=== PATIENT | male | born 1930 | race African-American/Black ===

== ENCOUNTER 2018-02-10 09:37 | Emergency (ER) | payer MEDICARE, MEDICAID ==
[2018-02-10] VITALS (7 sets, daily range): BP systolic 120–148; BP diastolic 44–62
[~2018-02-10] VITALS: Ht 170.2 cm; Wt 77.1 kg
[~2018-02-10 09:37] MED LIST: IBUPROFEN600 MG PO; VICODIN 5-5001 EACH PO
[2018-02-10] MEDS ORDERED: UNOBMED (09:48)
[2018-02-10] MEDS ORDERED: Cefepime HCl 2 GM in NS 110 ML IV STA (09:51)
[2018-02-10] MEDS ORDERED: Solu-MEDROL 125mg Inj IVP ONE (10:00)
[2018-02-10] MEDS ORDERED: Ipratropium 0.02% Inh Soln 2.5ml UD HHN ONE (10:00)
[2018-02-10] MEDS: Albuterol ud Inhalation HHN SCH ×3 (10:02→10:30)
--- NOTE | 2018-02-10 10:24 | Emergency Room Report ---
History of Present Illness General Chief Complaint: Dyspnea/Respdistress Source: Patient Present Illness HPI Patient presents with cough, shortness of breath and wheezing. He also has lack of appetite. In addition to that he's been having some chills. He's been feeling weak. The patient has a history of COPD and is still smoking. He doesn't have a machine at home but uses a inhaler. The patient denies any vomiting or nausea. He denies any significant chest pain at this time. He does have some dyspnea on exertion. There is no dysuria any denies any rash. He's had a headache recently. Allergies: Coded Allergies: No Known Allergies (Unverified , 02/10/18) Patient History Past Medical History: see triage record Social History: Reports: smoking Social History Narrative home by himself, but family check on him - Born [place] Reviewed Nursing Documentation: PMH: Agreed; PSxH: Agreed Nursing Documentation-PMH Past Medical History: No Stated History Review of Systems All Other Systems: negative except mentioned in HPI Physical Exam Vital Signs Date Time Temp Pulse Resp B/P (MAP) Pulse Ox O2 Delivery O2 Flow Rate FiO2 02/10/18 09:46 99.0 104 28 170/65 97 Room Air 99.0 02/10/18 10:02 21 Sp02 EP Interpretation: reviewed, normal General Appearance: alert, mild distress, Chronically Ill Eyes: bilateral eye normal inspection, bilateral eye PERRL ENT: moist mucus membranes Neck: full range of motion Respiratory: rales - L side, wheezing, expiration Cardiovascular #1: no edema, tachycardia, irregularly irregular Cardiovascular #2: 2+ radial (R) Gastrointestinal: decreased bowel sounds, scaphoid Genitourinary: no CVA tenderness Musculoskeletal: back normal, digits/nails normal, normal range of motion, no calf tenderness, Cristal's Sign negative Neurologic: alert, grossly normal - generalized weak Psychiatric: mood/affect normal Skin: other - hot Medical Decision Making Diagnostic Impression: Primary Impression: Right lower lobe pneumonia Qualified Codes: J18.1 - Lobar pneumonia, unspecified organism Additional Impressions: UTI (urinary tract infection) Qualified Codes: N30.00 - Acute cystitis without hematuria COPD exacerbation ER Course The patient presents febrile and respiratory distress. His oxygen saturation is good however is dyspneic and has wheezes and rales. Exam is consistent with pneumonia however differential also includes bronchitis and viral syndrome. Also need to exclude other possible sources for infection. Evaluation will be with EKG, chest x-ray blood cultures lactates and other labs. The patient retreated was slight Medrol breathing treatments Tylenol fluid hydration and antibiotics. EKG without injury. CXR with early RML infiltrate and COPD. WBC high normal. Pyuria. Renal insufficiency. Improving but still with wheezing. Discussed with Dr. Beverly who accepts the patient. Call [facility] as family want to transfer there. Not accept patients. Family refusing to go to other hospitals. I discussed risk of leaving AMA. Patient and family understand. They insist on leaving and going to [facility]. Calling [facility] to let them know patient signing out AMA. She and patient changed her mind (vacillating many times) and accepted going to [facility]. Laboratory Tests Test 02/10/18 10:10 02/10/18 10:15 02/10/18 11:35 White Blood Count 10.6 K/UL (4.8-10.8) Red Blood Count 4.02 M/UL (4.70-6.10) L Hemoglobin 12.5 G/DL (14.2-18.0) L Hematocrit 37.0 % (42.0-52.0) L Mean Corpuscular Volume 92 FL (80-99) Mean Corpuscular Hemoglobin 31.2 PG (27.0-31.0) H Mean Corpuscular Hemoglobin Concent 33.9 G/DL (32.0-36.0) Red Cell Distribution Width 11.8 % (11.6-14.8) Platelet Count 206 K/UL (150-450) Mean Platelet Volume 6.8 FL (6.5-10.1) Neutrophils (%) (Auto) 79.7 % (45.0-75.0) H Lymphocytes (%) (Auto) 13.4 % (20.0-45.0) L Monocytes (%) (Auto) 6.1 % (1.0-10.0) Eosinophils (%) (Auto) 0.3 % (0.0-3.0) Basophils (%) (Auto) 0.5 % (0.0-2.0) Prothrombin Time 10.5 SEC (9.30-11.50) Prothrombin Time INR 1.0 (0.9-1.1) PTT 28 SEC (23-33) Sodium Level 137 MMOL/L (136-145) Potassium Level 4.2 MMOL/L (3.5-5.1) Chloride Level 104 MMOL/L (98-107) Carbon Dioxide Level 22 MMOL/L (21-32) Anion Gap 11 mmol/L (5-15) Blood Urea Nitrogen 28 mg/dL (7-18) H Creatinine 1.4 MG/DL (0.55-1.30) H Estimate Glomerular Filtration Rate mL/min (>60) Glucose Level 84 MG/DL (74-106) Lactic Acid Level 2.20 mmol/L (0.66-2.22) 1.30 mmol/L (0.66-2.22) Calcium Level 9.4 MG/DL (8.5-10.1) Total Bilirubin 1.0 MG/DL (0.2-1.0) Aspartate Amino Transferase (AST) 30 U/L (15-37) Alanine Aminotransferase (ALT) 15 U/L (12-78) Alkaline Phosphatase 122 U/L (46-116) H Total Creatine Kinase 70 U/L (26-308) Troponin I 0.000 ng/mL (0.000-0.056) Pro-B-Type Natriuretic Peptide 666 pg/mL (0-125) H Total Protein 8.8 G/DL (6.4-8.2) H Albumin 3.1 G/DL (3.4-5.0) L Globulin 5.7 g/dL Albumin/Globulin Ratio 0.5 (1.0-2.7) L Urine Color Yellow Urine Appearance Turbid Urine pH 6 (4.5-8.0) Urine Specific [place] 1.010 (1.005-1.035) Urine Protein 3+ (NEGATIVE) H Urine Glucose (UA) Negative (NEGATIVE) Urine Ketones Negative (NEGATIVE) Urine Occult Blood 4+ (NEGATIVE) H Urine Nitrite Positive (NEGATIVE) H Urine Bilirubin Negative (NEGATIVE) Urine Urobilinogen 4 MG/DL (0.0-1.0) H Urine Leukocyte Esterase 2+ (NEGATIVE) H Urine RBC 15-20 /HPF (0 - 0) H Urine WBC 40-60 /HPF (0 - 0) H Urine Squamous Epithelial Cells Few /LPF (NONE/OCC) Urine Bacteria Many /HPF (NONE) H Urine Hyaline Casts 0-2 /LPF (NONE) H EKG Diagnostic Results Rate: tachycardiac Rhythm: other ST Segments: no acute changes Rhythm Strip Diag. Results EP Interpretation: yes Rhythm: other - ST rate 102 with frequent PVCs Chest X-Ray Diagnostic Results Chest X-Ray Diagnostic Results : Chest X-Ray Ordered: Yes # of Views/Limited/Complete: 1 View Indication: Other Interpretation: no effusion, no pneumothorax, other - Right lower lobe infiltrate Impression: Other Electronically Signed by: Electronically signed by Gee Santos MD Last Vital Signs Date Time Temp Pulse Resp B/P (MAP) Pulse Ox O2 Delivery O2 Flow Rate FiO2 02/10/18 21:11 97.9 86 24 141/56 96 Room Air 2.0 21 97.9 86 Status: improved Disposition: XFER SHT-TRM HOSP Condition: Serious Gee Santos M.D. February 10, 2018 10:23
[2018-02-10 10:47] LABS: APPEARANCE,URINE TURBID; BILIRUBIN, URINE NEGATIVE (NEGATIVE); GLUCOSE, URINE (UA) NEGATIVE (NEGATIVE); KETONES,URINE NEGATIVE (NEGATIVE); LEUKOCYTE ESTERASE ,URINE 2+ (NEGATIVE); NITRITE,URINE POSITIVE (NEGATIVE); PH,URINE 6 (4.5-8.0); PROTEIN,URINE 3+ (NEGATIVE); UROBILINOGEN,URINE 4 MG/DL (0.0-1.0)
[2018-02-10 10:54] LABS: COLOR,URINE YELLOW
[2018-02-10 11:01] LABS: ANION GAP 11 mmol/L (5-15); BASOPHILS % (AUTO) 0.5 % (0.0-2.0); BLOOD UREA NITROGEN 28 mg/dL (7-18); CALCIUM 9.4 MG/DL (8.5-10.1); CARBON DIOXIDE 22 MMOL/L (21-32); CHLORIDE 104 MMOL/L (98-107); CREATININE 1.4 MG/DL (0.55-1.30); EOSINOPHILS % (AUTO) 0.3 % (0.0-3.0); HEMOGLOBIN 12.5 G/DL (14.2-18.0); LYMPHOCYTES % (AUTO) 13.4 % (20.0-45.0); MEAN CORPUSCULAR VOLUME 92 FL (80-99); MONOCYTES % (AUTO) 6.1 % (1.0-10.0); NEUTROPHILS % (AUTO) 79.7 % (45.0-75.0); PLATELET COUNT 206 K/UL (150-450); POTASSIUM 4.2 MMOL/L (3.5-5.1); RED BLOOD COUNT 4.02 M/UL (4.70-6.10); RED CELL DISTRIBUTION WIDTH 11.8 % (11.6-14.8); SODIUM 137 MMOL/L (136-145); WHITE BLOOD COUNT 10.6 K/UL (4.8-10.8)
[2018-02-10 11:12] LABS: ALANINE AMINOTRANSFERASE 15 U/L (12-78); ALBUMIN 3.1 G/DL (3.4-5.0); ALBUMIN/GLOBULIN RATIO 0.5 (1.0-2.7); ALKALINE PHOSPHATASE 122 U/L (46-116); ASPARTATE AMINO TRANSFERASE 30 U/L (15-37); CREATINE KINASE 70 U/L (26-308)
--- NOTE | 2018-02-10 11:23 | Diagnostic Imaging Report ---
Indication: Cough Comparison: 05/22/2013 A single view chest radiograph was obtained. Findings: Basilar reticular densities are prominent. Some of this is due to atelectasis. However, findings largely present on the prior occasion and therefore chronic. The upper lung donaldson appear slightly hyperlucent. This is suggestive of COPD. Heart is mildly enlarged. Bones are unremarkable IMPRESSION: Chronic lung disease
[2018-02-10] MEDS ORDERED: Albuterol ud Inhalation HHN ONE (15:00)
== END 2018-02-10 21:16 | disposition short-term general hospital (02) ==
LOC: EMR 09:58
DX: J18.9 Pneumonia, unspecified organism (principal); N39.0 Urinary tract infection, site not specified; J44.1 Chronic obstructive pulmonary disease with (acute) exacerbation; F17.200 Nicotine dependence, unspecified, uncomplicated
CPT/HCPCS: 36415; 71045; 80053; 81003; 82550; 83605; 83880; 84484; 85025; 85610; 85730; 87040; 87086; 87181; 93005; 94640; 94664; 99285; J1956; J2930

== ENCOUNTER 2019-02-03 18:52 | Inpatient (IN) | payer OTHER, MEDICAID ==
[~2019-02-03] VITALS: Ht 162.6 cm; Wt 67.1 kg
[~2019-02-03 18:52] MED LIST changes: +AMLODIPINE BES2.5 MG ORAL; +KEFLEX500 MG ORAL; +UNOBMED
[2019-02-03] MEDS ORDERED: Solu-MEDROL 125mg Inj IVP ONE (19:00)
--- NOTE | 2019-02-03 19:00 | NUR ---
Note undone in EDM - 02/03/19 at 2031 by LUIZA ED Nurse Note: Patient presents to ER due to respiratory distress. Neighbor checked on the patient and patient was not able to open the door. EMS found patient with RR 45 and pulse oximetry reading @ ~ 60% on room air. Patient awake, alert, oriented x 3. Labored breathing with RR 40 noted with diminished breath sounds in all lung donaldson. Patient arrived here with CPAP. Per EMS, pulse oximetry reading improved to 90% after CPAP. Placed patient on cardiac montior. Sinus tachycardia with 125 HR noted. Pulse oximetry reading > 94% with BiPAP.
--- NOTE | 2019-02-03 19:00 | NUR ---
ED Nurse Note: RT placed patient on BiPAP. Pulse oximetry reading > 94% with RR 47. Patient remained awake and able to follow commands. RN noticed bilateral wrist swelling, warm to touch. Per patient, patient has hx of arthritis and reports no injury. ERMD at bedside and notified. RN inserted IV to the right forearm (no redness or swelling noted). RNs unable to establish any IVs on any other area at this time. ERMD made aware.
--- NOTE | 2019-02-03 19:00 | NUR ---
ED Nurse Note: Patient presents to ER due to respiratory distress. Neighbor checked on the patient and patient was not able to open the door. EMS found patient with RR 45 and pulse oximetry reading @ ~ 60% on room air. Patient awake. Labored breathing with RR 40 noted with diminished breath sounds in all lung donaldson. Patient unable to answer questions due to SOB and withdraws from pain. Patient arrived here with CPAP. Per EMS, pulse oximetry reading improved to 90% after CPAP. Placed patient on cardiac montior. Sinus tachycardia with 125 HR noted. Pulse oximetry reading > 94% with BiPAP.
--- NOTE | 2019-02-03 19:05 | NUR ---
ED Nurse Note: Report given to MARICEL Gamboa. Patient on BiPAP with pulse oximetry reading > 94%.
--- NOTE | 2019-02-03 19:06 | NUR ---
ED Nurse Note: Received report from Liza/MARICEL. Pt is awake with respiration distress . Bp 170/103. P 128, O 2 76%. Pt is ready for intubation.
[2019-02-03] MEDS: Ipratropium 0.02% Inh Soln 2.5ml UD HHN SCH ×3 (19:08→21:05)
[2019-02-03] MEDS: Albuterol ud Inhalation HHN SCH ×3 (19:08→21:05)
[2019-02-03 19:24] LABS: BASOPHILS % (AUTO) 0.5 % (0.0-2.0); EOSINOPHILS % (AUTO) 0.1 % (0.0-3.0); HEMATOCRIT 40.8 % (42.0-52.0); HEMOGLOBIN 13.6 G/DL (14.2-18.0); LYMPHOCYTES % (AUTO) 9.7 % (20.0-45.0); MEAN CORPUSCULAR VOLUME 91 FL (80-99); MONOCYTES % (AUTO) 8.2 % (1.0-10.0); NEUTROPHILS % (AUTO) 81.6 % (45.0-75.0); PLATELET COUNT 187 K/UL (150-450); RED BLOOD COUNT 4.49 M/UL (4.70-6.10); RED CELL DISTRIBUTION WIDTH 12.1 % (11.6-14.8); WHITE BLOOD COUNT 15.7 K/UL (4.8-10.8)
--- NOTE | 2019-02-03 19:30 | NUR ---
ED Nurse Note: Pt was intubated by Dr. Abel/ Jacqui/ RACHELLE. Vet setting : AC 14, Tv 500, O2 100%, Peep 5. ETT 8 #.
[2019-02-03 19:36] VITALS: BP 113/76
[2019-02-03 19:37] LABS: ANION GAP 22 mmol/L (5-15); BLOOD UREA NITROGEN 53 mg/dL (7-18); CALCIUM 10.6 MG/DL (8.5-10.1); CARBON DIOXIDE 15 MMOL/L (21-32); CHLORIDE 106 MMOL/L (98-107); CREATININE 3.3 MG/DL (0.55-1.30); SODIUM 143 MMOL/L (136-145)
--- NOTE | 2019-02-03 19:38 | Emergency Room Report ---
History of Present Illness General Chief Complaint: Dyspnea/Respdistress Source: Patient, Medical Record, EMS Present Illness HPI Patient presents emergency department today complaint acute onset of severe shortness of breath. Patient has a history of COPD was a smoker. Patient apparently was found to be severely short of breath by her further evaluation. Patient was placed on BiPAP prior to arrival. Patient is unable to provide much history because he was so severely short of breath is only able to speak 1 word sentences. Symptoms noted to be highly severe. Patient was tachypneic tachycardic. No other modifying factors. No other associated signs and symptoms. No other complaints were noted. Allergies: Coded Allergies: No Known Allergies (Unverified , 02/10/18) UNABLE TO ASSESS (Unverified , 02/03/19) Patient History Past Medical History: COPD Past Surgical History: none Pertinent Family History: none Social History: Reports: smoking Reviewed Nursing Documentation: PMH: Agreed; PSxH: Agreed Nursing Documentation-PMH Past Medical History: No History, Except For Hx COPD: Yes Review of Systems All Other Systems: limited - Patient is critical Physical Exam Vital Signs Date Time Temp Pulse Resp B/P (MAP) Pulse Ox O2 Delivery O2 Flow Rate FiO2 02/03/19 18:54 95.5 126 47 170/107 02/03/19 19:00 Bi-pap 100 02/03/19 19:09 93 Sp02 EP Interpretation: reviewed, normal General Appearance: alert, severe distress, thin Head: normocephalic, atraumatic Eyes: bilateral eye normal inspection ENT: hearing grossly normal, dry mucus membranes, other - Severe respiratory distress Neck: normal inspection, supple Respiratory: respiratory distress, decreased breath sounds, accessory muscle use, wheezing, expiration, inspiration Cardiovascular #1: no edema, tachycardia Gastrointestinal: normal inspection, soft, no hernia Genitourinary: no CVA tenderness Musculoskeletal: normal inspection, back normal Neurologic: alert, responsive, grossly normal Psychiatric: depressed affect, anxious Skin: normal inspection, normal color, no rash Procedures Critical Care Time Critical Care Time Patient had a critical medical condition which untreated could potentially result in life or limb threatening injury. Total critical care time excluding procedures was approximately 45 minutes. Intubation Intubation : Consent: Emergent Intubation Method: orotracheal Tube Size (cm): 8.0 Medications: Etomidate, Succinylcholine Breath Sounds after Intubation: equal Intubation Complications: no complications Post Intubation Xray: Yes Attempts: One Patient Tolerated: Well Complications: None Medical Decision Making Diagnostic Impression: Primary Impression: Respiratory distress Additional Impressions: Severe sepsis COPD exacerbation Pneumonia ER Course Patient presents to the emergency department today with severe shortness of breath. Differential considerations include pneumonia, COPD exacerbation, pneumothorax, CHF just to name a few. Given the severity of the patient's presentation I felt this is a highly complex patient. This patient required extensive workup. Patient was severely dyspneic requiring emergent intubation. BiPAP failed. Patient was intubated. ABG improved. Chest x-ray shows ET tube in good position. There is evidence of increased densities in the lungs with elevated white blood cell count we will start IV antibiotics. Blood cultures were obtained prior to IV antibiotics ministration. Patient lactic acid level was also elevated. Therefore patient was started IV fluid boluses. Focused sepsis exam was performed. Because of patient's presentation patient will require admission. Case was discussed with Dr. Dowling for admission. Patient will be admitted to intensive care unit for the treatment. Labs Test 02/03/19 19:10 02/03/19 20:20 White Blood Count 15.7 K/UL (4.8-10.8) Red Blood Count 4.49 M/UL (4.70-6.10) Hemoglobin 13.6 G/DL (14.2-18.0) Hematocrit 40.8 % (42.0-52.0) Mean Corpuscular Volume 91 FL (80-99) Mean Corpuscular Hemoglobin 30.2 PG (27.0-31.0) Mean Corpuscular Hemoglobin Concent 33.2 G/DL (32.0-36.0) Red Cell Distribution Width 12.1 % (11.6-14.8) Platelet Count 187 K/UL (150-450) Mean Platelet Volume 6.0 FL (6.5-10.1) Neutrophils (%) (Auto) 81.6 % (45.0-75.0) Lymphocytes (%) (Auto) 9.7 % (20.0-45.0) Monocytes (%) (Auto) 8.2 % (1.0-10.0) Eosinophils (%) (Auto) 0.1 % (0.0-3.0) Basophils (%) (Auto) 0.5 % (0.0-2.0) Sodium Level 143 MMOL/L (136-145) Potassium Level 4.0 MMOL/L (3.5-5.1) Chloride Level 106 MMOL/L (98-107) Carbon Dioxide Level 15 MMOL/L (21-32) Anion Gap 22 mmol/L (5-15) Blood Urea Nitrogen 53 mg/dL (7-18) Creatinine 3.3 MG/DL (0.55-1.30) Estimat Glomerular Filtration Rate mL/min (>60) Glucose Level 112 MG/DL (74-106) Calcium Level 10.6 MG/DL (8.5-10.1) Total Bilirubin 1.8 MG/DL (0.2-1.0) Direct Bilirubin 0.9 MG/DL (0.0-0.3) Aspartate Amino Transf (AST/SGOT) 45 U/L (15-37) Alanine Aminotransferase (ALT/SGPT) 20 U/L (12-78) Alkaline Phosphatase 129 U/L (46-116) Creatine Kinase MB 3.5 NG/ML (0.0-3.6) Troponin I 0.120 ng/mL (0.000-0.056) Pro-B-Type Natriuretic Peptide 6053 pg/mL (0-125) Total Protein 10.0 G/DL (6.4-8.2) Albumin 3.4 G/DL (3.4-5.0) Globulin 6.6 g/dL Albumin/Globulin Ratio 0.5 (1.0-2.7) Lipase 75 U/L (73-393) Lactic Acid Level 4.80 mmol/L (0.4-2.0) EKG Diagnostic Results Rate: tachycardiac Rhythm: NSR ST Segments: other - Nonspecific ST segment changes Rhythm Strip Diag. Results EP Interpretation: yes Rate: 130 Rhythm: NSR, no PVC's, no ectopy Chest X-Ray Diagnostic Results Chest X-Ray Diagnostic Results : Chest X-Ray Ordered: Yes # of Views/Limited/Complete: 1 View Indication: Shortness of Breath EP Interpretation: Yes Interpretation: no effusion, no pneumothorax, other - ET tube in good position, basilar infiltrates versus atelectasis. Impression: Other - ET tube in good position, possible pneumonia Electronically Signed by: Electronically signed by Leno Abel MD Last Vital Signs Date Time Temp Pulse Resp B/P (MAP) Pulse Ox O2 Delivery O2 Flow Rate FiO2 02/03/19 19:10 135 47 Bi-pap 50 02/03/19 19:09 93 02/03/19 18:54 95.5 170/107 Status: improved Disposition: ADMITTED INPATIENT Condition: Critical Referrals: NON PHYSICIAN (PCP) Leno Abel MD Feb 03, 2019 19:38
[2019-02-03] MEDS ORDERED: Azithromycin 500 MG in D5W 275 ML IVPB ONE (19:45)
[2019-02-03] MEDS ORDERED: cefTRIAXone 1 GM in NS 55 ML IVPB ONE (19:45)
[2019-02-03 19:50] LABS: ALANINE AMINOTRANSFERASE 20 U/L (12-78); ALBUMIN 3.4 G/DL (3.4-5.0); ALBUMIN/GLOBULIN RATIO 0.5 (1.0-2.7); ALKALINE PHOSPHATASE 129 U/L (46-116); ASPARTATE AMINO TRANSFERASE 45 U/L (15-37); BILIRUBIN,TOTAL 1.8 MG/DL (0.2-1.0); CKMB 3.5 NG/ML (0.0-3.6)
[2019-02-03 20:00] LABS: BILIRUBIN,DIRECT 0.9 MG/DL (0.0-0.3)
[2019-02-03] MEDS ORDERED: LORazepam Inj 2mg/ml 1ml ONE (20:03)
--- NOTE | 2019-02-03 20:11 | Diagnostic Imaging Report ---
EXAM: XR Chest, 1 View CLINICAL HISTORY: COUGH TECHNIQUE: Frontal view of the chest. COMPARISON: Chest x-ray February 10, 2018 FINDINGS: Lungs: Lungs again show generalized hyperlucency with coarsened interstitial pattern opacities in the bilateral lung bases. Pleural space: Unremarkable. No pneumothorax. Heart: No change in mild cardiac enlargement. Mediastinum: Unremarkable. Bones/joints: Unremarkable. Tubes, lines and devices: Interval endotracheal intubation with the ET tube terminating 3.5 cm above justin. IMPRESSION: Satisfactory interval endotracheal intubation with similar-appearing findings of chronic lung disease. No pneumothorax.
[2019-02-03] MEDS ORDERED: LORazepam 20 MG in NS 90 ML IV ONE (20:15)
[2019-02-03] MEDS ORDERED: LORazepam Inj 2mg/ml 1ml IV ONE ×2 (20:15→20:45)
[2019-02-03] MEDS ORDERED: Succinylcholine 20mg/ml 10ml vial IV ONE (20:45)
[2019-02-03] MEDS ORDERED: Etomidate 40mg/20ml Inj IV ONE (20:45)
--- NOTE | 2019-02-03 20:49 | NUR ---
ED Nurse Note: Started Ativan drip at 1mg/hr ( 5ml/hr).
[2019-02-03] MEDS ORDERED: Sodium Chloride 1,900 ML IVLG ONE (21:15)
--- NOTE | 2019-02-03 21:26 | NUR ---
Gloria Rivas ([facility]) - [phone]
--- NOTE | 2019-02-03 22:25 | Pulmonolgy Critical Care Note ---
Critical Care - Asmt/Plan Assessment/Plan: Pulmonary CCM Note HPI Patient is an 88 year old man with h/o COPD who presented complaining of worsening shortness of breath, acute in onset. Patient was placed on BiPAP prior to arrival, subsequently intubated in the ED. No other complaints were noted in the ED. Allergies: No Known Allergies Past Medical History: COPD Past Surgical History: none Social History: Reports: smoking All Other Systems: limited Physical Exam Vital Signs Noted Date Time Temp Pulse Resp B/P (MAP) Pulse Ox O2 Delivery O2 Flow Rate FiO2 02/03/19 18:54 95.5 126 47 170/107 02/03/19 19:00 Bi-pap 100 02/03/19 19:09 93 General Appearance: Sedated, on ventilator, mild wasting Head: normocephalic, atraumatic Eyes: bilateral eye normal inspection ENT: Dry mucus membranes, other - JVP not elevated Neck: normal inspection, supple Respiratory: respiratory distress, decreased breath sounds, accessory muscle use, wheezing, expiration, inspiration Cardiovascular: HS1, HS2, Normal, RRR, no edema, tachycardia Gastrointestinal: normal inspection, soft, no hernia Genitourinary: no CVA tenderness Musculoskeletal: normal inspection, back normal Neurologic: Sedated, no focal signs, no seizures, grossly normal Psychiatric: NA Skin: normal inspection, normal color, no rash Impression: Respiratory Failure COPD exacerbation Pneumonia Plan: Broad spectrum antibiotics IV Solumedrol HHN IV fluid boluses PRN Urinary catheter PPX Sedation Titrate O2 ABG Labs Test 02/03/19 19:10 02/03/19 20:20 White Blood Count 15.7 K/UL (4.8-10.8) Red Blood Count 4.49 M/UL (4.70-6.10) Hemoglobin 13.6 G/DL (14.2-18.0) Hematocrit 40.8 % (42.0-52.0) Mean Corpuscular Volume 91 FL (80-99) Mean Corpuscular Hemoglobin 30.2 PG (27.0-31.0) Mean Corpuscular Hemoglobin Concent 33.2 G/DL (32.0-36.0) Red Cell Distribution Width 12.1 % (11.6-14.8) Platelet Count 187 K/UL (150-450) Mean Platelet Volume 6.0 FL (6.5-10.1) Neutrophils (%) (Auto) 81.6 % (45.0-75.0) Lymphocytes (%) (Auto) 9.7 % (20.0-45.0) Monocytes (%) (Auto) 8.2 % (1.0-10.0) Eosinophils (%) (Auto) 0.1 % (0.0-3.0) Basophils (%) (Auto) 0.5 % (0.0-2.0) Sodium Level 143 MMOL/L (136-145) Potassium Level 4.0 MMOL/L (3.5-5.1) Chloride Level 106 MMOL/L (98-107) Carbon Dioxide Level 15 MMOL/L (21-32) Anion Gap 22 mmol/L (5-15) Blood Urea Nitrogen 53 mg/dL (7-18) Creatinine 3.3 MG/DL (0.55-1.30) Estimat Glomerular Filtration Rate mL/min (>60) Glucose Level 112 MG/DL (74-106) Calcium Level 10.6 MG/DL (8.5-10.1) Total Bilirubin 1.8 MG/DL (0.2-1.0) Direct Bilirubin 0.9 MG/DL (0.0-0.3) Aspartate Amino Transf (AST/SGOT) 45 U/L (15-37) Alanine Aminotransferase (ALT/SGPT) 20 U/L (12-78) Alkaline Phosphatase 129 U/L (46-116) Creatine Kinase MB 3.5 NG/ML (0.0-3.6) Troponin I 0.120 ng/mL (0.000-0.056) Pro-B-Type Natriuretic Peptide 6053 pg/mL (0-125) Total Protein 10.0 G/DL (6.4-8.2) Albumin 3.4 G/DL (3.4-5.0) Globulin 6.6 g/dL Albumin/Globulin Ratio 0.5 (1.0-2.7) Lipase 75 U/L (73-393) Lactic Acid Level 4.80 mmol/L (0.4-2.0) EKG: Rate: tachycardiac Rhythm: NSR ST Segments: other - Nonspecific ST segment changes Chest X-Ray: no effusion, no pneumothorax, other - ET tube in good position, basilar infiltrates versus atelectasis. Critical Care - Objective Last 24 Hour Vital Signs Date Time Temp Pulse Resp B/P (MAP) Pulse Ox O2 Delivery O2 Flow Rate FiO2 02/03/19 22:09 102 25 100 02/03/19 22:09 102 25 100 Mechanical Ventilator 100 02/03/19 21:06 109 19 100 Mechanical Ventilator 100 02/03/19 21:05 117 37 100 Mechanical Ventilator 100 02/03/19 20:52 14 Endotracheal Tube 100 02/03/19 20:40 110 31 100 Mechanical Ventilator 100 02/03/19 20:36 117 37 100 100 02/03/19 19:36 107 23 113/76 98 Ambu-Bag 15.0 02/03/19 19:30 118 19 100 02/03/19 19:10 135 47 Bi-pap 50 02/03/19 19:09 53 47 93 Bi-pap 50 02/03/19 19:07 135 47 Facial 50 02/03/19 19:00 126 47 Bi-pap 100 02/03/19 19:00 100 02/03/19 18:54 95.5 126 47 170/107 Critical Care - Subjective ROS Limited/Unobtainable: Yes Condition: critical IV Access: peripheral EKG Rhythm: Sinus Rhythm FI02: 100 Vent Support Breath Rate: 14 Vent Support Mode: AC Vent Tidal Volume: 500 Sputum Amount: Large PIP: 23 ET-Tube: 8.0 ET Position: 23 Gee Macedo MD Feb 03, 2019 22:25
[2019-02-03] MEDS ORDERED: ZYTIGA250 MG ORAL (22:45)
[2019-02-03] MEDS ORDERED: MEGESTROL ACETA20 M1 PO (22:45)
--- NOTE | 2019-02-03 23:00 | NUR ---
TRANSFER TO FLOOR: Patient transferred to ICU/ 246 J as ordered. Report given to Jenaro/RN. Belongings sent with Pt and rechecked with RN. Pt is A/O X 1-2, Pt is intubated with stable vital signs.
--- NOTE | 2019-02-03 23:08 | NUR ---
NURSE NOTES: RECEIVED PATIENT BY ER NURSE MARICEL ALMENDAREZ VIA IRV[place]. PATIENT LETHARGIC, ON ETT TO VENT AV 14/ TV 500/FIO2 100%/ PEEP 5, O2 SATURATION 100% NOTED, ABDOMEN SOFT, NON TENDER, NO N/V NOTED, PERIPHERAL LINE TO BOTH FORE ARM 20G, INTACT AND PATENT, REDNESS TO RIGHT KNEE AREA, SKIN INTACT STATUS, MADE LOWER BED POSITION, HOB 30 DEGREE, PROVIDED CALL LIGHT WITHIN REACH, WILL CONTINUE TO MONITOR.
[2019-02-03 23:20] VITALS: BP 161/78
[2019-02-04] VITALS (33 sets, daily range): BP systolic 107–167; BP diastolic 61–89
[2019-02-04] MEDS ORDERED: D5NS 1,000 ML IV SCH
[2019-02-04] MEDS ORDERED: Pantoprazole Inj IVP SCH
[2019-02-04] MEDS ORDERED: fentaNYL 100 mcg/2 mL IV PRN (00:30)
--- NOTE | 2019-02-04 00:30 | NUR ---
NURSE NOTES: SEEN THE PATIENT BY DR. GREENE.
[2019-02-04] MEDS: Pantoprazole Inj IVP SCH ×2 (00:40→23:57)
[2019-02-04] MEDS: Heparin 5000 units/ml inj SUBQ SCH ×3 (00:44→20:53)
--- NOTE | 2019-02-04 01:15 | NUR ---
NURSE NOTES: INSERTED NGT ORDERED THAT VERIFIED WITH 2 NURSES AND SECURED, WILL CONTINUE TO MONITOR.
--- NOTE | 2019-02-04 01:45 | NUR ---
NURSE NOTES: INSERTED 12FR. HERNANDEZ CATH ORDERED, YELLOW URINE OUTED GRAVITY, WILL CONTINUE TO MONITOR.
[2019-02-04] MEDS: Midazolam/D5W 100ml 100 ML IVPB PRN ×2 (02:00→20:07)
--- NOTE | 2019-02-04 02:00 | NUR ---
NURSE NOTES: STARTED VERSED DRIP 1MG/HR FOR SEDATION ORDERED, KEPT RASS -1, WILL CONTINUE TO MONITOR.
[2019-02-04] MEDS: D5NS 1,000 ML IV SCH ×3 (02:37→18:36)
[2019-02-04 02:57] LABS: APPEARANCE,URINE CLEAR; BILIRUBIN, URINE NEGATIVE (NEGATIVE); GLUCOSE, URINE (UA) 2+ (NEGATIVE); KETONES,URINE 1+ (NEGATIVE); LEUKOCYTE ESTERASE ,URINE NEGATIVE (NEGATIVE); NITRITE,URINE NEGATIVE (NEGATIVE); PH,URINE 6 (4.5-8.0); PROTEIN,URINE 3+ (NEGATIVE); UROBILINOGEN,URINE NORMAL MG/DL (0.0-1.0)
[2019-02-04 03:01] LABS: COLOR,URINE YELLOW
--- NOTE | 2019-02-04 03:46 | Diagnostic Imaging Report ---
EXAM: XR Abdomen, 2 Views CLINICAL HISTORY: NGT TECHNIQUE: Frontal view of the abdomen/pelvis with upright view of the abdomen. COMPARISON: No relevant prior studies available. FINDINGS: Lower thorax: Redemonstration of diffuse bilateral airspace disease with coarse interstitial pattern. This is unchanged compared to 02/03/19 chest x-ray. Intraperitoneal space: No free air. Gastrointestinal tract: Side-port projects distal to the GE junction. Mild distention of the visualized bowel loops in the upper abdomen. Bones/joints: Unremarkable. Tubes, lines and devices: The NG tube, coursing beyond the GE junction, tip not included on this radiograph although likely in the stomach. IMPRESSION: NG tube, tip not seen on this film although likely in the stomach. Nonspecific bowel gas pattern in the visualized upper abdomen
--- NOTE | 2019-02-04 04:00 | NUR ---
NURSE NOTES: MORNING CARE WAS DONE, NO PAIN OR DISTRESS NOTED.
[2019-02-04] MEDS: Albuterol/Ipratropium 3ml neb HHN SCH ×6 (05:20→23:21)
[2019-02-04] MEDS: Solu-MEDROL 125mg Inj IVP SCH ×3 (05:52→21:46)
--- NOTE | 2019-02-04 06:00 | NUR ---
NURSE NOTES: F/C INTACT AND PATENT, YELLOW URINE OUTED, NO ACUTE DISTRESS NOTED AT THIS TIME.
[2019-02-04] MEDS: NovoLOG Insulin Flexpen SUBQ SCH ×4 (06:15→20:52)
[2019-02-04 06:18] LABS: HEMATOCRIT 38.6 % (42.0-52.0); HEMOGLOBIN 12.6 G/DL (14.2-18.0); MEAN CORPUSCULAR VOLUME 94 FL (80-99); PLATELET COUNT 176 K/UL (150-450); RED CELL DISTRIBUTION WIDTH 12.6 % (11.6-14.8); WHITE BLOOD COUNT 13.6 K/UL (4.8-10.8)
[2019-02-04 06:32] LABS: ANION GAP 16 mmol/L (5-15); BLOOD UREA NITROGEN 47 mg/dL (7-18); CALCIUM 9.6 MG/DL (8.5-10.1); CARBON DIOXIDE 18 MMOL/L (21-32); CHLORIDE 107 MMOL/L (98-107); CREATININE 2.4 MG/DL (0.55-1.30); POTASSIUM 2.9 MMOL/L (3.5-5.1); SODIUM 141 MMOL/L (136-145)
[2019-02-04] MEDS ORDERED: GABAPENTIN300 MG ORAL (06:37)
[2019-02-04] MEDS ORDERED: MEGESTROL ACETA20 M1 PO (06:37)
[2019-02-04] MEDS ORDERED: ZYTIGA250 MG ORAL (06:37)
--- NOTE | 2019-02-04 07:12 | NUR ---
HAND-OFF: Report given to MARICEL COYLE.
--- NOTE | 2019-02-04 07:15 | NUR ---
NURSE NOTES: Report received from MARICEL Peterson
--- NOTE | 2019-02-04 07:16 | NUR ---
RESPIRATORY NOTE: Received pt on vent with settings of 14/500/35%/+5. The pt is intubated with a size 8.0 ET tube, the pt is sleeping/sedated. The patient is in sync with ventilator, and not in any distress and stable. Ambu bag at bedside, vent plugged into red outlet, alarms on and audible. Will continue to monitor pt.
--- NOTE | 2019-02-04 07:36 | NUR ---
NURSE NOTES: Unable to reach daughter jennifer Rivas for Picc line consent.Unable to also leave the voice mail.
--- NOTE | 2019-02-04 07:40 | NUR ---
NURSE NOTES: Patient received from MARICEL Peterson.Pt obtunded ,afebrile and responsive to deep pain.Orally intubated ETT 06/02 AC 14 Vt 500 FiO2 35% and peep 5.NGT right nare patent and placement check and intact with no residual.HOB elevated to prevent aspiration.Iv line RFA/LFA/20G patent with no apparent infiltration running Versed at 1mg and D5NS at 60cc/hr,NS at 50cc?hr.Sanon catheter in place draining concentrate urine with no apparent sediments. Kept clean and dry,mouth care done.Turned and repositioned.Call light within easy reach.
--- NOTE | 2019-02-04 07:41 | History & Physical ---
History and Physical History & Physicial History and Physical: HPI Patient is an 88 year old man with h/o COPD who presented complaining of worsening shortness of breath, acute in onset. Patient was placed on BiPAP prior to arrival, subsequently intubated in the ED. No other complaints were noted in the ED. Allergies: No Known Allergies Past Medical History: COPD Past Surgical History: none Social History: Reports: smoking All Other Systems: limited Physical Exam Vital Signs Noted General Appearance: Sedated, on ventilator, mild wasting Head: normocephalic, atraumatic Eyes: bilateral eye normal inspection ENT: Dry mucus membranes, other - JVP not elevated Neck: normal inspection, supple Respiratory: respiratory distress, decreased breath sounds, accessory muscle use, wheezing, expiration, inspiration Cardiovascular: HS1, HS2, Normal, RRR, no edema, tachycardia Gastrointestinal: normal inspection, soft, no hernia Genitourinary: no CVA tenderness Musculoskeletal: normal inspection, back normal Neurologic: Sedated, no focal signs, no seizures, grossly normal Psychiatric: NA Skin: normal inspection, normal color, no rash Impression: Respiratory Failure COPD exacerbation Pneumonia Plan: Broad spectrum antibiotics IV Solumedrol HHN IV fluid boluses PRN Urinary catheter PPX Sedation Titrate O2 ABG Labs Test 02/03/19 19:10 02/03/19 20:20 White Blood Count 15.7 K/UL (4.8-10.8) Red Blood Count 4.49 M/UL (4.70-6.10) Hemoglobin 13.6 G/DL (14.2-18.0) Hematocrit 40.8 % (42.0-52.0) Mean Corpuscular Volume 91 FL (80-99) Mean Corpuscular Hemoglobin 30.2 PG (27.0-31.0) Mean Corpuscular Hemoglobin Concent 33.2 G/DL (32.0-36.0) Red Cell Distribution Width 12.1 % (11.6-14.8) Platelet Count 187 K/UL (150-450) Mean Platelet Volume 6.0 FL (6.5-10.1) Neutrophils (%) (Auto) 81.6 % (45.0-75.0) Lymphocytes (%) (Auto) 9.7 % (20.0-45.0) Monocytes (%) (Auto) 8.2 % (1.0-10.0) Eosinophils (%) (Auto) 0.1 % (0.0-3.0) Basophils (%) (Auto) 0.5 % (0.0-2.0) Sodium Level 143 MMOL/L (136-145) Potassium Level 4.0 MMOL/L (3.5-5.1) Chloride Level 106 MMOL/L (98-107) Carbon Dioxide Level 15 MMOL/L (21-32) Anion Gap 22 mmol/L (5-15) Blood Urea Nitrogen 53 mg/dL (7-18) Creatinine 3.3 MG/DL (0.55-1.30) Estimat Glomerular Filtration Rate mL/min (>60) Glucose Level 112 MG/DL (74-106) Calcium Level 10.6 MG/DL (8.5-10.1) Total Bilirubin 1.8 MG/DL (0.2-1.0) Direct Bilirubin 0.9 MG/DL (0.0-0.3) Aspartate Amino Transf (AST/SGOT) 45 U/L (15-37) Alanine Aminotransferase (ALT/SGPT) 20 U/L (12-78) Alkaline Phosphatase 129 U/L (46-116) Creatine Kinase MB 3.5 NG/ML (0.0-3.6) Troponin I 0.120 ng/mL (0.000-0.056) Pro-B-Type Natriuretic Peptide 6053 pg/mL (0-125) Total Protein 10.0 G/DL (6.4-8.2) Albumin 3.4 G/DL (3.4-5.0) Globulin 6.6 g/dL Albumin/Globulin Ratio 0.5 (1.0-2.7) Lipase 75 U/L (73-393) Lactic Acid Level 4.80 mmol/L (0.4-2.0) EKG: Rate: tachycardiac Rhythm: NSR ST Segments: other - Nonspecific ST segment changes Chest X-Ray: no effusion, no pneumothorax, other - ET tube in good position, basilar infiltrates versus atelectasis. Gee Macedo MD Feb 04, 2019 07:41
--- NOTE | 2019-02-04 08:03 | NUR ---
NURSE NOTES: New order received from Dr Macedo regarding potassium 2.9 and Troponin 0.339.Order noted and carry out.
[2019-02-04] MEDS ORDERED: Cephalexin 500mg cap ORAL SCH (09:00)
[2019-02-04] MEDS: Aspirin Baby 81mg NG SCH (09:04)
--- NOTE | 2019-02-04 09:20 | NUR ---
CASE MANAGEMENT: REVIEW 88Y/M BIBA FROM HOME CC: RESP DISTRESS SAT 60% ROOM AIR SI: RESP FAILURE . COPD EXACERBATION . PNA T 95.5 HR 126 RR 47 BP 170/107 100% MECH VENT FIO2 100 WBC 15.7 LACTIC ACID 4.80 BUN 47 CR 2.4 ABG: PH 7.377 PCO2 27.2 PO2 494.5 HCO3 15.6 IS: SOLU MEDROL IV X1 ATROVENT HHN X1 ALBUTEROL HHN X1 AZITHROMYCIN IV X1 ATIVAN IV X1 NS IVF BOLUS X1 PATIENT ADMITTED TO ICU 02/03/2019 DCP: PATIENT IS FROM HOME
[2019-02-04] MEDS ORDERED: Tubing IV Secondary IV ONE (09:55)
[2019-02-04] MEDS ORDERED: D5NS 1000ml IV ONE (09:55)
--- NOTE | 2019-02-04 10:07 | NUR ---
RD ASSESSMENT & RECOMMENDATIONS SEE CARE ACTIVITY FOR COMPLETE ASSESSMENT DAILY ESTIMATED NEEDS: Needs based on Critical care/ 62.7kg 22-28 kcals/kg 5121-3487 total kcals 1.2-2 g protein/kg 75-125 g total protein 25-30 mL/kg 9033-8199 total fluid mLs NUTRITION DIAGNOSIS: * Swallowing difficulty R/T respiratory status as evidenced by pt orally intubated, NPO. * Altered nutrition related lab values R/T clinical condition as evidenced by low K (2.9), elev creat (2.4 trend down), elev BG (279, 112), pt on solumedrol. CURRENT DIET:NPO PO DIET RECOMMENDATIONS: FURNACE STOCK INSPECTOR eval post extubation ENTERAL NUTRITION RECOMMENDATIONS: Glucerna 1.2 @ 55ml/hr x 24 hrs to provide 1320ml, 1584kcal, 79g prot, 1062ml free water * As medically appropriate, initiate TF * Initiate Glucerna 1.2 @ 25ml/hr x 6 hrs, advance 10ml q 4-6 hrs as tolerated to goal rate. ADDITIONAL RECOMMENDATIONS: * Calibrated bedscale wt for accurate CBW * Monitor lytes, replete as needed (low K) * Monitor BGs closely while on solumedrol * A1C for eval of glycemic control
--- NOTE | 2019-02-04 10:15 | NUR ---
NURSE NOTES: 2 D echo done, awaiting result.Turned and repositioned.
--- NOTE | 2019-02-04 12:20 | NUR ---
NURSE NOTES: Patient turned and repositioned.Mouth care done.Relayed new potassium level to Dr Macedo to give another additional dose of 30MeQ.Order noted and carry out.
--- NOTE | 2019-02-04 12:55 | NUR ---
RESPIRATORY NOTE: PT RECEIVED IN CURRENT VENT SETTINGS: AC/VC 14 VT500 PEEP+5 FIO2 60%. PT RYNE CURRENT VENT SETTINGS WELL. ETT 8.0 AT 23LL SECURE AND PATENT. NO RESP DISTRESS NOTED. SX SMALL WHITE/CLEAR THIN SECRETIONS. VENT PLUGGED INTO RED OUTLET. ALARMS ON, AUDIBLE, AND FUNCTIONING. AMBU BAG AT BEDSIDE. WILL CONTINUE MONITORING PT.
--- NOTE | 2019-02-04 13:02 | NUR ---
NURSE NOTES: Restraints renew at 1pm.
--- NOTE | 2019-02-04 14:37 | NUR ---
NURSE NOTES: Turned and repositioned.Kept clean dry and comfortable
--- NOTE | 2019-02-04 15:30 | NUR ---
NURSE NOTES: Left message to Dr Davey emergency line to follow up with troponin level and episode of tachycardia at 149.Patient sinus rythm at this time will continue to monitor.
--- NOTE | 2019-02-04 15:33 | Pulmonolgy Critical Care Note ---
Critical Care - Asmt/Plan Assessment/Plan: Pulmonary CCM Note HPI Patient is an 88 year old man with h/o COPD who presented complaining of worsening shortness of breath, acute in onset. Patient was placed on BiPAP prior to arrival, subsequently intubated in the ED. Currently on AC Ventilation , sedated in the ICU, seen earlier. Allergies: No Known Allergies Past Medical History: COPD Past Surgical History: none Social History: Reports: smoking All Other Systems: limited Physical Exam Vital Signs Noted General Appearance: Sedated, on ventilator, mild wasting Head: normocephalic, atraumatic Eyes: bilateral eye normal inspection ENT: Dry mucus membranes, other - JVP not elevated Neck: normal inspection, supple Respiratory: respiratory distress, decreased breath sounds, accessory muscle use, wheezing, expiration, inspiration Cardiovascular: HS1, HS2, Normal, RRR, no edema, tachycardia Gastrointestinal: normal inspection, soft, no hernia Genitourinary: no CVA tenderness Musculoskeletal: normal inspection, back normal Neurologic: Sedated, no focal signs, no seizures, grossly normal Psychiatric: NA Skin: normal inspection, normal color, no rash Impression: Respiratory Failure COPD exacerbation Pneumonia Plan: Broad spectrum antibiotics IV Solumedrol HHN IV fluid boluses PRN Supplement K Cardiology Consult Echocardiogram LE Dupplex Urinary catheter PPX Sedation Titrate O2 ABG Labs Test 02/03/19 19:10 02/03/19 20:20 White Blood Count 15.7 K/UL (4.8-10.8) Red Blood Count 4.49 M/UL (4.70-6.10) Hemoglobin 13.6 G/DL (14.2-18.0) Hematocrit 40.8 % (42.0-52.0) Mean Corpuscular Volume 91 FL (80-99) Mean Corpuscular Hemoglobin 30.2 PG (27.0-31.0) Mean Corpuscular Hemoglobin Concent 33.2 G/DL (32.0-36.0) Red Cell Distribution Width 12.1 % (11.6-14.8) Platelet Count 187 K/UL (150-450) Mean Platelet Volume 6.0 FL (6.5-10.1) Neutrophils (%) (Auto) 81.6 % (45.0-75.0) Lymphocytes (%) (Auto) 9.7 % (20.0-45.0) Monocytes (%) (Auto) 8.2 % (1.0-10.0) Eosinophils (%) (Auto) 0.1 % (0.0-3.0) Basophils (%) (Auto) 0.5 % (0.0-2.0) Sodium Level 143 MMOL/L (136-145) Potassium Level 4.0 MMOL/L (3.5-5.1) Chloride Level 106 MMOL/L (98-107) Carbon Dioxide Level 15 MMOL/L (21-32) Anion Gap 22 mmol/L (5-15) Blood Urea Nitrogen 53 mg/dL (7-18) Creatinine 3.3 MG/DL (0.55-1.30) Estimat Glomerular Filtration Rate mL/min (>60) Glucose Level 112 MG/DL (74-106) Calcium Level 10.6 MG/DL (8.5-10.1) Total Bilirubin 1.8 MG/DL (0.2-1.0) Direct Bilirubin 0.9 MG/DL (0.0-0.3) Aspartate Amino Transf (AST/SGOT) 45 U/L (15-37) Alanine Aminotransferase (ALT/SGPT) 20 U/L (12-78) Alkaline Phosphatase 129 U/L (46-116) Creatine Kinase MB 3.5 NG/ML (0.0-3.6) Troponin I 0.120 ng/mL (0.000-0.056) Pro-B-Type Natriuretic Peptide 6053 pg/mL (0-125) Total Protein 10.0 G/DL (6.4-8.2) Albumin 3.4 G/DL (3.4-5.0) Globulin 6.6 g/dL Albumin/Globulin Ratio 0.5 (1.0-2.7) Lipase 75 U/L (73-393) Lactic Acid Level 4.80 mmol/L (0.4-2.0) EKG: Rate: tachycardiac Rhythm: NSR ST Segments: other - Nonspecific ST segment changes Chest X-Ray: no effusion, no pneumothorax, other - ET tube in good position, basilar infiltrates versus atelectasis. Critical Care - Objective Last 24 Hour Vital Signs Date Time Temp Pulse Resp B/P (MAP) Pulse Ox O2 Delivery O2 Flow Rate FiO2 02/04/19 15:00 91 25 151/70 (97) 100 02/04/19 14:00 25 Mechanical Ventilator 02/04/19 14:00 87 25 135/65 (88) 100 02/04/19 13:20 25 Mechanical Ventilator 02/04/19 13:00 84 25 141/61 (87) 100 02/04/19 13:00 25 Mechanical Ventilator 02/04/19 12:55 83 26 35 02/04/19 12:00 97.8 85 25 120/65 (83) 100 02/04/19 12:00 Mechanical Ventilator 02/04/19 12:00 35 02/04/19 12:00 25 Mechanical Ventilator 02/04/19 12:00 86 02/04/19 11:40 88 26 100 Mechanical Ventilator 35 02/04/19 11:30 84 26 100 Mechanical Ventilator 35 02/04/19 11:10 110 26 35 02/04/19 11:00 28 Mechanical Ventilator 02/04/19 11:00 84 28 151/71 (97) 100 02/04/19 10:08 27 Mechanical Ventilator 02/04/19 10:00 84 27 128/68 (88) 100 02/04/19 09:13 90 24 35 02/04/19 09:01 27 Mechanical Ventilator 02/04/19 09:00 86 27 132/75 (94) 100 02/04/19 08:00 85 02/04/19 08:00 27 Mechanical Ventilator 02/04/19 08:00 Mechanical Ventilator 02/04/19 08:00 35 02/04/19 08:00 82 27 134/88 (103) 100 02/04/19 07:06 86 20 100 Mechanical Ventilator 35 02/04/19 07:00 27 Mechanical Ventilator 35 02/04/19 07:00 97.6 86 26 128/68 (88) 100 02/04/19 07:00 86 28 35 02/04/19 06:59 86 28 100 Mechanical Ventilator 35 02/04/19 06:00 87 27 136/72 (93) 100 02/04/19 06:00 27 Mechanical Ventilator 35 02/04/19 05:30 90 32 100 Mechanical Ventilator 35 02/04/19 05:28 88 24 35 02/04/19 05:26 35 02/04/19 05:20 88 30 100 Mechanical Ventilator 35 02/04/19 05:00 89 27 140/74 (96) 100 02/04/19 05:00 27 Mechanical Ventilator 35 02/04/19 04:30 90 27 147/77 (100) 100 02/04/19 04:00 Mechanical Ventilator 02/04/19 04:00 28 Mechanical Ventilator 35 02/04/19 04:00 97.4 97 26 141/77 (98) 100 02/04/19 04:00 35 02/04/19 03:30 92 28 127/67 (87) 100 02/04/19 03:15 35 02/04/19 03:13 93 27 35 02/04/19 03:04 94 02/04/19 03:00 28 Mechanical Ventilator 40 02/04/19 03:00 94 28 129/68 (88) 100 02/04/19 02:15 96 29 126/67 (86) 100 02/04/19 02:00 97 26 141/77 (98) 100 02/04/19 02:00 26 Mechanical Ventilator 80 02/04/19 01:45 99 26 160/83 (108) 100 02/04/19 01:30 101 28 162/75 (104) 100 02/04/19 01:15 98 26 167/78 (107) 100 02/04/19 01:00 100 27 152/89 (110) 100 02/04/19 00:40 101 20 100 02/04/19 00:35 40 02/04/19 00:30 97 27 140/78 (98) 100 02/04/19 00:00 Mechanical Ventilator 02/04/19 00:00 101 25 143/79 (100) 100 02/03/19 23:26 100 02/03/19 23:24 105 02/03/19 23:20 98.5 105 28 161/78 (105) 100 02/03/19 23:20 Mechanical Ventilator 02/03/19 23:00 96.7 106 28 138/73 100 Endotracheal Tube 15.0 100 02/03/19 23:00 103 21 100 02/03/19 22:30 28 Endotracheal Tube 02/03/19 22:09 102 25 100 02/03/19 22:09 102 25 100 Mechanical Ventilator 100 02/03/19 22:07 28 Endotracheal Tube 02/03/19 21:52 28 Endotracheal Tube 02/03/19 21:37 28 Endotracheal Tube 02/03/19 21:22 30 Endotracheal Tube 02/03/19 21:07 30 Endotracheal Tube 02/03/19 21:06 109 19 100 Mechanical Ventilator 100 02/03/19 21:05 117 37 100 Mechanical Ventilator 100 02/03/19 20:53 14 02/03/19 20:52 14 Endotracheal Tube 100 02/03/19 20:40 110 31 100 Mechanical Ventilator 100 02/03/19 20:36 117 37 100 100 02/03/19 19:36 107 23 113/76 98 Ambu-Bag 15.0 02/03/19 19:30 118 19 100 02/03/19 19:10 135 47 Bi-pap 50 02/03/19 19:09 53 47 93 Bi-pap 50 02/03/19 19:07 135 47 Facial 50 02/03/19 19:00 126 47 Bi-pap 100 02/03/19 19:00 100 02/03/19 18:54 95.5 126 47 170/107 Accucheck: 259 Critical Care - Subjective ROS Limited/Unobtainable: Yes Condition: stable EKG Rhythm: Sinus Rhythm Vent Support Breath Rate: 14 Vent Support Mode: AC Vent Tidal Volume: 500 Sputum Amount: Small PEEP: 5.0 PIP: 13 I&O: Intake and Output 02/03/19 02/04/19 19:00 07:00 Intake Total 540 ml Output Total 335 ml Balance 205 ml Intake Oral 0 ml IV Total 540 ml Output Urine Total 335 ml # Bowel Movements 2 ET-Tube: 8.0 ET Position: 23 Gee Macedo MD Feb 04, 2019 15:33
--- NOTE | 2019-02-04 15:45 | NUR ---
NURSE NOTES: Received call back from Dr Davey as sated he will put new orders
--- NOTE | 2019-02-04 16:16 | NUR ---
NURSE NOTES: Patient turned and repositioned.noted with episode of restlessness and agitation.Versed increase to 20mcg, will continue to monitor.Unable to performs mouth care due to agitation.
[2019-02-04] MEDS: Azithromycin 500 MG in D5W 275 ML IV SCH (17:32)
--- NOTE | 2019-02-04 18:10 | NUR ---
NURSE NOTES: ADLs done,mouth care performs,turned and repositioned.Kept clean dry and comfortable
[2019-02-04] MEDS: cefTRIAXone 1 GM in D5W 55 ML IVPB SCH (18:35)
--- NOTE | 2019-02-04 19:17 | NUR ---
HAND-OFF: Report given to MARICEL Peterson.
--- NOTE | 2019-02-04 19:45 | NUR ---
NURSE NOTES: PATIENT LETHARGIC, SEDATED, ON ETT TO VENT AV 14/ TV 500/FIO2 35%/ PEEP 5, O2 SATURATION 100% NOTED, NGT TO RIGHT NARES, INTACT AND PATENT, NPO STATUS, ABDOMEN SOFT, NON TENDER, 12 Fr. F/C INTACT AND PATENT, DARK YELLOW URINE OUTED, PERIPHERAL LINE TO BOTH FORE ARM 20G, INTACT AND PATENT, ONGOING VERSED DRIP 1MG/HR AND D5 NS AT 100ML/HR STATUS, REDNESS TO RIGHT KNEE AREA, SKIN INTACT STATUS, MADE LOWER BED POSITION, HOB 30 DEGREE, PROVIDED CALL LIGHT WITHIN REACH, WILL CONTINUE TO MONITOR.
[2019-02-04] MEDS: Dyna-Hex 2% Top Sol 2oz TOPIC SCH (20:00)
[2019-02-04 21:15] LABS: ANION GAP 14 mmol/L (5-15); BLOOD UREA NITROGEN 42 mg/dL (7-18); CALCIUM 8.3 MG/DL (8.5-10.1); CARBON DIOXIDE 19 MMOL/L (21-32); CHLORIDE 110 MMOL/L (98-107); CREATININE 1.7 MG/DL (0.55-1.30); POTASSIUM 3.4 MMOL/L (3.5-5.1); SODIUM 143 MMOL/L (136-145)
--- NOTE | 2019-02-04 22:00 | NUR ---
NURSE NOTES: REPOSITIONED, ORAL CARE WAS DONE, RELEASED 2 POINT SOFT RESTRAINTS AND REAPPLIED.
--- NOTE | 2019-02-04 23:45 | Consultation ---
DATE OF CONSULTATION: 02/04/2019 CARDIOLOGY CONSULTATION CONSULTING PHYSICIAN: Gee Davey M.D. REQUESTING PHYSICIAN: Olegario Dowling M.D. REASON FOR CONSULTATION: Elevated troponin level. HISTORY OF PRESENT ILLNESS: This is an 88-year-old male. He has history of COPD. He presented to the emergency room with worsening shortness of breath on the evening prior to admission. He was placed on BiPAP support in the emergency room, but failed to improve. Subsequently, he required intubation and mechanical ventilation and concern has been raised over rising troponin levels prompting this consultation. The patient did not have any complaints of chest pressure associated with the events above. PAST MEDICAL HISTORY: COPD, osteoarthritis. ALLERGIES: None. MEDICATIONS: Medications prior to admission, reviewed and reconciled. SOCIAL HISTORY: Current and prior smoker, quantity unclear. No history of alcohol or substance abuse. REVIEW OF SYSTEMS: Not presently obtainable. PHYSICAL EXAMINATION: GENERAL: In the emergency room, his blood pressure was 170/107, heart rate was 126, respiratory rate was 47, temperature was only 95.5. Presently, blood pressure 107/63, pulse 92, respiratory rate 26, afebrile at 97.7. HEENT: Temporal wasting. [place] conjunctivae. Orally intubated. LUNGS: Bilateral breath sounds with few wheezes. HEART: Regular rhythm and rate. Normal S1, S2 with a fourth heart sound. ABDOMEN: Soft, nontender. EXTREMITIES: No edema. Distal pulses palpable. No cyanosis at this time. LABORATORY DATA: ABG in the emergency room, pH 7.37, pCO2 of 27, pO2 of 494 following intubation. White count initially 15.7, now 13.6. Hemoglobin 12.6. Chemistry panel reveals sodium 143, potassium 4, bicarbonate 15, BUN 53, creatinine 3.3. Troponin #1 is 0.12. Troponin #2 is 0.33. Pro-natriuretic peptide is 6000. Lactic acid initially 4.8, now is 1.6. Potassium today is 2.9. IMPRESSION: 1. Acute respiratory failure. 2. COPD exacerbation. 3. Paroxysmal bronchospasm. 4. Lactic acidosis, resolved. 5. Acute myocardial ischemia and possible [id number] infarction. 6. Acute renal failure. 7. Hypovolemia and dehydration. 8. Leukocytosis. 9. Condition critical. 10. Prognosis guarded. PLAN: 1. ICU care. 2. Ventilator support. 3. Inhaled bronchodilators. 4. Intravenous steroids. 5. Saline hydration. 6. Monitor chemistry panel. 7. Serial troponin levels. 8. Empiric antimicrobials. 9. DVT and stress ulcer prophylaxis. 10. No beta-blockers in view of acute bronchospasm. 11. Anti-platelet therapy with aspirin. 12. Cardizem for sustained atrial arrhythmias only. 13. Echocardiogram requested. 14. Potassium replacement initiated. 15. Magnesium level to be checked. Gee Davey M.D. DR: Paulo JOB#: [id number] CC:
[2019-02-05] VITALS (48 sets, daily range): BP systolic 116–149; BP diastolic 59–83
--- NOTE | 2019-02-05 | NUR ---
NURSE NOTES: PATIENT ON VERSED DRIP 1MG/HR, KEPT RASS -1 ORDERED, WILL CONTINUE TO MONITOR.
[2019-02-05] MEDS: Albuterol/Ipratropium 3ml neb HHN SCH ×6 (02:10→23:33)
--- NOTE | 2019-02-05 02:10 | NUR ---
NURSE NOTES: PATIENT DROWSY STATUS, OPEN EYES TO NAME, ORAL CARE WAS DONE, WILL CONTINUE PLAN OF CARE.
--- NOTE | 2019-02-05 04:20 | NUR ---
NURSE NOTES: MORNING CARE AND ORAL CARE WAS DONE, NO BOWEL MOVEMENT STATUS.
[2019-02-05] MEDS: D5NS 1,000 ML IV SCH ×2 (05:00→12:36)
[2019-02-05 05:40] LABS: HEMATOCRIT 34.4 % (42.0-52.0); HEMOGLOBIN 11.5 G/DL (14.2-18.0); MEAN CORPUSCULAR VOLUME 93 FL (80-99); PLATELET COUNT 153 K/UL (150-450); RED BLOOD COUNT 3.71 M/UL (4.70-6.10); RED CELL DISTRIBUTION WIDTH 12.4 % (11.6-14.8); WHITE BLOOD COUNT 18.9 K/UL (4.8-10.8)
[2019-02-05] MEDS: Solu-MEDROL 125mg Inj IVP SCH ×3 (05:48→22:07)
[2019-02-05] MEDS: NovoLOG Insulin Flexpen SUBQ SCH ×4 (05:49→20:50)
[2019-02-05 06:22] LABS: ALANINE AMINOTRANSFERASE 26 U/L (12-78); ALBUMIN 2.2 G/DL (3.4-5.0); ALBUMIN/GLOBULIN RATIO 0.4 (1.0-2.7); ALKALINE PHOSPHATASE 94 U/L (46-116); ANION GAP 14 mmol/L (5-15); ASPARTATE AMINO TRANSFERASE 59 U/L (15-37); BILIRUBIN,TOTAL 0.5 MG/DL (0.2-1.0); BLOOD UREA NITROGEN 40 mg/dL (7-18); CALCIUM 8.8 MG/DL (8.5-10.1); CARBON DIOXIDE 19 MMOL/L (21-32); CHLORIDE 111 MMOL/L (98-107); CHOLESTEROL 118 MG/DL (< 200); CREATININE 1.5 MG/DL (0.55-1.30); HDL CHOLESTEROL 24 MG/DL (40-60); POTASSIUM 3.2 MMOL/L (3.5-5.1); SODIUM 144 MMOL/L (136-145); TRIGLYCERIDES 134 MG/DL (30-150)
--- NOTE | 2019-02-05 06:30 | NUR ---
NURSE NOTES: NO ACUTE DISTRESS NOTED AT THIS SHIFT.
--- NOTE | 2019-02-05 06:55 | NUR ---
RESPIRATORY NOTE: Patient received mechanically ventilated on PB 840 with current ordered vent settings. Patient is orally intubated with ET Tube size 8.0 with 23cm at the lip line that is secured with a anchor fast. Breath sounds are clear throughout. Scant amount of thick, white and yellow secretions were suctioned via inline suctioned system without incident. There is an ambu bag available at the bedside and the vent is connected to a red outlet. The vent alarms are functional and audible. Will continue to monitor.
--- NOTE | 2019-02-05 07:35 | NUR ---
HAND-OFF: Report given to MARICEL YI.
--- NOTE | 2019-02-05 07:41 | NUR ---
NURSE NOTES: Report received from MARICEL Eason. Observed patient in bed sleeping. Arousable by shaking but drowsy. ET tube on right side size of 8.0 and lip line at 23cm. On ventilator with previous setting and tolerated well with no distress noted. IVF is running at prescribed rate. NGT noted on right nares intact and patent. F/C intact and draining well. Restraint noted on bilateral wrists with no skin breakdown noted. Bed in lowest position. Call light within reach. Will continue to monitor.
[2019-02-05] MEDS ORDERED: Succinylcholine 20mg/ml 10ml vial ONE (08:41)
[2019-02-05] MEDS ORDERED: Etomidate 40mg/20ml Inj IV ONE (08:41)
[2019-02-05] MEDS: Aspirin Baby 81mg NG SCH (08:41)
[2019-02-05] MEDS: Heparin 5000 units/ml inj SUBQ SCH ×2 (08:42→20:51)
[2019-02-05] MEDS ORDERED: D5NS 1000ml IV ONE ×2 (08:42→08:43)
[2019-02-05] MEDS ORDERED: NS 275ml ONE ×2 (08:42→08:43)
[2019-02-05] MEDS ORDERED: Tubing IV Secondary IV ONE (08:43)
--- NOTE | 2019-02-05 10:01 | NUR ---
NURSE NOTES: No distress noted. In bed sleeping. Arousable by shaking. Vitals are stable. Turn and reposition the patient.
--- NOTE | 2019-02-05 12:00 | NUR ---
NURSE NOTES: Seen by Dr. Macedo with new order of weaning determination from tomorrow (02/06/19). Order carried out. Vitals are stable.
[2019-02-05 12:42] LABS: PHOSPHORUS 2.2 MG/DL (2.5-4.9)
--- NOTE | 2019-02-05 12:46 | NUR ---
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 COPD EXACERBATION . PNA VS: BP 121/59, P 87, T 97.4, RR 32 SpO2 100 on VENT FiO2 35 WBC 18.9, RBC 3.71, H/H 11.5/34.4, BUN 31, TROPONIN I 0.116 IS:ZOSYN 110 ml IVPB MAGNESIUM SULFATE 100ml IVPB POTASSIUM CHLORIDE 100ml IVPB D5/NS x1L IV CEFTRIAXONE 55ml IVPB AZITHROMYCIN 275ML IV NOVOLOG SUBQ SOLU-MEDROL 80mg IVP ALBUTEROL 3ml HHN PROTONIX 40mg ICU STATUS
--- NOTE | 2019-02-05 13:18 | Pulmonolgy Critical Care Note ---
Critical Care - Asmt/Plan Assessment/Plan: Pulmonary CCM Note HPI Patient is an 88 year old man with h/o COPD who presented complaining of worsening shortness of breath, acute in onset. Patient was placed on BiPAP prior to arrival, subsequently intubated in the ED. Currently on AC Ventilation , sedated in the ICU Improving Pulmonary status, Cardiology following Allergies: No Known Allergies Past Medical History: COPD Past Surgical History: none Social History: Reports: smoking All Other Systems: limited Physical Exam Vital Signs Noted General Appearance: Sedated, on ventilator, mild wasting Head: normocephalic, atraumatic Eyes: bilateral eye normal inspection ENT: Dry mucus membranes, other - JVP not elevated Neck: normal inspection, supple Respiratory: respiratory distress, decreased breath sounds, accessory muscle use, wheezing, expiration, inspiration Cardiovascular: HS1, HS2, Normal, RRR, no edema, tachycardia Gastrointestinal: normal inspection, soft, no hernia Genitourinary: no CVA tenderness Musculoskeletal: normal inspection, back normal Neurologic: Sedated, no focal signs, no seizures, grossly normal Psychiatric: NA Skin: normal inspection, normal color, no rash Impression: Respiratory Failure COPD exacerbation Pneumonia Plan: Broad spectrum antibiotics IV Solumedrol HHN IV fluid boluses PRN Supplement K, check Mg/Phos Cardiology Consult Echocardiogram LE Dupplex Urinary catheter PPX Sedation Titrate O2 ABG Labs Test 02/03/19 19:10 02/03/19 20:20 White Blood Count 15.7 K/UL (4.8-10.8) Red Blood Count 4.49 M/UL (4.70-6.10) Hemoglobin 13.6 G/DL (14.2-18.0) Hematocrit 40.8 % (42.0-52.0) Mean Corpuscular Volume 91 FL (80-99) Mean Corpuscular Hemoglobin 30.2 PG (27.0-31.0) Mean Corpuscular Hemoglobin Concent 33.2 G/DL (32.0-36.0) Red Cell Distribution Width 12.1 % (11.6-14.8) Platelet Count 187 K/UL (150-450) Mean Platelet Volume 6.0 FL (6.5-10.1) Neutrophils (%) (Auto) 81.6 % (45.0-75.0) Lymphocytes (%) (Auto) 9.7 % (20.0-45.0) Monocytes (%) (Auto) 8.2 % (1.0-10.0) Eosinophils (%) (Auto) 0.1 % (0.0-3.0) Basophils (%) (Auto) 0.5 % (0.0-2.0) Sodium Level 143 MMOL/L (136-145) Potassium Level 4.0 MMOL/L (3.5-5.1) Chloride Level 106 MMOL/L (98-107) Carbon Dioxide Level 15 MMOL/L (21-32) Anion Gap 22 mmol/L (5-15) Blood Urea Nitrogen 53 mg/dL (7-18) Creatinine 3.3 MG/DL (0.55-1.30) Estimat Glomerular Filtration Rate mL/min (>60) Glucose Level 112 MG/DL (74-106) Calcium Level 10.6 MG/DL (8.5-10.1) Total Bilirubin 1.8 MG/DL (0.2-1.0) Direct Bilirubin 0.9 MG/DL (0.0-0.3) Aspartate Amino Transf (AST/SGOT) 45 U/L (15-37) Alanine Aminotransferase (ALT/SGPT) 20 U/L (12-78) Alkaline Phosphatase 129 U/L (46-116) Creatine Kinase MB 3.5 NG/ML (0.0-3.6) Troponin I 0.120 ng/mL (0.000-0.056) Pro-B-Type Natriuretic Peptide 6053 pg/mL (0-125) Total Protein 10.0 G/DL (6.4-8.2) Albumin 3.4 G/DL (3.4-5.0) Globulin 6.6 g/dL Albumin/Globulin Ratio 0.5 (1.0-2.7) Lipase 75 U/L (73-393) Lactic Acid Level 4.80 mmol/L (0.4-2.0) EKG: Rate: tachycardiac Rhythm: NSR ST Segments: other - Nonspecific ST segment changes Chest X-Ray: no effusion, no pneumothorax, other - ET tube in good position, basilar infiltrates versus atelectasis. Critical Care - Objective Last 24 Hour Vital Signs Date Time Temp Pulse Resp B/P (MAP) Pulse Ox O2 Delivery O2 Flow Rate FiO2 4/28/19 13:07 86 30 35 02/05/19 13:00 23 Mechanical Ventilator 35 02/05/19 13:00 84 23 147/70 (95) 100 02/05/19 12:30 79 18 136/67 (90) 100 02/05/19 12:00 22 Mechanical Ventilator 35 02/05/19 12:00 80 02/05/19 12:00 35 02/05/19 12:00 Mechanical Ventilator 02/05/19 12:00 97.5 78 22 137/66 (89) 100 02/05/19 11:30 80 25 139/67 (91) 100 02/05/19 11:15 85 26 100 Mechanical Ventilator 35 02/05/19 11:05 83 28 100 Mechanical Ventilator 35 02/05/19 11:00 29 Mechanical Ventilator 35 02/05/19 11:00 84 29 139/83 (101) 100 02/05/19 10:56 78 26 35 02/05/19 10:30 76 22 142/67 (92) 100 02/05/19 10:00 82 15 145/68 (93) 100 02/05/19 10:00 15 Mechanical Ventilator 35 02/05/19 09:30 81 26 142/69 (93) 100 02/05/19 09:00 23 Mechanical Ventilator 35 02/05/19 09:00 78 23 140/67 (91) 100 02/05/19 09:00 82 34 35 02/05/19 08:30 80 29 131/65 (87) 100 02/05/19 08:00 77 02/05/19 08:00 35 02/05/19 08:00 21 Mechanical Ventilator 35 02/05/19 08:00 Mechanical Ventilator 02/05/19 08:00 97.4 77 21 134/66 (88) 100 02/05/19 07:30 78 21 124/66 (85) 100 02/05/19 07:01 87 22 100 Mechanical Ventilator 35 02/05/19 07:00 78 22 149/67 (94) 100 02/05/19 07:00 22 Mechanical Ventilator 35 02/05/19 06:51 77 26 100 Mechanical Ventilator 35 02/05/19 06:50 77 26 35 02/05/19 06:30 78 21 130/67 (88) 100 02/05/19 06:00 22 Mechanical Ventilator 35 02/05/19 06:00 82 22 144/72 (96) 100 02/05/19 05:30 79 21 143/68 (93) 100 02/05/19 05:28 79 24 35 02/05/19 05:00 83 27 138/81 (100) 100 02/05/19 05:00 27 Mechanical Ventilator 35 02/05/19 04:30 83 02/05/19 04:30 83 28 139/67 (91) 100 02/05/19 04:00 35 02/05/19 04:00 16 Mechanical Ventilator 35 02/05/19 04:00 97.3 85 24 131/83 (99) 100 02/05/19 04:00 Mechanical Ventilator 02/05/19 03:30 80 23 124/66 (85) 100 02/05/19 03:00 16 Mechanical Ventilator 35 02/05/19 03:00 80 23 136/65 (88) 100 02/05/19 02:30 80 27 135/64 (87) 100 02/05/19 02:25 85 26 100 Mechanical Ventilator 35 02/05/19 02:11 77 25 100 Mechanical Ventilator 35 02/05/19 02:10 77 25 35 02/05/19 02:00 80 22 123/71 (88) 100 02/05/19 02:00 17 Mechanical Ventilator 35 02/05/19 01:30 79 24 132/65 (87) 100 02/05/19 01:15 78 24 35 02/05/19 01:00 17 Mechanical Ventilator 35 02/05/19 01:00 79 24 131/65 (87) 100 02/05/19 00:30 79 24 116/65 (82) 100 02/05/19 00:00 76 02/05/19 00:00 Mechanical Ventilator 02/05/19 00:00 24 Mechanical Ventilator 35 02/05/19 00:00 35 02/05/19 00:00 97.3 76 24 124/63 (83) 100 02/04/19 23:30 77 26 143/73 (96) 100 02/04/19 23:28 80 26 100 Mechanical Ventilator 35 02/04/19 23:21 76 27 35 02/04/19 23:21 76 27 100 Mechanical Ventilator 35 02/04/19 23:00 27 Mechanical Ventilator 35 02/04/19 23:00 78 27 134/61 (85) 100 02/04/19 22:30 77 24 124/63 (83) 100 02/04/19 22:00 24 Mechanical Ventilator 35 02/04/19 22:00 78 24 137/67 (90) 100 02/04/19 21:11 78 24 35 02/04/19 21:00 23 Mechanical Ventilator 35 02/04/19 21:00 78 23 123/68 (86) 100 02/04/19 20:07 24 Mechanical Ventilator 35 02/04/19 20:01 88 26 100 Mechanical Ventilator 35 02/04/19 20:00 35 02/04/19 20:00 Mechanical Ventilator 02/04/19 20:00 97.4 82 24 130/64 (86) 100 02/04/19 19:49 80 24 100 Mechanical Ventilator 35 02/04/19 19:49 80 24 35 02/04/19 19:30 79 02/04/19 19:00 24 Mechanical Ventilator 02/04/19 19:00 81 24 123/69 (87) 100 02/04/19 18:00 25 Mechanical Ventilator 02/04/19 18:00 86 25 129/69 (89) 100 02/04/19 17:25 90 28 35 02/04/19 17:00 90 28 107/63 (78) 100 02/04/19 17:00 24 Mechanical Ventilator 02/04/19 16:00 97.7 92 27 107/63 (78) 100 02/04/19 16:00 Mechanical Ventilator 02/04/19 16:00 26 Mechanical Ventilator 25.0 02/04/19 16:00 93 02/04/19 16:00 35 02/04/19 15:25 Mechanical Ventilator 35 02/04/19 15:25 151 34 35 02/04/19 15:25 Mechanical Ventilator 35 02/04/19 15:00 25 Mechanical Ventilator 02/04/19 15:00 91 25 151/70 (97) 100 02/04/19 14:00 25 Mechanical Ventilator 02/04/19 14:00 87 25 135/65 (88) 100 02/04/19 13:20 25 Mechanical Ventilator Micro: Microbiology Date/Time Source Procedure Growth Status 02/03/19 19:10 Blood Blood Culture - Preliminary NO GROWTH AFTER 24 HOURS Resulted 02/03/19 18:55 Blood Blood Culture - Preliminary NO GROWTH AFTER 24 HOURS Resulted 02/04/19 01:50 Sputum Gram Stain - Final Resulted 02/04/19 01:50 Sputum Culture - Preliminary Gram Negative Eleno Usual Upper Respiratory Hina Resulted Accucheck: 161 Critical Care - Subjective ROS Limited/Unobtainable: No Condition: improving IV Access: PICC, peripheral EKG Rhythm: Sinus Rhythm FI02: 35 Vent Support Breath Rate: 14 Vent Support Mode: AC Vent Tidal Volume: 500 Sputum Amount: Small PEEP: 5.0 PIP: 13 I&O: Intake and Output 02/04/19 02/05/19 19:00 07:00 Intake Total 1708 ml 1224 ml Output Total 1180 ml 770 ml Balance 528 ml 454 ml IV Total 1708 ml 1224 ml Output Urine Total 1180 ml 770 ml ET-Tube: 8.0 ET Position: 23 Gee Macedo MD Feb 05, 2019 13:18
--- NOTE | 2019-02-05 14:00 | NUR ---
NURSE NOTES: Turn and reposition the patient. No distress noted. Stable condition.
--- NOTE | 2019-02-05 16:27 | NUR ---
NURSE NOTES: Patient is still drowsy. Arousable by voice and shaking. No distress noted. Stable condition. Turn and reposition the patient.
[2019-02-05] MEDS: Azithromycin 500 MG in D5W 275 ML IV SCH (17:59)
--- NOTE | 2019-02-05 18:00 | NUR ---
NURSE NOTES: Turn and reposition the patient. No distress noted with ventilator. Stable condition.
[2019-02-05 18:26] LABS: ANION GAP 11 mmol/L (5-15); BLOOD UREA NITROGEN 31 mg/dL (7-18); CALCIUM 8.7 MG/DL (8.5-10.1); CARBON DIOXIDE 20 MMOL/L (21-32); CHLORIDE 113 MMOL/L (98-107); CREATININE 1.2 MG/DL (0.55-1.30); PHOSPHORUS 1.7 MG/DL (2.5-4.9); POTASSIUM 3.6 MMOL/L (3.5-5.1); SODIUM 144 MMOL/L (136-145)
[2019-02-05] MEDS: cefTRIAXone 1 GM in D5W 55 ML IVPB SCH (19:00)
--- NOTE | 2019-02-05 19:17 | NUR ---
RESPIRATORY NOTE: Received pt. on 840 vent. Vent settings are: A/C rate of 14, Vt 500, FI02 35%, PEEP +5. No respiratory distress noted, pt. sP02 @ 100%. Ambu bag @ BS. Vent plugged on red outlet. Will continue to monitor pt.
--- NOTE | 2019-02-05 19:28 | NUR ---
HAND-OFF: Report given to MARICEL Eason. Stable condition.
--- NOTE | 2019-02-05 19:45 | NUR ---
NURSE NOTES: PATIENT RESPONSE TO NAME, DROWSY STATUS, ON ETT TO VENT AV 14/ TV 500/FIO2 35%/ PEEP 5, O2 SATURATION 100% NOTED, NGT TO RIGHT NARES, INTACT AND PATENT, NPO STATUS, ABDOMEN SOFT AND NON TENDER, HYPOACTIVE BOWEL SOUND TO 4 QUADRANTS, 12 Fr. F/C INTACT AND PATENT, DARK YELLOW URINE OUTED, PERIPHERAL LINE TO BOTH FORE ARM 20G, INTACT AND PATENT, ONGOING VERSED DRIP 1MG/HR AND D5 NS AT 80ML/HR STATUS, KEPT 2 POINT SOFT RESTRAINTS FOR SAFETY ORDERED, MADE LOWER BED POSITION, HOB 30 DEGREE, ON BED ALARM, PROVIDED CALL LIGHT WITHIN REACH, WILL CONTINUE TO MONITOR.
[2019-02-05] MEDS: Dyna-Hex 2% Top Sol 2oz TOPIC SCH (19:57)
--- NOTE | 2019-02-05 21:40 | NUR ---
NURSE NOTES: DR. CHOPRA MADE NEW ORDER, CARRIED OUT.
[2019-02-05] MEDS: Piperacillin/Tazobactam 3.375 GM in NS 110 ML IVPB SCH (23:06)
--- NOTE | 2019-02-05 23:57 | NUR ---
NURSE NOTES: ONGOING VERSED DRIP 2MG/HR VIA PERIPHERAL LINE, KEPT RASS -1 AT THIS TIME, WILL CONTINUE TO MONITOR.
[2019-02-06] VITALS (32 sets, daily range): BP systolic 115–144; BP diastolic 55–80
[2019-02-06] MEDS: Pantoprazole Inj IVP SCH (00:19)
[2019-02-06] MEDS: D5NS 1,000 ML IV SCH ×2 (00:20→13:03)
--- NOTE | 2019-02-06 00:30 | Progress Note ---
DATE: 02/05/2019 CARDIOLOGY PROGRESS NOTE SUBJECTIVE: The patient remains orally intubated and mechanically ventilated. Monitored rhythm is sinus. The patient remains sedated. OBJECTIVE: VITAL SIGNS: Blood pressure 140/68, pulse 83, respirations 19, and afebrile. HEENT: Orally intubated. LUNGS: Bilateral breath sounds. Rhonchi. Few wheezes. HEART: Regular rhythm and rate. Normal S1, S2 with a fourth heart sound. ABDOMEN: Soft. EXTREMITIES: No edema. LABORATORY AND DIAGNOSTIC DATA: Sputum reveals gram-negative rods. White count 18.9 and hemoglobin 11.5. Sodium 144, potassium 3.6, bicarbonate 20, BUN 31, and creatinine 1.2. Magnesium 1.5 and phosphorus 1.7. Troponin is down to 0.116. LDL cholesterol 52. IMPRESSION: 1. Respiratory failure. 2. Acute myocardial ischemia. 3. Hypomagnesemia. 4. Hypophosphatemia. 5. Chronic obstructive pulmonary disease exacerbation. 6. Resolved lactic acidosis. 7. Gram-negative pneumonia. PLAN: 1. Ventilator support. Weaning per sap portal developer. 2. Intravenous antimicrobials spectrum will be broadened. 3. Intravenous magnesium replacement. 4. Phosphorus replacement through feeding tube. 5. DVT prophylaxis. 6. Anti-platelet therapy. 7. No beta-blockers in this clinical setting due to bronchospasm. Gee Davey M.D. DR: RENETTA JOB#: [id number] CC:
--- NOTE | 2019-02-06 00:38 | NUR ---
NURSE NOTES: CALLED BACK FROM DR. GREENE, RECEIVED NEW ORDER AND CARRIED OUT.
[2019-02-06] MEDS ORDERED: Potassium Phosphate 20 MM in NS 275 ML IV ONE (00:45)
[2019-02-06] MEDS ORDERED: Potassium Phosphate 15 MM in NS 275 ML IV ONE (01:00)
--- NOTE | 2019-02-06 02:00 | NUR ---
NURSE NOTES: KEPT RASS SCORE -1 AT THIS TIME, NO PAIN OR DISTRESS NOTED.
--- NOTE | 2019-02-06 03:40 | NUR ---
NURSE NOTES: MORNING CARE AND ORAL CARE WAS DONE, NO BOWEL MOVEMENT NOTED.
[2019-02-06] MEDS: Albuterol/Ipratropium 3ml neb HHN SCH ×6 (03:46→23:13)
[2019-02-06 05:30] LABS: HEMATOCRIT 33.7 % (42.0-52.0); HEMOGLOBIN 11.1 G/DL (14.2-18.0); MEAN CORPUSCULAR VOLUME 94 FL (80-99); PLATELET COUNT 144 K/UL (150-450); RED BLOOD COUNT 3.58 M/UL (4.70-6.10); RED CELL DISTRIBUTION WIDTH 13.2 % (11.6-14.8); WHITE BLOOD COUNT 20.7 K/UL (4.8-10.8)
--- NOTE | 2019-02-06 05:30 | NUR ---
NURSE NOTES: NO PAIN OR DISTRESS NOTED AT THIS SHIFT.
[2019-02-06] MEDS: Solu-MEDROL 125mg Inj IVP SCH ×3 (05:37→20:35)
[2019-02-06] MEDS: Piperacillin/Tazobactam 3.375 GM in NS 110 ML IVPB SCH (05:37)
[2019-02-06 05:52] LABS: ANION GAP 13 mmol/L (5-15); BLOOD UREA NITROGEN 29 mg/dL (7-18); CALCIUM 8.8 MG/DL (8.5-10.1); CARBON DIOXIDE 18 MMOL/L (21-32); CHLORIDE 112 MMOL/L (98-107); CREATININE 1.3 MG/DL (0.55-1.30); PHOSPHORUS 2.6 MG/DL (2.5-4.9); POTASSIUM 3.6 MMOL/L (3.5-5.1); SODIUM 143 MMOL/L (136-145)
--- NOTE | 2019-02-06 06:00 | NUR ---
NURSE NOTES: RELEASED RESTRAINTS AND REAPPLIED FOR SAFETY, WILL CONTINUE PLAN OF CARE.
[2019-02-06] MEDS: NovoLOG Insulin Flexpen SUBQ SCH ×4 (06:07→20:36)
--- NOTE | 2019-02-06 07:04 | NUR ---
HAND-OFF: Report given to MARICEL ZEPEDA.
--- NOTE | 2019-02-06 07:30 | NUR ---
RESPIRATORY NOTE: Received pt. on 840 vent. Vent settings: A/C rate of 14, Vt 500, FI02 35%, PEEP +5. No respiratory distress noted, vitals and 02Sat wnl/ >92% @ 100%. Ambu bag @ bedside. Vent plugged on red outlet. Will continue to monitor pt.
--- NOTE | 2019-02-06 07:36 | NUR ---
NURSE NOTES: Report received from Jenaro RN. Pt lethargic but arousable, alert and oriented x 2-3, confused and forgetful at times. Pt connected to night monitor, SR. Pt orally intubated ETT 8.0, 23 cm lipline, AC 14, TV 500, 35% FIO2, PEEP 5. NGT noted and intact. Pt kept NPO for now. Sanon noted and intact draining clear, yellow urine to gravity. RFA 20 G with D5NS @ 80 cc/hr. LFA 20G with versed running at 1 mg/hr. Safety measures in place with bed locked and in lowest position, side rails x3 up and bed alarm on. Will continue to monitor and continue plan of care.
--- NOTE | 2019-02-06 07:43 | Pulmonology Progress Note ---
Assessment/Plan Assessment/Plan respiratory failure COPD leukocytosis likely due to steroids WILTON PLAN wean extubate reduced steroids feeds avoid positive fluid balance impression, plan, and exam edited and reviewed in detail care discussed with RN Subjective ROS Limited/Unobtainable: Yes Allergies: Coded Allergies: No Known Allergies (Unverified , 02/10/18) UNABLE TO ASSESS (Unverified , 02/03/19) Subjective care noted and reviewed on vent Objective Last 24 Hour Vital Signs Date Time Temp Pulse Resp B/P (MAP) Pulse Ox O2 Delivery O2 Flow Rate FiO2 02/06/19 07:30 75 16 127/67 (87) 100 02/06/19 07:00 74 17 137/67 (90) 100 02/06/19 07:00 17 Mechanical Ventilator 35 02/06/19 06:30 80 17 02/06/19 06:30 77 18 138/68 (91) 100 02/06/19 06:00 79 16 136/74 (94) 100 02/06/19 06:00 17 Mechanical Ventilator 35 02/06/19 05:30 79 18 138/68 (91) 100 02/06/19 05:16 78 23 35 02/06/19 05:00 78 17 126/66 (86) 100 02/06/19 05:00 20 Mechanical Ventilator 35 02/06/19 04:30 80 18 136/69 (91) 100 02/06/19 04:00 Mechanical Ventilator 02/06/19 04:00 20 Mechanical Ventilator 35 02/06/19 04:00 97.3 82 19 138/69 (92) 100 02/06/19 04:00 35 02/06/19 03:56 86 22 100 Mechanical Ventilator 35 02/06/19 03:46 86 24 35 02/06/19 03:46 86 22 100 Mechanical Ventilator 35 02/06/19 03:40 85 02/06/19 03:30 90 28 139/64 (89) 100 02/06/19 03:00 19 Mechanical Ventilator 35 02/06/19 03:00 83 26 122/64 (83) 100 02/06/19 02:30 77 19 123/60 (81) 100 02/06/19 02:00 77 19 121/61 (81) 100 02/06/19 02:00 20 Mechanical Ventilator 35 02/06/19 01:30 78 20 121/58 (79) 100 02/06/19 01:14 84 22 35 02/06/19 01:00 80 17 128/64 (85) 100 02/06/19 01:00 20 Mechanical Ventilator 35 02/06/19 00:30 83 25 130/68 (88) 100 02/06/19 00:00 20 Mechanical Ventilator 35 02/06/19 00:00 97.5 76 19 115/55 (75) 100 02/06/19 00:00 Mechanical Ventilator 02/05/19 23:47 75 02/05/19 23:44 80 22 100 Mechanical Ventilator 35 02/05/19 23:34 78 22 100 Mechanical Ventilator 35 02/05/19 23:34 78 22 35 02/05/19 23:30 76 20 121/59 (79) 100 02/05/19 23:00 80 21 119/62 (81) 100 02/05/19 23:00 20 Mechanical Ventilator 35 02/05/19 22:30 80 21 130/65 (86) 100 02/05/19 22:15 32 Mechanical Ventilator 35 02/05/19 22:00 85 29 130/66 (87) 100 02/05/19 22:00 24 35 02/05/19 21:30 86 26 125/62 (83) 100 02/05/19 21:30 85 28 35 02/05/19 21:00 85 24 126/67 (86) 100 02/05/19 21:00 30 Mechanical Ventilator 35 02/05/19 20:30 87 30 132/74 (93) 100 02/05/19 20:00 35 02/05/19 20:00 97.4 83 20 134/78 (96) 100 02/05/19 20:00 Mechanical Ventilator 02/05/19 20:00 83 20 02/05/19 20:00 20 Mechanical Ventilator 35 02/05/19 19:30 83 19 140/68 (92) 100 02/05/19 19:28 84 02/05/19 19:23 85 24 100 Mechanical Ventilator 35 02/05/19 19:19 84 24 35 02/05/19 19:15 80 22 100 Mechanical Ventilator 35 02/05/19 19:00 84 24 135/68 (90) 100 02/05/19 19:00 20 Mechanical Ventilator 35 02/05/19 18:30 84 22 142/73 (96) 100 02/05/19 18:00 20 Mechanical Ventilator 35 02/05/19 18:00 80 20 142/70 (94) 100 02/05/19 17:30 82 28 140/69 (92) 100 02/05/19 17:00 18 Mechanical Ventilator 35 02/05/19 17:00 80 18 134/66 (88) 100 02/05/19 16:56 82 19 35 02/05/19 16:30 81 18 136/67 (90) 100 02/05/19 16:00 Mechanical Ventilator 02/05/19 16:00 97.5 83 20 144/68 (93) 100 02/05/19 16:00 20 Mechanical Ventilator 35 02/05/19 16:00 35 02/05/19 16:00 80 02/05/19 15:30 83 18 138/71 (93) 100 02/05/19 15:28 78 15 100 Mechanical Ventilator 35 02/05/19 15:19 80 25 100 Mechanical Ventilator 35 02/05/19 15:17 81 25 35 02/05/19 15:00 84 21 120/83 (95) 100 02/05/19 15:00 21 Mechanical Ventilator 35 02/05/19 14:30 82 27 141/68 (92) 100 02/05/19 14:00 26 Mechanical Ventilator 35 02/05/19 14:00 80 26 148/67 (94) 100 02/05/19 13:30 79 22 148/70 (96) 100 02/05/19 13:07 86 30 35 02/05/19 13:00 23 Mechanical Ventilator 35 02/05/19 13:00 84 23 147/70 (95) 100 02/05/19 12:30 79 18 136/67 (90) 100 02/05/19 12:00 22 Mechanical Ventilator 35 02/05/19 12:00 80 02/05/19 12:00 35 02/05/19 12:00 Mechanical Ventilator 02/05/19 12:00 97.5 78 22 137/66 (89) 100 02/05/19 11:30 80 25 139/67 (91) 100 02/05/19 11:15 85 26 100 Mechanical Ventilator 35 02/05/19 11:05 83 28 100 Mechanical Ventilator 35 02/05/19 11:00 29 Mechanical Ventilator 35 02/05/19 11:00 84 29 139/83 (101) 100 02/05/19 10:56 78 26 35 02/05/19 10:30 76 22 142/67 (92) 100 02/05/19 10:00 82 15 145/68 (93) 100 02/05/19 10:00 15 Mechanical Ventilator 35 02/05/19 09:30 81 26 142/69 (93) 100 02/05/19 09:00 23 Mechanical Ventilator 35 02/05/19 09:00 78 23 140/67 (91) 100 02/05/19 09:00 82 34 35 02/05/19 08:30 80 29 131/65 (87) 100 02/05/19 08:00 77 02/05/19 08:00 35 02/05/19 08:00 21 Mechanical Ventilator 35 02/05/19 08:00 Mechanical Ventilator 02/05/19 08:00 97.4 77 21 134/66 (88) 100 Intake and Output 02/05/19 02/06/19 18:59 06:59 Intake Total 1679 ml 1480.335 ml Output Total 585 ml 645 ml Balance 1094 ml 835.335 ml IV Total 1679 ml 1480.335 ml Output Urine Total 585 ml 645 ml Objective WDWN NAD orally intubated reduced breath sounds bilaterally without rhonchi or wheeze [id number] without MRG NABS nontender no HSM no CCE nonfocal Microbiology Date/Time Source Procedure Growth Status 02/03/19 19:10 Blood Blood Culture - Preliminary NO GROWTH AFTER 48 HOURS Resulted 02/03/19 18:55 Blood Blood Culture - Preliminary NO GROWTH AFTER 48 HOURS Resulted 02/05/19 13:05 Sputum Gram Stain - Final Resulted 02/05/19 13:05 Sputum Sputum Culture Pending Resulted 02/04/19 01:50 Sputum Gram Stain - Final Resulted 02/04/19 01:50 Sputum Culture - Preliminary Gram Negative Eleno Usual Upper Respiratory Hina Resulted 02/03/19 22:38 Nasal Nares MRSA Culture - Final NO METHICILLIN RESISTANT STAPH AUREUS... Complete Laboratory Tests 02/05/19 17:40: Sodium Level 144, Potassium Level 3.6, Chloride Level 113H, Carbon Dioxide Level 20L, Anion Gap 11, Blood Urea Nitrogen 31H, Creatinine 1.2, Estimat Glomerular Filtration Rate , Glucose Level 144H, Calcium Level 8.7, Phosphorus Level 1.7L, Magnesium Level 1.5L 02/06/19 04:30: Sodium Level 143, Potassium Level 3.6, Chloride Level 112H, Carbon Dioxide Level 18L, Anion Gap 13, Blood Urea Nitrogen 29H, Creatinine 1.3, Estimat Glomerular Filtration Rate , Glucose Level 157H, Calcium Level 8.8, Phosphorus Level 2.6, Magnesium Level 2.2, White Blood Count 20.7H, Red Blood Count 3.58L, Hemoglobin 11.1L, Hematocrit 33.7L, Mean Corpuscular Volume 94, Mean Corpuscular Hemoglobin 31.0, Mean Corpuscular Hemoglobin Concent 32.9, Red Cell Distribution Width 13.2, Platelet Count 144L, Mean Platelet Volume 7.7, Neutrophils (%) (Auto) , Lymphocytes (%) (Auto) , Monocytes (%) (Auto) , Eosinophils (%) (Auto) , Basophils (%) (Auto) , Neutrophils % (Manual) [Pending] , Lymphocytes % (Manual) [Pending], Platelet Estimate [Pending], Platelet Morphology [Pending] Current Medications Medications (Trade) Dose Ordered Sig/Malik Route PRN Reason Start Time Stop Time Status Last Admin Dose Admin Acetaminophen (Tylenol) 650 mg Q4H PRN ORAL Mild Pain/Temp > 100.5 02/04/19 08:00 03/06/19 07:59 Albuterol/ Ipratropium (Albuterol/ Ipratropium) 3 ml Q4HRT HHN 02/04/19 03:00 02/09/19 02:59 02/06/19 03:46 Aspirin (ASA) 81 mg DAILY NG 02/04/19 09:00 03/06/19 08:59 02/05/19 08:41 Chlorhexidine Gluconate (Tigist-Hex 2%) 1 applic DAILY@2000 TOPIC 02/04/19 20:00 03/06/19 19:59 Dextrose (Dextrose 50%) 25 ml Q30M PRN IV Hypoglycemia 02/04/19 00:30 03/06/19 00:29 Dextrose (Dextrose 50%) 50 ml Q30M PRN IV Hypoglycemia 02/04/19 00:30 03/06/19 00:29 Dextrose/Sodium Chloride 1,000 ml @ 80 mls/hr [id number] IV 02/05/19 12:15 03/07/19 12:14 02/06/19 00:20 Fentanyl Citrate (Sublimaze 100 mcg/2 mL) 25 mcg Q4H PRN IV Mild Pain (Pain Scale 1-3) 02/04/19 00:30 02/11/19 00:29 Heparin Sodium (Porcine) (Heparin 5000 units/ml) 5,000 units EVERY 12 HOURS SUBQ 02/04/19 00:00 03/06/19 00:00 02/05/19 20:51 Hydralazine HCl (Apresoline) 10 mg Q6H PRN IV FOR SBP>180 02/04/19 00:00 03/06/19 00:00 Insulin Aspart (NovoLOG) BEFORE MEALS AND HS SUBQ 02/04/19 06:30 03/06/19 06:29 02/06/19 06:07 Methylprednisolone Sodium Succinate (Solu-MEDROL) 80 mg EVERY 8 HOURS IVP 02/04/19 06:00 03/06/19 05:59 02/06/19 05:37 Midazolam HCl 100 ml @ 0 mls/hr Q24H PRN IVPB Restlessness 02/04/19 00:00 02/11/19 00:00 02/04/19 20:07 Ondansetron HCl (Zofran) 4 mg Q8H PRN IVP Nausea & Vomiting 02/04/19 00:30 03/06/19 00:29 Pantoprazole (Protonix) 40 mg Q24H IVP 02/04/19 00:30 03/06/19 00:00 02/06/19 00:19 Phosphorus (Phospha 250 Neutral) 250 mg THREE TIMES A DAY NG 02/06/19 09:00 02/09/19 08:59 Piperacillin Sod/ Tazobactam Sod 3.375 gm/Sodium Chloride 110 ml @ 27.5 mls/hr EVERY 8 HOURS IVPB 02/05/19 23:00 02/10/19 22:59 02/06/19 05:37 Olegario Dowling MD Feb 06, 2019 07:43
--- NOTE | 2019-02-06 08:45 | NUR ---
RESPIRATORY NOTE: Began weaning pt @ 0845 in spontaneous mode with a pressure support of 8cmH20, pt tolerated very well. Vitals wnl, pt in no distress whatsoever. Will follow protocol and continue to monitor pt closely.
--- NOTE | 2019-02-06 08:48 | NUR ---
NURSE NOTES: RT put pt on CPAP mode. VSS. NO acute distress. Will continue to monitor.
[2019-02-06] MEDS: Aspirin Baby 81mg NG SCH (08:58)
[2019-02-06] MEDS: Ciprofloxacin 500mg tab ORAL SCH ×2 (08:58→20:34)
[2019-02-06] MEDS: Phospha 250 Neutral tab NG SCH ×3 (08:58→17:32)
[2019-02-06] MEDS: Heparin 5000 units/ml inj SUBQ SCH ×2 (08:59→20:37)
--- NOTE | 2019-02-06 10:27 | NUR ---
NURSE NOTES: ABG checked 1 1/2 hr post wean to cpap. Message left for dr bullard, awaiting call back. Will continue to monitor.
[2019-02-06] MEDS ORDERED: D5NS 1000ml IV ONE (10:40)
[2019-02-06] MEDS ORDERED: Tubing IV Secondary IV ONE (10:40)
[2019-02-06] MEDS ORDERED: NS 275ml ONE (10:40)
--- NOTE | 2019-02-06 10:49 | NUR ---
NURSE NOTES: Dr Dowling ordered to extubate pt. Will continue to monitor.
--- NOTE | 2019-02-06 12:55 | NUR ---
RESPIRATORY NOTE: Successfully extubated pt without incident per MD order. Pt placed on cool aerosol at previous fi02 (35%). Pt in no distress whatsoever, and 02at >92%, vitals WNL. Rn at [facility] & aware. Will continue to monitor.
--- NOTE | 2019-02-06 12:58 | NUR ---
NURSE NOTES: Pt extubated and placed on 35% cool mist, tolerating well. Will continue to monitor.
--- NOTE | 2019-02-06 12:59 | NUR ---
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 COPD EXACERBATION . PNA VS: BP 144/69, P 24, T 97.0, RR 28, SpO2 100 on VENT FiO2 35 WBC 20.7, RBC3.58, Hgb 11.1, Hct 33.7, BUN 29 IS:PHOSPHORUS 250mg SOLU-MEDROL 60mg IVP CIPROFLOXACIN 500mg POTASSIUM PHOSPHATE 280ml IV ZOSYN 110ml IVPB D5/ NS x1L IV ALBUTEROL 3ml HHN PROTONIX 40mg IVP ICU STATUS
--- NOTE | 2019-02-06 14:28 | NUR ---
NURSE NOTES: Restraints removed. VSS. No acute distress. Pt doing well post extubation. Will continue to monitor.
--- NOTE | 2019-02-06 15:20 | NUR ---
*-* INSURANCE *-* ALL CLINICALS HAVE BEEN FAXED TO: [employer] [address] [place], [place] [id number] Addendum: 02/06/19 at 1617 by LORE THOMSON iNFORMATION ABOVE IS INCORRECT CLINICAL INFORMATION HAS BEEN FAXED O: ZAIRA BONILLA P: [phone] F: [phone]
--- NOTE | 2019-02-06 17:39 | NUR ---
NURSE NOTES: Niece here to see pt. Pt more alert. Pt now on 2 L O2 saturating 100%. No acute distress. Will continue to monitor.
--- NOTE | 2019-02-06 19:02 | NUR ---
HAND-OFF: Report given to Jenaro CONNELLY.
--- NOTE | 2019-02-06 19:45 | NUR ---
NURSE NOTES: PATIENT ALERT, ORIENTED TO NAME AND PLACE, RESPIRATION REGULAR, TACHYPNEA NOTED ON O2 2LPM VIA NC, O2 SATURATION 100% NOTED, NGT TO RIGHT NARES, INTACT AND PATENT, NPO STATUS, ABDOMEN SOFT AND NON TENDER, HYPOACTIVE BOWEL SOUND TO 4 QUADRANTS, 12 Fr. F/C INTACT AND PATENT, YELLOW URINE OUTED, PERIPHERAL LINE TO BOTH FORE ARM 20G, LEAKED TO LEFT FA SITE AND RIGHT FA INTACT AND PATENT, GENERALIZED EDEMA NOTED, ONGOING D5 NS AT 80ML/HR STATUS, MADE LOWER BED POSITION, HOB 30 DEGREE, ON BED ALARM, PROVIDED CALL LIGHT WITHIN REACH, WILL CONTINUE TO MONITOR.
--- NOTE | 2019-02-06 20:35 | NUR ---
NURSE NOTES: GIVEN TYLENOL 650MG VIA NGT FOR PAIN OF 3/10, WILL CONTINUE TO MONITOR, KEPT HOB 30 DEGREE.
--- NOTE | 2019-02-06 22:24 | NUR ---
NURSE NOTES: PATIENT ASLEEP STATUS, NO SOB OR DISTRESS NOTED AT THIS TIME.
[2019-02-07] VITALS (15 sets, daily range): BP systolic 123–143; BP diastolic 60–91
--- NOTE | 2019-02-07 | NUR ---
NURSE NOTES: REPOSITIONED, ORAL CARE WAS DONE, NO DISTRESS NOTED.
[2019-02-07] MEDS: Pantoprazole Inj IVP SCH (00:10)
[2019-02-07] MEDS: D5NS 1,000 ML IV SCH (01:33)
--- NOTE | 2019-02-07 02:41 | NUR ---
NURSE NOTES: PATIENT ASLEEP STATUS, VSS STALE AT THIS TIME.
[2019-02-07] MEDS: Albuterol/Ipratropium 3ml neb HHN SCH ×6 (03:11→23:26)
--- NOTE | 2019-02-07 04:15 | Progress Note ---
DATE: 02/06/2019 CARDIOLOGY PROGRESS NOTE SUBJECTIVE: The patient remains on ventilator support. Weaning was successful and extubation is being initiated. OBJECTIVE: VITAL SIGNS: Blood pressure 127/67, pulse 75, and respirations 16. LUNGS: Diminished breath sounds. Few rales. HEART: Regular rhythm and rate. Normal S1, S2. ABDOMEN: Soft. EXTREMITIES: Trace edema. LABORATORY DATA: White count 20 and hemoglobin 11. Sodium 143, potassium 3.6, bicarbonate 18, BUN 29, and creatinine 1.3. Phosphorus and magnesium have been corrected. ABG, pH 7.39, pCO2 28, and pO2 96. IMPRESSION: 1. Respiratory failure. 2. Myocardial ischemia. 3. Hypomagnesemia and hypophosphatemia, corrected. 4. Chronic obstructive pulmonary disease exacerbation. 5. Lactic acidosis, recovered. 6. Metabolic acidosis, persisting. 7. Gram-negative pneumonia. 8. Acute diastolic congestive heart failure. PLAN: 1. Weaning efforts. 2. Antimicrobials. 3. Replace electrolytes. 4. Nutrition by feeding tube. 5. Antiplatelet therapy. 6. DVT prophylaxis. 7. Diuresis based on clinical parameters. Gee Daevy M.D. DR: RENETTA JOB#: [id number] CC:
--- NOTE | 2019-02-07 04:20 | NUR ---
NURSE NOTES: MORNING CARE WAS DONE, NO BOWEL MOVEMENT.
[2019-02-07 05:49] LABS: HEMATOCRIT 29.2 % (42.0-52.0); HEMOGLOBIN 9.6 G/DL (14.2-18.0); MEAN CORPUSCULAR VOLUME 93 FL (80-99); PLATELET COUNT 157 K/UL (150-450); RED BLOOD COUNT 3.13 M/UL (4.70-6.10); RED CELL DISTRIBUTION WIDTH 12.9 % (11.6-14.8); WHITE BLOOD COUNT 17.1 K/UL (4.8-10.8)
[2019-02-07] MEDS: NovoLOG Insulin Flexpen SUBQ SCH ×4 (06:02→21:00)
[2019-02-07 06:07] LABS: ANION GAP 15 mmol/L (5-15); BLOOD UREA NITROGEN 25 mg/dL (7-18); CALCIUM 8.1 MG/DL (8.5-10.1); CARBON DIOXIDE 19 MMOL/L (21-32); CHLORIDE 114 MMOL/L (98-107); CREATININE 1.2 MG/DL (0.55-1.30); SODIUM 148 MMOL/L (136-145)
[2019-02-07 06:08] LABS: POTASSIUM 2.6 MMOL/L (3.5-5.1)
--- NOTE | 2019-02-07 06:24 | NUR ---
NURSE NOTES: CALLED DR. DENNY REGARDING K LEVEL 2.6 THAT RECEIVED NEW ORDER AND CARRY OUT.
--- NOTE | 2019-02-07 07:10 | NUR ---
HAND-OFF: Report given to MARICEL GARCIA.
--- NOTE | 2019-02-07 07:11 | NUR ---
NURSE NOTES: Report received from Jenaro Louise RN. Pt is awake, alert, and oriented x2-3, resting in bed. Pt denies pain or discomfort. Sinus rhythm on classroom monitor. On N/C 2L. Deep breathing noted. O2 sat 100%. Right nare NGT intact. Kept pt NPO as per order. Sanon in place draining to gravity. IV to left wrist G22 and right FA G20 patent and asymptomatic. Bed in lowest position. Side rails up x3. Will resume plan of care.
--- NOTE | 2019-02-07 08:36 | Pulmonology Progress Note ---
Assessment/Plan Assessment/Plan respiratory failure COPD leukocytosis likely due to steroids WILTON PLAN transfer to tele PT reduced steroids feeds; check swallow avoid positive fluid balance likely needs snf impression, plan, and exam edited and reviewed in detail care discussed with RN Subjective Allergies: Coded Allergies: No Known Allergies (Unverified , 02/10/18) UNABLE TO ASSESS (Unverified , 02/03/19) Subjective care noted and reviewed off vent Objective Last 24 Hour Vital Signs Date Time Temp Pulse Resp B/P (MAP) Pulse Ox O2 Delivery O2 Flow Rate FiO2 02/07/19 07:20 92 20 100 Nasal Cannula 2.0 28 02/07/19 07:12 Nasal Cannula 2.0 28 02/07/19 07:12 88 20 100 Nasal Cannula 2.0 28 02/07/19 07:00 90 19 139/61 (87) 100 02/07/19 06:00 97 21 142/62 (88) 100 02/07/19 05:00 95 20 124/75 (91) 100 02/07/19 04:00 2.0 02/07/19 04:00 98.6 102 19 136/66 (89) 100 02/07/19 04:00 Nasal Cannula 2.0 Nasal Cannula 2.0 02/07/19 03:49 100 02/07/19 03:20 90 22 100 Nasal Cannula 2.0 28 02/07/19 03:10 89 19 100 Nasal Cannula 2.0 28 02/07/19 03:00 96 24 137/70 (92) 100 02/07/19 02:00 98 24 134/63 (86) 100 02/07/19 01:00 101 22 138/65 (89) 100 02/07/19 00:00 2.0 02/07/19 00:00 Nasal Cannula 2.0 Nasal Cannula 2.0 02/07/19 00:00 98.5 99 19 125/60 (81) 100 02/06/19 23:45 100 02/06/19 23:19 95 19 100 Nasal Cannula 2.0 28 02/06/19 23:10 102 27 100 Nasal Cannula 2.0 28 02/06/19 23:00 104 28 137/70 (92) 100 02/06/19 22:00 102 26 136/80 (98) 100 02/06/19 21:00 105 27 136/62 (86) 100 02/06/19 20:00 Nasal Cannula 2.0 Nasal Cannula 2.0 02/06/19 20:00 2.0 02/06/19 20:00 98.3 104 24 137/62 (87) 100 02/06/19 19:48 91 17 100 Nasal Cannula 2.0 28 02/06/19 19:41 Nasal Cannula 2.0 28 02/06/19 19:37 95 25 100 Nasal Cannula 2.0 28 02/06/19 19:16 95 02/06/19 19:00 95 21 143/65 (91) 100 02/06/19 18:00 96 21 141/70 (93) 100 02/06/19 17:00 97 23 138/63 (88) 100 02/06/19 16:00 97.3 93 18 134/60 (84) 100 02/06/19 16:00 92 02/06/19 16:00 35 02/06/19 16:00 Mechanical Ventilator 02/06/19 15:25 84 20 100 Nasal Cannula 2.0 28 02/06/19 15:17 88 26 100 Nasal Cannula 2.0 28 02/06/19 15:00 88 22 122/64 (83) 100 02/06/19 14:00 86 20 137/66 (89) 100 02/06/19 13:00 86 25 128/66 (86) 100 02/06/19 12:55 Nasal Cannula 2.0 28 02/06/19 12:00 97.9 79 21 131/66 (87) 100 02/06/19 12:00 35 02/06/19 12:00 Mechanical Ventilator 02/06/19 12:00 80 02/06/19 11:39 80 24 100 Mechanical Ventilator 35 02/06/19 11:20 80 24 35 02/06/19 11:15 82 23 100 Mechanical Ventilator 35 02/06/19 11:00 78 21 132/61 (84) 100 02/06/19 10:00 77 19 127/60 (82) 100 02/06/19 08:38 80 24 35 35 Intake and Output 02/06/19 02/07/19 18:59 06:59 Intake Total 1034.167 ml 1040 ml Output Total 890 ml 910 ml Balance 144.167 ml 130 ml IV Total 1034.167 ml 960 ml Other 80 ml Output Urine Total 890 ml 910 ml Objective WDWN NAD reduced breath sounds bilaterally without rhonchi or wheeze [id number] without MRG NABS nontender no HSM no CCE nonfocal Microbiology Date/Time Source Procedure Growth Status 02/05/19 13:05 Sputum Gram Stain - Final Resulted 02/05/19 13:05 Sputum Culture - Preliminary Gram Negative Bacillus 1 Resulted Laboratory Tests 02/06/19 10:00: Arterial Blood pH 7.392, Arterial Blood Partial Pressure CO2 28.3L, Arterial Blood Partial Pressure O2 96.8, Arterial Blood HCO3 16.8*L, Arterial Blood Oxygen Saturation 96.7, Arterial Blood Base Excess -6.9L, Jacob Test Positive 02/07/19 05:00: White Blood Count 17.1H, Red Blood Count 3.13L, Hemoglobin 9.6L, Hematocrit 29.2L, Mean Corpuscular Volume 93, Mean Corpuscular Hemoglobin 30.7, Mean Corpuscular Hemoglobin Concent 33.0, Red Cell Distribution Width 12.9, Platelet Count 157, Mean Platelet Volume 8.0, Neutrophils (%) (Auto) , Lymphocytes (%) ( Auto) , Monocytes (%) (Auto) , Eosinophils (%) (Auto) , Basophils (%) (Auto) , Neutrophils % (Manual) [Pending], Lymphocytes % (Manual) [Pending], Platelet Estimate [Pending], Platelet Morphology [Pending], Sodium Level 148H, Potassium Level 2.6*L, Chloride Level 114H, Carbon Dioxide Level 19L, Anion Gap 15, Blood Urea Nitrogen 25H, Creatinine 1.2, Estimat Glomerular Filtration Rate , Glucose Level 173H, Calcium Level 8.1L, Pro-B-Type Natriuretic Peptide 8038H Current Medications Medications (Trade) Dose Ordered Sig/Malik Route PRN Reason Start Time Stop Time Status Last Admin Dose Admin Acetaminophen (Tylenol) 650 mg Q4H PRN ORAL Mild Pain/Temp > 100.5 02/04/19 08:00 03/06/19 07:59 02/06/19 20:35 Albuterol/ Ipratropium (Albuterol/ Ipratropium) 3 ml Q4HRT HHN 02/04/19 03:00 02/09/19 02:59 02/07/19 07:46 Aspirin (ASA) 81 mg DAILY NG 02/04/19 09:00 03/06/19 08:59 02/06/19 08:58 Ciprofloxacin (Cipro 500mg tab) 500 mg EVERY 12 HOURS ORAL 02/06/19 09:00 02/13/19 08:59 02/06/19 20:34 Dextrose (Dextrose 50%) 25 ml Q30M PRN IV Hypoglycemia 02/04/19 00:30 03/06/19 00:29 Dextrose (Dextrose 50%) 50 ml Q30M PRN IV Hypoglycemia 02/04/19 00:30 03/06/19 00:29 Heparin Sodium (Porcine) (Heparin 5000 units/ml) 5,000 units EVERY 12 HOURS SUBQ 02/04/19 00:00 03/06/19 00:00 02/06/19 20:37 Hydralazine HCl (Apresoline) 10 mg Q6H PRN IV FOR SBP>180 02/04/19 00:00 03/06/19 00:00 Insulin Aspart (NovoLOG) BEFORE MEALS AND HS SUBQ 02/04/19 06:30 03/06/19 06:29 02/07/19 06:02 Methylprednisolone Sodium Succinate (Solu-MEDROL) 30 mg Q12HR IVP 02/07/19 09:00 03/08/19 08:59 UNV Midazolam HCl 100 ml @ 0 mls/hr Q24H PRN IVPB Restlessness 02/04/19 00:00 02/11/19 00:00 02/04/19 20:07 Ondansetron HCl (Zofran) 4 mg Q8H PRN IVP Nausea & Vomiting 02/04/19 00:30 03/06/19 00:29 Pantoprazole (Protonix) 40 mg Q24H IVP 02/04/19 00:30 03/06/19 00:00 02/07/19 00:10 Phosphorus (Phospha 250 Neutral) 250 mg THREE TIMES A DAY NG 02/06/19 09:00 02/09/19 08:59 02/06/19 17:32 Potassium Chloride 100 ml @ 100 mls/hr Q1H IVPB 02/07/19 06:45 02/07/19 10:44 02/07/19 06:46 Potassium Chloride (K-Dur) 40 meq Q4H NG 02/07/19 08:00 02/07/19 12:01 Olegario Dowling MD Feb 07, 2019 08:36
[2019-02-07] MEDS: Phospha 250 Neutral tab NG SCH ×2 (08:48→12:11)
[2019-02-07] MEDS: Aspirin Baby 81mg NG SCH (08:49)
[2019-02-07] MEDS: Ciprofloxacin 500mg tab ORAL SCH ×2 (08:49→21:12)
[2019-02-07] MEDS: Heparin 5000 units/ml inj SUBQ SCH ×2 (08:50→21:13)
[2019-02-07] MEDS ORDERED: Solu-MEDROL 40mg Inj IVP SCH (09:00)
--- NOTE | 2019-02-07 09:30 | NUR ---
NURSE NOTES: Oral care done. Turned and repositioned pt. Pt oriented to name and time. O2 sat 100% on 2L N/C. Will continue to monitor.
--- NOTE | 2019-02-07 09:38 | NUR ---
DREDGE OPERATORMETER READER SI:RESPIRATORY FAILURE . LEUKOCYTOSIS VS: BP 143/71, P 103, T 98.2, SpO2 100 on 2.0L O2 NC WBC 17.1, RBC 3.13, Hgb 9.6, Hct 29.2, Na 148, K 2.6, BUN 25 IS:K-DUR 40meq POTASSIUM CHLORIDE 100ml IVPB PHOSPHORUS 250mg CIPROFLOXACIN 500mg NOVOLOG SUBQ EXTUBATED 02/06 PLAN TRANSFER TO TELE ICU STATUS
--- NOTE | 2019-02-07 12:00 | NUR ---
NURSE NOTES: No acute distress noted. Breathing treatment scheduled given as per order. O2 sat 100% on N/C 2L. Turned and repositioned. Will continue to monitor.
--- NOTE | 2019-02-07 14:03 | NUR ---
TRANSFER TO FLOOR: Patient transferred to MARICEL Bryant. Report given to MARICEL Bryant. Belongings and medications given to MARICEL Bryant. Will inform family of transfer.
--- NOTE | 2019-02-07 15:15 | NUR ---
*-* INSURANCE *-* UPDATED CLINICALS AND REVIEWS HAVE BEEN FAXED TO; [facility] P: [phone] F: [phone]
--- NOTE | 2019-02-07 15:23 | NUR ---
RD ASSESSMENT & RECOMMENDATIONS SEE CARE ACTIVITY FOR COMPLETE ASSESSMENT DAILY ESTIMATED NEEDS: Needs based on Pulmonary/ 62.7kg 25-30 kcals/kg 2607-2718 total kcals 1-1.5 g protein/kg 63-94 g total protein 25-30 mL/kg 3973-9395 total fluid mLs NUTRITION DIAGNOSIS: * Swallowing difficulty R/T respiratory status as evidenced by now extubated, NPO, BUILDING CARPENTER HELPER eval pending. * Altered nutrition related lab values R/T clinical condition as evidenced by low K (2.6), elev creat (now wnl), elev FBGs (173 157) and POC glu (120-174), pt on solumedrol. CURRENT DIET:NPO PO DIET RECOMMENDATIONS: BUILDING CARPENTER HELPER eval post extubation-> CCHO MED/ texture per BUILDING CARPENTER HELPER ENTERAL NUTRITION RECOMMENDATIONS: Glucerna 1.2 @ 55ml/hr x 24 hrs to provide 1320ml, 1584kcal, 79g prot, 1062ml free water * If not safe for PO, initiate NGT feeding * Initiate Glucerna 1.2 @ 25ml/hr x 6 hrs, advance 10ml q 4-6 hrs as tolerated to goal rate. ADDITIONAL RECOMMENDATIONS: * Calibrated bedscale wt for accurate CBW * Monitor lytes, replete as needed (low K) * Monitor BGs closely while on solumedrol * A1C for eval of glycemic control
--- NOTE | 2019-02-07 15:46 | NUR ---
DISCHARGE PLANNING Discharge order noted Patient has been referred to [facility] Await Acceptance and Room Number
[2019-02-07] MEDS ORDERED: Phospha 250 Neutral tab NG SCH (18:00)
--- NOTE | 2019-02-07 19:25 | NUR ---
NURSE NOTES: RECEIVED PATIENT RESTING IN BED, NO COMPLAINTS OF PAIN AT THIS TIME. FALL AND ASPIRATION PRECAUTIONS IN PLACE: CALL LIGHT AND BEDSIDE TABLE WITHIN REACH, BED IN LOW POSITION AND BED ALARM ON; HOB ELEVATED AT LEAST 30 DEGREES. WILL CONTINUE WITH PLAN OF CARE.
--- NOTE | 2019-02-07 19:32 | NUR ---
HAND-OFF: Report given to MARICEL Agarwal. Plan of care endorsed
[2019-02-07] MEDS: Solu-MEDROL 40mg Inj IVP SCH (21:12)
[2019-02-08] VITALS: BP 131/72
[2019-02-08] MEDS ORDERED: Midazolam/D5W 100ml 100 ML IVPB PRN
--- NOTE | 2019-02-08 00:29 | NUR ---
NURSE NOTES: PATIENT PULLED NGT OUT. CALLED AND LEFT MESSAGE FOR DR. DENNY.
[2019-02-08] MEDS: 1/2NS w/KCl 20mEq 1000ml 1,000 ML IV SCH ×3 (02:00→22:02)
[2019-02-08] MEDS: Albuterol/Ipratropium 3ml neb HHN SCH ×6 (03:12→23:59)
[2019-02-08 04:00] VITALS: BP 136/79
--- NOTE | 2019-02-08 06:18 | NUR ---
NURSE NOTES: DR. CLAYTON RESPONDED OK TO HAVE NGT OUT AND TO WAIT FOR SWALLOW EVALUATION.
[2019-02-08] MEDS: NovoLOG Insulin Flexpen SUBQ SCH ×4 (06:30→21:00)
[2019-02-08 06:36] LABS: HEMOGLOBIN 9.8 G/DL (14.2-18.0); MEAN CORPUSCULAR VOLUME 92 FL (80-99); PLATELET COUNT 181 K/UL (150-450); RED BLOOD COUNT 3.14 M/UL (4.70-6.10); RED CELL DISTRIBUTION WIDTH 13.3 % (11.6-14.8); WHITE BLOOD COUNT 16.4 K/UL (4.8-10.8)
--- NOTE | 2019-02-08 07:09 | NUR ---
HAND-OFF: Report given to Quintin NESS RN. PATIENT RESTING IN BED, RECEIVING HHN TREATMENT BY RT, NO SIGNS OF DISTRESS NOTED.
[2019-02-08 07:10] LABS: ALANINE AMINOTRANSFERASE 110 U/L (12-78); ALBUMIN 2.2 G/DL (3.4-5.0); ALBUMIN/GLOBULIN RATIO 0.6 (1.0-2.7); ALKALINE PHOSPHATASE 97 U/L (46-116); ANION GAP 12 mmol/L (5-15); ASPARTATE AMINO TRANSFERASE 128 U/L (15-37); BILIRUBIN,TOTAL 0.9 MG/DL (0.2-1.0); BLOOD UREA NITROGEN 30 mg/dL (7-18); CALCIUM 8.4 MG/DL (8.5-10.1); CARBON DIOXIDE 23 MMOL/L (21-32); CHLORIDE 114 MMOL/L (98-107); CREATININE 1.1 MG/DL (0.55-1.30); POTASSIUM 3.8 MMOL/L (3.5-5.1); SODIUM 149 MMOL/L (136-145)
--- NOTE | 2019-02-08 07:10 | NUR ---
NURSE NOTES: Received report from MARICEL Agarwal. The patient is resting on bed without acute distress or shortness of breath. The patient's bed is in the lowest position, call light in reach, and fall and aspiration precaution reinforced. Will continue plan of care.
[2019-02-08 08:00] VITALS: BP 142/72
--- NOTE | 2019-02-08 08:00 | Progress Note ---
DATE: 02/07/2019 CARDIOLOGY PROGRESS NOTE SUBJECTIVE: The patient remains off ventilator. No respiratory distress. OBJECTIVE: VITAL SIGNS: Blood pressure 139/61, pulse 90, and respirations 19. LUNGS: Coarse breath sounds. No wheezing. HEART: Regular rhythm and rate. Normal S1, S2. ABDOMEN: Soft. EXTREMITIES: No edema. LABORATORY DATA: White count 17 and hemoglobin 9.6. Potassium 2.6. Sodium 148, bicarb 19, chloride 114, BUN 25, and creatinine 1.2. Pro-natriuretic peptide is 8000. Sputum is positive for Serratia marcescens. IMPRESSION: 1. Dehydration. 2. Hypernatremia. 3. Hypokalemia. 4. Corrected hypomagnesemia and hypophosphatemia. 5. Chronic obstructive pulmonary disease exacerbation. 6. Resolved lactic acidosis. 7. Recovering metabolic acidosis. 8. Gram-negative pneumonia. 9. Acute diastolic congestive heart failure. PLAN: 1. Hypotonic intravenous fluids. 2. Potassium replacement. 3. Recheck magnesium. 4. Recheck chest radiograph. 5. Steroids with taper. 6. Antimicrobials and respiratory hygiene. 7. DVT prophylaxis. Gee Davey M.D. DR: RENETTA JOB#: [id number] CC:
[2019-02-08] MEDS ORDERED: Aspirin Baby 81mg ORAL SCH (09:00)
[2019-02-08] MEDS ORDERED: Phospha 250 Neutral tab ORAL SCH (09:00)
[2019-02-08] MEDS ORDERED: Aspirin Baby 81mg NG SCH (09:00)
[2019-02-08] MEDS: Solu-MEDROL 40mg Inj IVP SCH ×2 (09:19→22:00)
[2019-02-08] MEDS: Heparin 5000 units/ml inj SUBQ SCH ×2 (09:20→21:00)
[2019-02-08] MEDS: Ciprofloxacin 500mg tab ORAL SCH (09:20)
--- NOTE | 2019-02-08 11:20 | NUR ---
Social Service Note JOSHUA attempted to obtain history from patient yesterday however patient was lethargic, with soft speech. Unable to reach patient's niece Crystal [phone]. Number appears to be a phone number with no Voice mail. Patient has been referred to [place] for rehab services upon discharge. Patient is a full code. Will monitor and continue to follow up. JOSHUA discussed with primary nurse to obtain an alternative phone number if niece calls or visits.
[2019-02-08 12:00] VITALS: BP 144/93
--- NOTE | 2019-02-08 12:33 | NUR ---
REFERRED BY DR DENNY FOR A SWALLOW EVAL, SEE FULL REPORT TO FOLLOW. DYSPHAGIA RISK FACTORS FOR THIS 88 Y.O.M.: ACUTE RESP DISTRESS, PNA (BILAT LUNG BASES) WITH H/O RECURRENT PNA HAD RLL PNA 02/10/18 AND PER PT HAD PNA 3-4 MONTHS AGO AT [facility]. COPD EXACERBATION, SEVERE SEPSIS, REQUIRED BIPAP THEN INTUBATED 02/04 TO 02/07 RR 22, Fi02 38, HIGH BP 142/72 (95),O2 SATS 2 LITERS NC 98. RHONCHI AND NEEDS OROPHARYNGEAL SUCTION BY RN FREQUENTLY. H/O EMPHYSEMA, LUNG FIBROSIS, HTN, PROSTATE CA, GERD MEDS (PROTONIX), CARDIAC D/O, CURRENT SMOKER, SMALL HIATAL HERNIA. NO POLST IN CHART REGARDING TUBE FEEDING PREFERENCES, TRYING TO FIND NUMBER FOR HIS NIECE. H/O DYSPHAGIA 04/2015 CHOKED ON BURRITO AND [place] [facility] [place] PER PT HE WENT TO [facility] FOR F/UP BUT FORGETS DETAILS OF SWALLOW WORK-UP (POOR MEMORY). HAD NGT WITH GLUCERNA FORMULA (16 CROATIAN PULLED) OUT RECENTLY AND ONLY HAS IVF. IS NPO FOR SWALLOW EVAL. ALERT AND ABLE TO CONVEY BASIC NEEDS BUT SOB EVEN WITH 2 LITER NC. 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 TONGUE AND BACK OF THROAT HAVE ? THRUSH VERSUS WHITE/DARK SUBSTANCE, NEEDS ORAL CARE OR MEDS WEAK VOLITIONAL COUGH AND VOICE RECOMMENDATIONS: KEEP NPO AND REINSERT NGT (SMALLER MAKE 12 NOT 16) COMPLETE ORAL CARE AND R/O THRUSH CONTINUE WITH ORAL SUCTION PRN (TRAIN PATIENT TO SELF-SUCTION IF NEEDED) NOT SAFE FOR PO TRIALS NOR MOD BARIUM SWALLOW AT THIS TIME WILL CHECK FOR MOD BARIUM SWALLOW STUDY READINESS DYSPHAGIA MANAGEMENT AND TX AND COG-COM EVAL/TX CONSIDER NEURO CONSULT GIVEN TO DETERMINE IF ADDITIONAL ISSUE IN ADDITIONAL TO HIS BREATHING AND SWALLOWING INCOORDINATION ASPIRATION RISKS. IF HAD BURRITO STUCK IN THROAT, QUESTION PHYSIOLOGICAL WEAKNESS OF PHARYNX PLUS HAS A H/O SMOKING AND PROSTATE CA ? ANATOMICAL CHANGES. POSTED ORAL CARE AND ASP PREC WITH SECRETIONS. D/W DR DENNY AND HE AGREED WITH REC PER RN (TARA) Addendum: 02/08/19 at 1248 by LTITLE TOURE STILE RIPSAW OPERATOR LEFT MESSAGE WITH MURTAZA (CRYSTAL AT [phone]) Addendum: 02/08/19 at 1257 by LITTLE TOURE STILE RIPSAW OPERATOR H/O PNA HAD RLL PNA 02/10/18 (PER PT HAD PNA 3-4 MONTHS AGO) AT [facility]. PER MURTAZA THIS IS THE SAME ADMISSION FROM 2018. MURTAZA TO GET HIS RECORDS FROM THE [facility]. MURTAZA FEELS HIS SWALLOWING WAS NOT A PROBLEM VERIFICATION MANAGER SINCE HE WAS ON A REG TEXTURES AND THIN LIQUIDS.
[2019-02-08] MEDS: Nystatin Susp 500,000 units/5ml NG SCH ×2 (13:00→18:00)
--- NOTE | 2019-02-08 13:19 | NUR ---
FAMILY CONSUMER SCIENCE FCS TEACHERSUPERVISOR STERILE PROCESSING SI:RESPIRATORY FAILURE . LEUKOCYTOSIS VS: BP 144/93, P 109, T 97.2, RR 24, SPO2 96 on 2.0L O2 NC WBC 16.4, RBC 3.14, H&H 9.8/29.0, Na 149, BUN 30 IS:MAGNESIUM SULFATE 100ml IVPB PHOSPHORUS 250mg NS x1L IV CIPROFLOXACIN 500mg HEPARIN SUBQ SOLU-MEDROL 30mg ALBUTEROL 3ml HHN TELE STATUS
[2019-02-08] MEDS: Phospha 250 Neutral tab NG SCH ×2 (13:30→18:00)
--- NOTE | 2019-02-08 13:34 | Pulmonology Progress Note ---
Assessment/Plan Assessment/Plan Pulmonary Progress Note Assessment/Plan respiratory failure COPD leukocytosis likely due to steroids [facility] PLAN transfer to tele PT reduced steroids feeds; check swallow avoid positive fluid balance likely needs snf impression, plan, and exam edited and reviewed in detail care discussed with RN Subjective Allergies: Coded Allergies: No Known Allergies (Unverified , 02/10/18) UNABLE TO ASSESS (Unverified , 02/03/19) Subjective care noted and reviewed off vent Objective Vital Signs Noted Objective WDWN NAD reduced breath sounds bilaterally without rhonchi or wheeze [id number] without MRG NABS nontender no HSM no CCE nonfocal Microbiology Date/Time Source Procedure Growth Status 02/05/19 13:05 Sputum Gram Stain - Final Resulted 02/05/19 13:05 Sputum Culture - Preliminary Gram Negative Bacillus 1 Resulted Laboratory Tests 02/06/19 10:00: Arterial Blood pH 7.392, Arterial Blood Partial Pressure CO2 28.3L, Arterial Blood Partial Pressure O2 96.8, Arterial Blood HCO3 16.8*L, Arterial Blood Oxygen Saturation 96.7, Arterial Blood Base Excess -6.9L, Jacob Test Positive 02/07/19 05:00: White Blood Count 17.1H, Red Blood Count 3.13L, Hemoglobin 9.6L, Hematocrit 29.2L, Mean Corpuscular Volume 93, Mean Corpuscular Hemoglobin 30.7, Mean Corpuscular Hemoglobin Concent 33.0, Red Cell Distribution Width 12.9, Platelet Count 157, Mean Platelet Volume 8.0, Neutrophils (%) (Auto) , Lymphocytes (%) ( Auto) , Monocytes (%) (Auto) , Eosinophils (%) (Auto) , Basophils (%) (Auto) , Neutrophils % (Manual) [Pending], Lymphocytes % (Manual) [Pending], Platelet Estimate [Pending], Platelet Morphology [Pending], Sodium Level 148H, Potassium Level 2.6*L, Chloride Level 114H, Carbon Dioxide Level 19L, Anion Gap 15, Blood Urea Nitrogen 25H, Creatinine 1.2, Estimat Glomerular Filtration Rate , Glucose Level 173H, Calcium Level 8.1L, Pro-B-Type Natriuretic Peptide 8038H Current Medications Medications (Trade) Dose Ordered Sig/Malik Route PRN Reason Start Time Stop Time Status Last Admin Dose Admin Acetaminophen (Tylenol) 650 mg Q4H PRN ORAL Mild Pain/Temp > 100.5 02/04/19 08:00 03/06/19 07:59 02/06/19 20:35 Albuterol/ Ipratropium (Albuterol/ Ipratropium) 3 ml Q4HRT HHN 02/04/19 03:00 02/09/19 02:59 02/07/19 07:46 Aspirin (ASA) 81 mg DAILY NG 02/04/19 09:00 03/06/19 08:59 02/06/19 08:58 Ciprofloxacin (Cipro 500mg tab) 500 mg EVERY 12 HOURS ORAL 02/06/19 09:00 02/13/19 08:59 02/06/19 20:34 Dextrose (Dextrose 50%) 25 ml Q30M PRN IV Hypoglycemia 02/04/19 00:30 03/06/19 00:29 Dextrose (Dextrose 50%) 50 ml Q30M PRN IV Hypoglycemia 02/04/19 00:30 03/06/19 00:29 Heparin Sodium (Porcine) (Heparin 5000 units/ml) 5,000 units EVERY 12 HOURS SUBQ 02/04/19 00:00 03/06/19 00:00 02/06/19 20:37 Hydralazine HCl (Apresoline) 10 mg Q6H PRN IV FOR SBP>180 02/04/19 00:00 03/06/19 00:00 Insulin Aspart (NovoLOG) BEFORE MEALS AND HS SUBQ 02/04/19 06:30 03/06/19 06:29 02/07/19 06:02 Methylprednisolone Sodium Succinate (Solu-MEDROL) 30 mg Q12HR IVP 02/07/19 09:00 03/08/19 08:59 UNV Midazolam HCl 100 ml @ 0 mls/hr Q24H PRN IVPB Restlessness 02/04/19 00:00 02/11/19 00:00 02/04/19 20:07 Ondansetron HCl (Zofran) 4 mg Q8H PRN IVP Nausea & Vomiting 02/04/19 00:30 03/06/19 00:29 Pantoprazole (Protonix) 40 mg Q24H IVP 02/04/19 00:30 03/06/19 00:00 02/07/19 00:10 Phosphorus (Phospha 250 Neutral) 250 mg THREE TIMES A DAY NG 02/06/19 09:00 02/09/19 08:59 02/06/19 17:32 Potassium Chloride 100 ml @ 100 mls/hr Q1H IVPB 02/07/19 06:45 02/07/19 10:44 02/07/19 06:46 Potassium Chloride (K-Dur) 40 meq Q4H NG 02/07/19 08:00 02/07/19 12:01 Subjective ROS Limited/Unobtainable: No Allergies: Coded Allergies: No Known Allergies (Unverified , 02/10/18) UNABLE TO ASSESS (Unverified , 02/03/19) Objective Last 24 Hour Vital Signs Date Time Temp Pulse Resp B/P (MAP) Pulse Ox O2 Delivery O2 Flow Rate FiO2 02/08/19 12:00 97.2 109 24 144/93 (110) 96 02/08/19 10:43 100 22 98 Nasal Cannula 2.0 28 02/08/19 10:33 91 23 97 Nasal Cannula 2.0 28 02/08/19 09:00 Nasal Cannula 2.0 Nasal Cannula 2.0 02/08/19 08:00 99 02/08/19 08:00 97.2 96 21 142/72 (95) 96 02/08/19 07:14 87 22 98 Nasal Cannula 2.0 28 02/08/19 07:03 86 21 96 Nasal Cannula 2.0 28 02/08/19 07:02 Nasal Cannula 2.0 28 02/08/19 07:02 96 Nasal Cannula 2.0 28 02/08/19 04:00 86 02/08/19 04:00 98.1 95 17 136/79 (98) 92 02/08/19 03:13 Nasal Cannula 2.0 28 02/08/19 03:12 Nasal Cannula 2.0 28 02/08/19 00:00 100 02/08/19 00:00 98.3 109 19 131/72 (91) 94 02/07/19 23:38 89 22 97 Nasal Cannula 2.0 28 02/07/19 23:28 87 22 96 Nasal Cannula 2.0 28 02/07/19 21:00 Nasal Cannula 2.0 Nasal Cannula 2.0 02/07/19 20:07 101 22 97 Nasal Cannula 2.0 28 02/07/19 20:00 96 02/07/19 20:00 97.4 103 24 138/78 (98) 93 02/07/19 19:59 Nasal Cannula 2.0 28 02/07/19 19:57 99 22 95 Nasal Cannula 2.0 28 02/07/19 16:00 2.0 02/07/19 16:00 101 02/07/19 15:25 99 24 100 Nasal Cannula 2.0 28 02/07/19 15:15 82 24 96 Nasal Cannula 2.0 28 Intake and Output 02/07/19 02/08/19 18:59 06:59 Intake Total 601 ml 400 ml Output Total 1090 ml 600 ml Balance -489 ml -200 ml IV Total 601 ml 400 ml Output Urine Total 1090 ml 600 ml Laboratory Tests 02/08/19 05:35: White Blood Count 16.4H, Red Blood Count 3.14L, Hemoglobin 9.8L, Hematocrit 29.0L, Mean Corpuscular Volume 92, Mean Corpuscular Hemoglobin 31.2H, Mean Corpuscular Hemoglobin Concent 33.8, Red Cell Distribution Width 13.3, Platelet Count 181, Mean Platelet Volume 7.7, Neutrophils (%) (Auto) , Lymphocytes (%) ( Auto) , Monocytes (%) (Auto) , Eosinophils (%) (Auto) , Basophils (%) (Auto) , Differential Total Cells Counted 100, Neutrophils % (Manual) 92H, Lymphocytes % (Manual) 5L, Monocytes % (Manual) 3, Eosinophils % (Manual) 0, Basophils % ( Manual) 0, Band Neutrophils 0, Platelet Estimate Adequate, Platelet Morphology Normal, Red Blood Cell Morphology Normal, Sodium Level 149H, Potassium Level 3.8 , Chloride Level 114H, Carbon Dioxide Level 23, Anion Gap 12, Blood Urea Nitrogen 30H, Creatinine 1.1, Estimat Glomerular Filtration Rate , Glucose Level 127H, Calcium Level 8.4L, Magnesium Level 1.7L, Total Bilirubin 0.9, Aspartate Amino Transf (AST/SGOT) 128H, Alanine Aminotransferase (ALT/SGPT) 110H , Alkaline Phosphatase 97, Pro-B-Type Natriuretic Peptide 21151H, Total Protein 5.8L, Albumin 2.2L, Globulin 3.6, Albumin/Globulin Ratio 0.6L Current Medications Medications (Trade) Dose Ordered Sig/Malik Route PRN Reason Start Time Stop Time Status Last Admin Dose Admin Acetaminophen (Tylenol) 650 mg Q4H PRN ORAL Mild Pain/Temp > 100.5 02/07/19 15:00 03/06/19 14:59 Albuterol/ Ipratropium (Albuterol/ Ipratropium) 3 ml Q4HRT HHN 02/07/19 15:00 02/09/19 02:59 02/08/19 10:33 Aspirin (ASA) 81 mg DAILY NG 02/09/19 09:00 03/06/19 08:59 Ciprofloxacin (Cipro 500mg tab) 500 mg EVERY 12 HOURS NG 02/08/19 21:00 02/13/19 08:59 Dextrose (Dextrose 50%) 25 ml Q30M PRN IV Hypoglycemia 02/07/19 14:00 03/06/19 00:29 Dextrose (Dextrose 50%) 50 ml Q30M PRN IV Hypoglycemia 02/07/19 14:00 03/06/19 00:29 Heparin Sodium (Porcine) (Heparin 5000 units/ml) 5,000 units EVERY 12 HOURS SUBQ 02/07/19 21:00 03/06/19 00:00 02/08/19 09:20 Hydralazine HCl (Apresoline) 10 mg Q6H PRN IV FOR SBP>180 02/07/19 15:00 03/06/19 14:59 Insulin Aspart (NovoLOG) BEFORE MEALS AND HS SUBQ 02/07/19 16:30 03/06/19 06:29 Magnesium Sulfate 100 ml @ 100 mls/hr Q1H IVPB 02/08/19 12:30 02/08/19 14:29 02/08/19 13:07 Methylprednisolone Sodium Succinate (Solu-MEDROL) 30 mg Q12HR IVP 02/07/19 21:00 03/08/19 08:59 02/08/19 09:19 Nystatin (Nystatin) 5 ml Q6HR NG 02/08/19 13:00 02/15/19 12:59 Ondansetron HCl (Zofran) 4 mg Q8H PRN IVP Nausea & Vomiting 02/07/19 14:30 03/06/19 14:29 Pantoprazole (Protonix) 40 mg Q24H IVP 02/08/19 21:00 03/06/19 20:59 Phosphorus (Phospha 250 Neutral) 250 mg THREE TIMES A DAY NG 02/08/19 13:30 03/10/19 13:29 Sodium 1,000 ml @ 100 mls/hr Q10H IV 02/08/19 02:00 03/10/19 01:59 02/08/19 13:28 Gee Macedo MD February 08, 2019 13:34
--- NOTE | 2019-02-08 13:55 | NUR ---
RADIOLOGY DEPT., ABDOMEN X-RAY FOR NGT PLMT COMPLETED.-P.DYE
--- NOTE | 2019-02-08 14:31 | NUR ---
*-* INSURANCE *-* UPDATED CLINICALS HAVE BEEN FAXED TO; [facility] P: [phone] F: [phone]
--- NOTE | 2019-02-08 14:58 | Diagnostic Imaging Report ---
APPROVED REPORT CPT Code: 74483 Present Symptoms Shortness of breath BILATERAL: Imaging reveals a patent deep venous system bilaterally. There is no evidence of thrombus within the common femoral, superficial femoral, popliteal or tibial segments. The greater saphenous veins are within normal limits. Doppler indicates normal spontaneous flow within these segments.
--- NOTE | 2019-02-08 15:09 | Diagnostic Imaging Report ---
Indication: Post nasogastric tube placement Technique: Supine view of the upper abdomen Comparison: 02/04/2019 Findings: No nasogastric tube is demonstrated. Reticular interstitial opacities are again demonstrated in the lower lungs. Considerable gas is seen in large and small bowel, not definitely dilated Impression: No nasogastric tube visualized. Medical history sepsis status post nasogastric tube placement. Tube therefore presumably within the upper esophagus or hypopharynx Patient's nurse notified of critical value findings at the time of interpretation
--- NOTE | 2019-02-08 15:10 | NUR ---
NURSE NOTES: After speech evaluation, NG tube tried to be placed per Dr. Dowling's order. 1st NG tube placement made and took KUB for verification but was not placed at stomach. Then, NG tube placement tried again but unable to be placed. Dr. Dowling informed to Dr. Colunga.
[2019-02-08 16:00] VITALS: BP 154/83
--- NOTE | 2019-02-08 16:49 | NUR ---
P.T Note: P.T evaluation completed and treatment initiated. Please refer to P.T evaluation for current functional status. Pt limited by generalized weakness and deconditioned state. Pt presented SOB upon simple exertion and conversation requiring intermittent rest breaks to perform and complete mobility tasks. MOD/MAX for bed mobility , transfers and standing balance activities. Skilled P.T service is warranted to increase his strength, balance and activity tolerance to increase his functional mobility independence and safety. Recommend SNF for further rehab VS home P.T at [place]. Addendum: 02/08/19 at 1650 by SANDHYA HOPPER PT Amended: Links added.
--- NOTE | 2019-02-08 17:00 | NUR ---
NURSE NOTES: Dr. Fenton came in to check the patient. Informed Dr. Fenton that the patient tried NG tube twice but not able to place it. Dr. Fenton will contact back for plan of care since G-tube may not be necessary. Will continue plan of care.
--- NOTE | 2019-02-08 19:25 | NUR ---
NURSE NOTES: Report received from Quintin Villalobos and Quintin Manzano RN. Pt is resting in bed in stable condition. Pt is awake, alert, and oriented x3-4. Pt is on 2L O2 and pt is slightly short of breath. Respiratory and O2 saturation noted to be WNL. Pt IV sites are R FA #20g and L wrist #22g and both are asymptomatic patent and intact. IV fluids are running at rx rate through R FA #20g. Sanon is patent and draining to gravity - yellow urine noted in drainage bag. Bed is placed in lowest position with brake engaged, side rails up x3, and bed alarm on. Fall precautions noted to be in place - yellow socks, bed low and locked, patient fall education provided. Patient advised to use call light prior to attempting to get out of bed. Pt agreeable and verbalized understanding. Call light and side table placed within reach. Will continue to monitor.
--- NOTE | 2019-02-08 19:25 | NUR ---
HAND-OFF: Report given to MARICEL Andrade. The patient was resting on bed without acute distress or shortness of breath. The patient's bed is in the lowest position, call light in reach, and fall and aspiration precaution reinforced. Endoresed plan of care.
[2019-02-08 20:00] VITALS: BP 102/74
--- NOTE | 2019-02-08 20:36 | General Progress Note ---
Assessment/Plan Assessment/Plan: GI CONSULT Dictated Assessment - Dysphagia, failed swallow evaluation - COPD, s/p resp failure - Anemia - Abnormal LFT Recommendations - NPO - IVF - PEG in am Discussed with niece Thank you Chavez Fenton MD Subjective Allergies: Coded Allergies: No Known Allergies (Unverified , 02/10/18) UNABLE TO ASSESS (Unverified , 02/03/19) Objective Last 24 Hour Vital Signs Date Time Temp Pulse Resp B/P (MAP) Pulse Ox O2 Delivery O2 Flow Rate FiO2 02/08/19 19:26 93 20 98 Nasal Cannula 2.0 28 02/08/19 19:14 93 20 97 Nasal Cannula 2.0 28 02/08/19 19:14 Nasal Cannula 2.0 28 02/08/19 19:13 96 Nasal Cannula 2.0 28 02/08/19 16:00 97.2 109 24 154/83 (106) 95 02/08/19 16:00 93 02/08/19 15:37 92 20 99 Nasal Cannula 2.0 28 02/08/19 15:29 89 22 98 Nasal Cannula 2.0 28 02/08/19 12:00 97.2 109 24 144/93 (110) 96 02/08/19 12:00 108 02/08/19 10:43 100 22 98 Nasal Cannula 2.0 28 02/08/19 10:33 91 23 97 Nasal Cannula 2.0 28 02/08/19 09:00 Nasal Cannula 2.0 Nasal Cannula 2.0 02/08/19 08:00 99 02/08/19 08:00 97.2 96 21 142/72 (95) 96 02/08/19 07:14 87 22 98 Nasal Cannula 2.0 28 02/08/19 07:03 86 21 96 Nasal Cannula 2.0 28 02/08/19 07:02 Nasal Cannula 2.0 28 02/08/19 07:02 96 Nasal Cannula 2.0 28 02/08/19 04:00 86 02/08/19 04:00 98.1 95 17 136/79 (98) 92 02/08/19 03:13 Nasal Cannula 2.0 28 02/08/19 03:12 Nasal Cannula 2.0 28 02/08/19 00:00 100 02/08/19 00:00 98.3 109 19 131/72 (91) 94 02/07/19 23:38 89 22 97 Nasal Cannula 2.0 28 02/07/19 23:28 87 22 96 Nasal Cannula 2.0 28 02/07/19 21:00 Nasal Cannula 2.0 Nasal Cannula 2.0 Intake and Output 02/07/19 02/08/19 19:00 07:00 Intake Total 521 ml 500 ml Output Total 1030 ml 600 ml Balance -509 ml -100 ml IV Total 521 ml 500 ml Output Urine Total 1030 ml 600 ml Laboratory Tests 02/08/19 05:35: White Blood Count 16.4H, Red Blood Count 3.14L, Hemoglobin 9.8L, Hematocrit 29.0L, Mean Corpuscular Volume 92, Mean Corpuscular Hemoglobin 31.2H, Mean Corpuscular Hemoglobin Concent 33.8, Red Cell Distribution Width 13.3, Platelet Count 181, Mean Platelet Volume 7.7, Neutrophils (%) (Auto) , Lymphocytes (%) ( Auto) , Monocytes (%) (Auto) , Eosinophils (%) (Auto) , Basophils (%) (Auto) , Differential Total Cells Counted 100, Neutrophils % (Manual) 92H, Lymphocytes % (Manual) 5L, Monocytes % (Manual) 3, Eosinophils % (Manual) 0, Basophils % ( Manual) 0, Band Neutrophils 0, Platelet Estimate Adequate, Platelet Morphology Normal, Red Blood Cell Morphology Normal, Sodium Level 149H, Potassium Level 3.8 , Chloride Level 114H, Carbon Dioxide Level 23, Anion Gap 12, Blood Urea Nitrogen 30H, Creatinine 1.1, Estimat Glomerular Filtration Rate , Glucose Level 127H, Calcium Level 8.4L, Magnesium Level 1.7L, Total Bilirubin 0.9, Aspartate Amino Transf (AST/SGOT) 128H, Alanine Aminotransferase (ALT/SGPT) 110H , Alkaline Phosphatase 97, Pro-B-Type Natriuretic Peptide 85368B, Total Protein 5.8L, Albumin 2.2L, Globulin 3.6, Albumin/Globulin Ratio 0.6L Height (Feet): 5 Height (Inches): 6.00 Weight (Pounds): 147 Chavez Fenton MD February 08, 2019 20:36
[2019-02-08] MEDS ORDERED: Ciprofloxacin 500mg tab NG SCH (21:00)
--- NOTE | 2019-02-08 21:15 | NUR ---
NURSE NOTES: MD Dowling contacted regarding Cipro 500mg NG order. Pt does not have NG tube and placement was failed x2 today. Per MD Dowling, contact pharmacy and change order to equivalent dosage via route IV. Will contact pharmacy regarding dosage.
--- NOTE | 2019-02-08 21:20 | NUR ---
NURSE NOTES: Order noted per MD Fenton to obtain consent from sushila (Gloria Rivas) for endoscopy w/ PEG placement scheduled for 02/09. Call placed to rubia to obtain consent over the phone. Phone consent signed and witnessed with James Briceno RN. Consent placed in chart.
--- NOTE | 2019-02-08 21:30 | NUR ---
NURSE NOTES: MD Fenton made aware that rubia Castro consented to procedure on 02/09 and that consent was signed and placed in the chart. No other new orders per MD Fenton. Procedure time estimated to be on 02/09 between 0700 and 0900.
--- NOTE | 2019-02-08 21:35 | NUR ---
NURSE NOTES: Spoke with Oma in pharmacy regarding equivalent cipro dosage via IV. Per Oma, equivalent is 400mg IV Q8HR. MD Nitesh stanford with order. Orders noted and carried out.
--- NOTE | 2019-02-08 21:40 | NUR ---
NURSE NOTES: Gloria Alvarado, updated with estimated time of procedure for 02/09. Verbalized understanding and stated that she will be in to see patient tomorrow AM.
[2019-02-08] MEDS: Pantoprazole Inj IVP SCH (21:59)
[2019-02-09] VITALS (11 sets, daily range): BP systolic 131–150; BP diastolic 66–83
--- NOTE | 2019-02-09 01:07 | Cardiology Report ---
APPROVED REPORT EKG Measurement Heart [id number] MD [id number] Sinus tachycardia with premature supraventricular complexes and with frequent premature ventricular complexes Inferior infarct, age undetermined Abnormal ECG
--- NOTE | 2019-02-09 03:30 | Consultation ---
DATE OF CONSULTATION: 02/08/2019 GASTROENTEROLOGY CONSULTATION CONSULTING PHYSICIAN: Chavez Fenton M.D. CHIEF COMPLAINT: I was asked to see this patient by Dr. Olegario Dowling for evaluation of abnormal liver tests and gastrostomy tube placement. HISTORY OF PRESENT ILLNESS: The patient is an unfortunate 88-year-old man with a longstanding history of COPD who came in to the hospital with shortness of breath and respiratory failure. Initial attempts to placing the BiPAP failed and the patient was intubated and taken to ICU. Subsequently, he was given more pulmonary toileting and he was able to be extubated. However, he failed his swallow study on the floor and attempts at nasogastric tube feeding has been failed. The patient is being planned to be discharged to the longterm and therefore this gastrostomy tube consultation was obtained to place the feeding tube in order to facilitate feeding on discharge. The indications, risks, alternatives, and possible complications of the feeding tube placement were explained to the patient's niece and informed consent was obtained. The patient himself is weak, debilitated, and unable to give any consent at this time. PAST MEDICAL HISTORY: History of COPD, respiratory failure, renal failure, and anemia, which is current. FAMILY HISTORY: Noncontributory. SOCIAL HISTORY: The patient was active and independent until recently, but the current hospitalization has made him quite debilitated. His niece by name of Gloria looks after his affairs. REVIEW OF SYSTEMS: Unobtainable. MEDICATIONS: See chart list for details. PHYSICAL EXAMINATION: GENERAL: Debilitated man, seen in his room. HEENT: Normocephalic and atraumatic. Sclerae anicteric. Oropharynx clear. NECK: Supple. CHEST: Scattered rhonchi and coarse breath sounds. CARDIOVASCULAR: Revealed regular rate. ABDOMEN: Soft. Flat. Good bowel sounds. EXTREMITIES: Revealed trace edema. LABORATORY DATA: Laboratory data and imaging studies were noted. ASSESSMENT: This patient has a longstanding history of COPD and has recurrent respiratory failure requiring intubation and mechanical ventilation. This process has made him quite debilitated. He is unable to eat safely. Attempts are being made to plan for discharge to longterm and nasogastric tube placement failed. The gastrostomy tube therefore will be placed to facilitate feeding on discharge. The niece understands that this will likely be temporary, and once the patient's strength and swallow function returns, then the gastrostomy tube will be conceivably removed. RECOMMENDATIONS: 1. Keep the patient NPO. 2. Gastrostomy tube placement tomorrow. 3. Workup of liver tests including hepatitis serologies and liver imaging after gastrostomy tube placement. Thank you for asking me to participate in the care of this patient. Chavez Fenton M.D. DR: ITZEL JOB#: [id number] CC: RACH
[2019-02-09] MEDS ORDERED: Albuterol/Ipratropium 3ml neb HHN PRN (03:45)
--- NOTE | 2019-02-09 04:45 | Progress Note ---
DATE: 02/08/2019 CARDIOLOGY PROGRESS NOTE SUBJECTIVE: The patient failed a swallow evaluation. Feeding tube is planned. OBJECTIVE: VITAL SIGNS: Blood pressure 154/83, pulse 109, respirations 24, and afebrile. LUNGS: Bilateral breath sounds. Few rhonchi. HEART: Regular rhythm and rate. Normal S1, S2. ABDOMEN: Soft. EXTREMITIES: Trace edema. LABORATORY DATA: White count 16 and hemoglobin 9.8. Sodium 149, potassium 3.8, bicarb 23, BUN 30, and creatinine 1.1. Magnesium 1.7. Albumin 2.2. Pro-natriuretic peptide is 10,000. IMPRESSION: 1. Dysphagia. 2. Healthcare-acquired pneumonia. 3. Dehydration. 4. Hypernatremia. 5. Hypomagnesemia. 6. Acute on chronic diastolic congestive heart failure. 7. Chronic obstructive pulmonary disease exacerbation. 8. Resolved lactic acidosis. 9. Gram-negative pneumonia with Serratia. PLAN: 1. Antimicrobials. 2. Respiratory hygiene. 3. Stable for PEG from cardiovascular standpoint. 4. Continue free water replacement. 5. Monitor electrolytes. 6. No diuresis at this time. Gee Davey M.D. DR: RENETTA JOB#: [id number] CC:
[2019-02-09] MEDS: Nystatin Susp 500,000 units/5ml NG SCH ×2 (05:55)
[2019-02-09] MEDS: NovoLOG Insulin Flexpen SUBQ SCH ×4 (06:05→21:00)
--- NOTE | 2019-02-09 06:41 | NUR ---
NURSE NOTES: Spoke with Darin from GI lab to give report on pt going for Endoscopy w/ PEG placement today 02/09. Consent signed over the phone by Gloria barkley. Pt A+Ox3, on 2L nasal cannula, IV sites are asymptomatic patent and intact, thompson patent and draining to gravity. Per Darin, PT/PTT STAT were ordered to ensure coagulation panels are within normal limits prior to procedure. electrocardiograph technician in room now to draw. Estimated time for pick-up from floor is 0815 and procedure should be around 0830 - 0900.
[2019-02-09] MEDS: Albuterol/Ipratropium 3ml neb HHN SCH ×5 (07:09→23:20)
[2019-02-09 07:10] LABS: INR 1.3 (0.9-1.1)
--- NOTE | 2019-02-09 07:15 | NUR ---
HAND-OFF: Report given to Quintin Villalobos RN and Quintin Manzano RN. Pt is resting in bed in stable condition, receiving breathing treatment with RT at bedside. No acute distress noted. Endorsed plan of care.
--- NOTE | 2019-02-09 07:16 | NUR ---
NURSE NOTES: Received report from MARICEL Andrade. The patient is planned for G-Tube placement today. The patient denies of acute distress or shortness of breath. The patient's bed is in the lowest position, call light in reach, and fall and aspiration precaution reinforced. Will continue plan of care.
[2019-02-09] MEDS ORDERED: ceFAZolin sod 1 GM in D5W 55 ML IVPB ONE (07:30)
--- NOTE | 2019-02-09 08:14 | Cardiology Report ---
APPROVED REPORT EXAM: Two-dimensional and M-mode echocardiogram with Doppler and color Doppler. INDICATION Tachycardia M-Mode DIMENSIONS IVSd1.1 (0.7-1.1cm)Left Atrium (MM)2.7 (1.6-4.0cm) LVDd4.7 (3.5-5.6cm)Aortic Root2.9 (2.0-3.7cm) PWd1.2 (0.7-1.1cm)Aortic Cusp Exc.2.0 (1.5-2.0cm) LVDs3.3 (2.5-4.0cm) PWs1.7 cm Normal left ventricular chamber size. Mild hypokinesis of inferoseptal and inferor wall. Left ventricular ejection fraction estimated to be 45 %. Moderate left ventricular hypertrophy with prominent basal septum. Anterior Echo-free space, may be due to pericardial fat or effusion. All other cardiac chamber sizes are within normal limits. Focal aortic valve sclerosis with adequate cusp excursion. Thickened mitral valve leaflets with normal excursion. Mitral annulus and aortic root calcification. Pulmonic valve not well visualized. Normal tricuspid valve structure. IVC at normal size with physiologic collapse. A color flow and spectral Doppler study was performed and revealed: Mild aortic regurgitation. Trace to mild mitral regurgitation. Mitral diastolic velocities suggest reduced left ventricular relaxation c/w mild LV diastolic dysfunction (Grade I). Mild tricuspid regurgitation. Tricuspid systolic velocities suggests peak right ventricular systolic pressure of 45 mmHg, consistent with borderline moderate pulmonary hypertension.
[2019-02-09] MEDS: Solu-MEDROL 40mg Inj IVP SCH ×2 (08:15→21:28)
[2019-02-09] MEDS: 1/2NS w/KCl 20mEq 1000ml 1,000 ML IV SCH ×2 (08:15→18:16)
--- NOTE | 2019-02-09 08:23 | Pulmonology Progress Note ---
Assessment/Plan Assessment/Plan respiratory failure COPD leukocytosis likely due to steroids WILTON PLAN GT reduce steroids Cipro feeds; placement avoid positive fluid balance needs snf- patient aware impression, plan, and exam edited and reviewed in detail care discussed with RN Subjective ROS Limited/Unobtainable: Yes Allergies: Coded Allergies: No Known Allergies (Unverified , 02/10/18) UNABLE TO ASSESS (Unverified , 02/03/19) Subjective care noted and reviewed d/w family agrees to GT and snf Objective Last 24 Hour Vital Signs Date Time Temp Pulse Resp B/P (MAP) Pulse Ox O2 Delivery O2 Flow Rate FiO2 02/09/19 07:19 86 21 99 Nasal Cannula 2.0 28 02/09/19 07:09 86 21 99 Nasal Cannula 2.0 28 02/09/19 07:09 99 Nasal Cannula 2.0 28 02/09/19 07:09 Nasal Cannula 2.0 28 02/09/19 05:40 91 20 Nasal Cannula 2.0 28 02/09/19 04:00 85 02/09/19 04:00 97.8 89 24 131/72 (91) 96 02/09/19 03:10 Nasal Cannula 2.0 28 02/09/19 03:10 Nasal Cannula 2.0 28 02/09/19 00:09 88 20 99 Nasal Cannula 2.0 28 02/09/19 00:00 97.8 96 24 137/69 (91) 99 02/09/19 00:00 82 02/08/19 23:56 88 20 98 Nasal Cannula 2.0 28 02/08/19 21:00 Nasal Cannula 2.0 Nasal Cannula 2.0 02/08/19 20:00 94 02/08/19 20:00 97.9 98 20 102/74 (83) 99 02/08/19 19:26 93 20 98 Nasal Cannula 2.0 28 02/08/19 19:14 93 20 97 Nasal Cannula 2.0 28 02/08/19 19:14 Nasal Cannula 2.0 28 02/08/19 19:13 96 Nasal Cannula 2.0 28 02/08/19 16:00 97.2 109 24 154/83 (106) 95 02/08/19 16:00 93 02/08/19 15:37 92 20 99 Nasal Cannula 2.0 28 02/08/19 15:29 89 22 98 Nasal Cannula 2.0 28 02/08/19 12:00 97.2 109 24 144/93 (110) 96 02/08/19 12:00 108 02/08/19 10:43 100 22 98 Nasal Cannula 2.0 28 02/08/19 10:33 91 23 97 Nasal Cannula 2.0 28 02/08/19 09:00 Nasal Cannula 2.0 Nasal Cannula 2.0 Intake and Output 02/08/19 02/09/19 19:00 07:00 Intake Total 1253.3 ml Output Total 300 ml 900 ml Balance 953.3 ml -900 ml IV Total 1253.3 ml Output Urine Total 300 ml 900 ml Objective WDWN NAD altered reduced breath sounds bilaterally without rhonchi or wheeze [id number] without MRG NABS nontender no HSM no CCE nonfocal Laboratory Tests 02/09/19 06:48: Prothrombin Time 13.4H, Prothromb Time International Ratio 1.3H, Activated Partial Thromboplast Time 33 Current Medications Medications (Trade) Dose Ordered Sig/Malik Route PRN Reason Start Time Stop Time Status Last Admin Dose Admin Acetaminophen (Tylenol) 650 mg Q4H PRN ORAL Mild Pain/Temp > 100.5 02/07/19 15:00 03/06/19 14:59 Albuterol/ Ipratropium (Albuterol/ Ipratropium) 3 ml Q4H PRN HHN Shortness of Breath 02/09/19 03:45 02/14/19 03:44 Albuterol/ Ipratropium (Albuterol/ Ipratropium) 3 ml Q4HRT HHN 02/09/19 07:00 02/14/19 06:59 02/09/19 07:09 Aspirin (ASA) 81 mg DAILY NG 02/09/19 09:00 03/06/19 08:59 Ciprofloxacin 200 ml @ 200 mls/hr Q8HR IV 02/08/19 22:00 02/15/19 21:59 02/09/19 05:56 Dextrose (Dextrose 50%) 25 ml Q30M PRN IV Hypoglycemia 02/07/19 14:00 03/06/19 00:29 Dextrose (Dextrose 50%) 50 ml Q30M PRN IV Hypoglycemia 02/07/19 14:00 03/06/19 00:29 Heparin Sodium (Porcine) (Heparin 5000 units/ml) 5,000 units EVERY 12 HOURS SUBQ 02/07/19 21:00 03/06/19 00:00 02/08/19 09:20 Hydralazine HCl (Apresoline) 10 mg Q6H PRN IV FOR SBP>180 02/07/19 15:00 03/06/19 14:59 Insulin Aspart (NovoLOG) BEFORE MEALS AND HS SUBQ 02/07/19 16:30 03/06/19 06:29 Methylprednisolone Sodium Succinate (Solu-MEDROL) 30 mg Q12HR IVP 02/07/19 21:00 03/08/19 08:59 02/09/19 08:15 Nystatin (Nystatin) 5 ml Q6HR NG 02/08/19 13:00 02/15/19 12:59 Ondansetron HCl (Zofran) 4 mg Q8H PRN IVP Nausea & Vomiting 02/07/19 14:30 03/06/19 14:29 Pantoprazole (Protonix) 40 mg Q24H IVP 02/08/19 21:00 03/06/19 20:59 02/08/19 21:59 Phosphorus (Phospha 250 Neutral) 250 mg THREE TIMES A DAY NG 02/08/19 13:30 03/10/19 13:29 Sodium 1,000 ml @ 100 mls/hr Q10H IV 02/08/19 02:00 03/10/19 01:59 02/09/19 08:15 Olegario Dowling MD February 09, 2019 08:23
[2019-02-09] MEDS: Phospha 250 Neutral tab NG SCH (08:24)
[2019-02-09] MEDS: Heparin 5000 units/ml inj SUBQ SCH ×2 (08:28→21:33)
--- NOTE | 2019-02-09 08:28 | General Progress Note ---
Assessment/Plan Assessment/Plan: Assessment - Dysphagia, failed swallow evaluation - COPD, s/p resp failure - Anemia - Abnormal LFT Recommendations - NPO - IVF - PEG today - f/u liver serologies - abd ultrasound after PEG Subjective Allergies: Coded Allergies: No Known Allergies (Unverified , 02/10/18) UNABLE TO ASSESS (Unverified , 02/03/19) Subjective above noted patient awake no issues overnight d/w niece again this am advised patient failed VSS yesterday, but that he may improve and pass next week or so niece agreed to proceed with PEG for short term use Objective Last 24 Hour Vital Signs Date Time Temp Pulse Resp B/P (MAP) Pulse Ox O2 Delivery O2 Flow Rate FiO2 02/09/19 07:19 86 21 99 Nasal Cannula 2.0 28 02/09/19 07:09 86 21 99 Nasal Cannula 2.0 28 02/09/19 07:09 99 Nasal Cannula 2.0 28 02/09/19 07:09 Nasal Cannula 2.0 28 02/09/19 05:40 91 20 Nasal Cannula 2.0 28 02/09/19 04:00 85 02/09/19 04:00 97.8 89 24 131/72 (91) 96 02/09/19 03:10 Nasal Cannula 2.0 28 02/09/19 03:10 Nasal Cannula 2.0 28 02/09/19 00:09 88 20 99 Nasal Cannula 2.0 28 02/09/19 00:00 97.8 96 24 137/69 (91) 99 02/09/19 00:00 82 02/08/19 23:56 88 20 98 Nasal Cannula 2.0 28 02/08/19 21:00 Nasal Cannula 2.0 Nasal Cannula 2.0 02/08/19 20:00 94 02/08/19 20:00 97.9 98 20 102/74 (83) 99 02/08/19 19:26 93 20 98 Nasal Cannula 2.0 28 02/08/19 19:14 93 20 97 Nasal Cannula 2.0 28 02/08/19 19:14 Nasal Cannula 2.0 28 02/08/19 19:13 96 Nasal Cannula 2.0 28 02/08/19 16:00 97.2 109 24 154/83 (106) 95 02/08/19 16:00 93 02/08/19 15:37 92 20 99 Nasal Cannula 2.0 28 02/08/19 15:29 89 22 98 Nasal Cannula 2.0 28 02/08/19 12:00 97.2 109 24 144/93 (110) 96 02/08/19 12:00 108 02/08/19 10:43 100 22 98 Nasal Cannula 2.0 28 02/08/19 10:33 91 23 97 Nasal Cannula 2.0 28 02/08/19 09:00 Nasal Cannula 2.0 Nasal Cannula 2.0 Intake and Output 02/08/19 02/09/19 19:00 07:00 Intake Total 1253.3 ml Output Total 300 ml 900 ml Balance 953.3 ml -900 ml IV Total 1253.3 ml Output Urine Total 300 ml 900 ml Laboratory Tests 02/09/19 06:48: Prothrombin Time 13.4H, Prothromb Time International Ratio 1.3H, Activated Partial Thromboplast Time 33 Height (Feet): 5 Height (Inches): 4.00 Weight (Pounds): 147 Objective Weak , frail elderly man NCAT supple Chest: scattered ronchi RR abd soft ND NT no edema Chavez Fenton MD February 09, 2019 08:28
[2019-02-09] MEDS ORDERED: Aspirin Baby 81mg NG SCH (09:00)
[2019-02-09] MEDS ORDERED: Lidocaine 1% MPF 10mg/ml 5ml ONE (09:30)
[2019-02-09] MEDS ORDERED: Propofol 200mg/20ml IV ONE (09:30)
--- NOTE | 2019-02-09 09:49 | Anethesia Preoperative Eval ---
Anesthesia Pre-op PMH/ROS General Date of Evaluation: February 09, 2019 Anesthesiologist: Arun ASA Score: ASA 3 Mallampati Score Class I : Soft palate, uvula, fauces, pillars visible Class II: Soft palate, uvula, fauces visible Class III: Soft palate, base of uvula visible Class IV: Only hard plate visible Mallampati Classification: Class III Surgeon: Eliceo Diagnosis: Dysphagia Surgical Procedure: EGD and PEG Anesthesia History: none Family History: no anesthesia problems Allergies: Coded Allergies: No Known Allergies (Unverified , 02/10/18) UNABLE TO ASSESS (Unverified , 02/03/19) Medications: see eMAR Patient NPO?: Yes NPO Date: February 08, 2019 NPO Time: 00:00 Past Medical History Cardiovascular: Reports: HTN; Denies: CAD, OR, valve dz, arrhythmia, other Pulmonary: Reports: COPD; Denies: asthma, MYKEL, other Gastrointestinal/Genitourinary: Reports: other - prostate cancer; Denies: GERD, CRI, ESRD Neurologic/Psychiatric: Denies: dementia, CVA, depression/anxiety, TIA, other Endocrine: Denies: DM, hypothyroidism, steroids, other HEENT: Denies: cataract (L), cataract (R), glaucoma, [place]AND (L), [place]-E-[place]AND (R), other Hematology/Immune: Reports: anemia - chronic; Denies: DVT, bleeding disorder, other Musculoskeletal/Integumentary: Reports: OA; Denies: RA, DJD, DDD, edema, other PSxH Narrative: TURP Anesthesia Pre-op Phys. Exam Physician Exam Last Vital Signs Date Time Temp Pulse Resp B/P (MAP) Pulse Ox O2 Delivery O2 Flow Rate FiO2 02/09/19 09:00 Nasal Cannula 2.0 Nasal Cannula 2.0 02/09/19 08:00 97.5 93 22 133/66 (88) 93 02/09/19 07:19 28 Constitutional: NAD Cardiovascular: RRR Respiratory: other - tachypneic Airway Exam Mallampati Score: Class III MO: limited ROM: limited Anesthesia Pre-op A/P Labs Coagulation Test 02/09/19 06:48 Prothrombin Time 13.4 SEC (9.30-11.50) H Prothromb Time International Ratio 1.3 (0.9-1.1) H Activated Partial Thromboplast Time 33 SEC (23-33) Studies Pre-op Studies: EKG - nsr Risk Assessment & Plan Assessment: ASA III Plan: MAC Status Change Before Surgery: No Pre-Antibiotics Drug: N/A Madeleine Parkinson MD February 09, 2019 09:49
--- NOTE | 2019-02-09 10:02 | Immediate Post-Op Evaluation ---
Immediate Post-Op Evalulation Immediate Post-Op Evalulation Procedure: EGD and PEG Date of Evaluation: February 09, 2019 Time of Evaluation: 10:01 IV Fluids: 200 Blood Products: 0 Estimated Blood Loss: 0 Urinary Output: 0 Blood Pressure Systolic: 137 Blood Pressure Diastolic: 81 Pulse Rate: 85 Respiratory Rate: 20 O2 Sat by Pulse Oximetry: 100 Temperature (Fahrenheit): 97.3 Pain Score (1-10): 0 Nausea: No Vomiting: No Complications 0 Patient Status: awake, reacts, patent, none Hydration Status: adequate Drug: N/A Madeleine Parkinson MD February 09, 2019 10:02
--- NOTE | 2019-02-09 10:03 | 48 Hour Post Anesthesia Eval ---
Post Anesthesia Evaluation Procedure: EGD and PEG Date of Evaluation: February 09, 2019 Airway: patent Nausea: No Vomiting: No Pain Intensity: 0 Hydration Status: adequate Cardiopulmonary Status: at baseline Mental Status/LOC: patient returned to baseline Post-Anesthesia Complications: 0 Follow-up care needed: ready to discharge Madeleine Parkinson MD February 09, 2019 10:03
--- NOTE | 2019-02-09 10:47 | NUR ---
NURSE NOTES: Received report from Nancy. PEG placement completed and okay to use PEG tube only for medication only today. May start tube feeding from tomorrow. The patient denies of acute distress or shortness of breath. IV reconnected and applied telemonitoring on. The patient's vital signs are stable. Will continue plan of care.
[2019-02-09] MEDS: Nystatin Susp 500,000 units/5ml GT SCH ×2 (12:17→18:15)
--- NOTE | 2019-02-09 13:17 | NUR ---
*-* INSURANCE *-* UPDATED CLINICALS HAVE BEEN FAXED TO; [facility] P: [phone] F: [phone]
[2019-02-09] MEDS: Phospha 250 Neutral tab GT SCH ×2 (13:34→18:16)
--- NOTE | 2019-02-09 14:30 | Diagnostic Imaging Report ---
Indication:Abdominal pain Technique: Grayscale and duplex Doppler imaging of the abdomen performed. Comparison: None Findings: The liver is unremarkable. Large gallstone noted. Pancreas, aorta not well seen. CBD is 6 mm. Kidneys are partially obscured and grossly negative. There may be a cyst in the left kidney measuring about 1 cm. The spleen is normal in size. There is no biliary ductal dilatation identified. Doppler evaluation of the main portal vein shows patency. There is no ascites. No hydronephrosis seen. Impression: Cholelithiasis Limited evaluation
--- NOTE | 2019-02-09 14:48 | NUR ---
RD ASSESSMENT & RECOMMENDATIONS SEE CARE ACTIVITY FOR COMPLETE ASSESSMENT DAILY ESTIMATED NEEDS: Needs based on Pulmonary, Cardiac/ 62.7kg 25-30 kcals/kg 9163-3619 total kcals 1-1.5 g protein/kg 63-94 g total protein 20-25 mL/kg 9220-5890 total fluid mLs NUTRITION DIAGNOSIS: * Swallowing difficulty R/T respiratory status, dysphagia as evidenced by now extubated, s/p PEG placement, NPO at this time. * Altered nutrition related lab values R/T clinical condition as evidenced by low K (2.6-> wnl), elev creat (now wnl), elev FBGs (127 173 157) and POC glu (114-146), pt on solumedrol, elev BNP (72842). CURRENT DIET:NPO PO DIET RECOMMENDATIONS: IF SAFE FOR PO-> CCHO MED, LOW NA/ texture per FRONT END DRUPAL DEVELOPER ENTERAL NUTRITION RECOMMENDATIONS: Glucerna 1.5 @ 48ml/hr x 24 hrs to provide 1152ml, 1728kcal, 95g prot, 874ml free water * Initiate Glucerna 1.5 SLOWLY @ 18ml/hr x 6 hrs * Advance 10ml q 6-8 hrs as tolerated to goal rate. * HOB over 30 degrees/ water flush per MD ADDITIONAL RECOMMENDATIONS: * Calibrated bedscale wt for accurate CBW * Monitor lytes daily, replete as needed - pt at HIGH RISK for refeeding syndrome * Monitor BGs closely while on solumedrol * A1C for eval of glycemic control * Monitor FRONT END DRUPAL DEVELOPER rec regarding oral feeds, need to adjust TF
[2019-02-09] MEDS ORDERED: D5NS 1000ml IV ONE ×2 (16:41→16:43)
[2019-02-09] MEDS ORDERED: NS 275ml ONE (16:43)
--- NOTE | 2019-02-09 16:59 | NUR ---
CASE MANAGEMENT REVIEW SI:RESPIRATORY FAILURE . LEUKOCYTOSIS VS: BP 150/79, P 92, T 97.2, RR 23,SpO2 92 on NC 2.0 L O2 PT 13.4, INR 1.[address]: CHOLELITHIASIS IS:PHOSPHORUS 250mg NYSTATIN 5ml CEFAZOLIN SODIUM 55ML ALBUTEROL 3ml HHN CIPROFLOXACIN 200ml IV SODIUM x1L IV SOLU-MEDROL 30mg IVP S/P EXTUBATION 02/06 TELE STATUS
--- NOTE | 2019-02-09 17:02 | NUR ---
STAFF MIDWIFE/APPRENTICESHIP DIRECTOR NOTES CLINICALS [facility] [place] [facility] [address] [facility]. WILL FOLLOW UP.
--- NOTE | 2019-02-09 17:15 | Procedure Note ---
DATE OF PROCEDURE: 02/09/2019 PROCEDURE: Upper gastrointestinal endoscopy with gastrostomy tube placement. SURGEON: Chavez Fenton M.D. ANESTHESIA: Please see the separate anesthesiologist notes for details. PRE-ENDOSCOPIC DIAGNOSIS: Dysphagia. POST-ENDOSCOPIC DIAGNOSES: Normal upper endoscopy status gastrostomy tube placement. DESCRIPTION OF PROCEDURE: The procedure, its risks, indications, alternatives, and possible complications including but not limited to bleeding, infection, perforation, , and anesthesia complications were explained to the patient's niece and informed consent was obtained. The patient was then sedated in the left lateral decubitus position. A diagnostic upper endoscope was introduced through oropharynx and advanced to the duodenum without difficulty. The endoscope was then gradually withdrawn. The mucosa examined carefully. Examination of the upper gastrointestinal mucosa did not reveal any abnormalities. A location for placement of the gastrostomy tube was identified by palpation and transillumination techniques. The outside skin was sterilely prepared, anesthetized, incised and the trocar needle was used to place the gastrostomy tube using the standard pull technique. The patient was left to recovery in good condition. It should be noted that the upper airway had significant degree of inspissated mucus that had to be suctioned away both by Yankauer catheter and by the endoscope; therefore, oral hygiene and suction will be advised to the nursing staff. RECOMMENDATIONS: 1. Observe overnight. 2. Begin tube feedings tomorrow. 3. Oral hygiene instruction four times daily to maintain airway clearance. Chavez Fenton M.D. DR: Bharti JOB#: [id number] CC: RACH
--- NOTE | 2019-02-09 17:40 | Cardiology Report ---
APPROVED REPORT EKG Measurement Heart [id number] Normal sinus rhythm Possible Inferior infarct, age undetermined Abnormal ECG
--- NOTE | 2019-02-09 19:38 | NUR ---
HAND-OFF: Report given to MARICEL Hoffman. Endorsed plan of care.
--- NOTE | 2019-02-09 19:40 | NUR ---
NURSE NOTES: received pt in stable condition. pt NPO. no acute distress noted. safety precautions in place. bed locked and call light within reach. will round hourly to ensure pt's safety.
[2019-02-09] MEDS: Pantoprazole Inj IVP SCH (21:00)
[2019-02-10] VITALS: BP 139/72
--- NOTE | 2019-02-10 | NUR ---
NURSE NOTES: pt sleeping. no s/s of acute distress. safety measures in place. will continue to monitor
[2019-02-10] MEDS: Nystatin Susp 500,000 units/5ml GT SCH ×4 (00:27→17:23)
[2019-02-10] MEDS: 1/2NS w/KCl 20mEq 1000ml 1,000 ML IV SCH ×2 (02:11→13:38)
[2019-02-10] MEDS: Albuterol/Ipratropium 3ml neb HHN SCH ×6 (03:23→23:07)
[2019-02-10 04:00] VITALS: BP 140/77
--- NOTE | 2019-02-10 05:00 | Progress Note ---
CARDIOLOGY PROGRESS NOTE DATE: 02/09/2019 SUBJECTIVE: The patient is status post uncomplicated G-tube placement today with no abnormal findings on endoscopy. OBJECTIVE: VITAL SIGNS: Blood pressure 134/68, pulse 87, and respirations 23. Oxygen saturation on 2 L 94% to 95%. LUNGS: Bilateral breath sounds. CARDIAC: Regular rhythm and rate. Normal S1, S2. ABDOMEN: Soft, slightly distended. G-tube intact. EXTREMITIES: No edema. LABORATORY DATA: No new labs today. IMPRESSION: 1. Status post G-tube for dysphagia. 2. Dehydration. 3. Hyponatremia. 4. Hypomagnesemia. 5. Severe protein-calorie malnutrition. 6. Acute on chronic diastolic congestive heart failure. 7. Chronic obstructive pulmonary disease exacerbation. 8. Serratia pneumonia. PLAN: 1. Free water replacement by IV route. 2. G-tube feedings to start tomorrow per parts department manager. 3. No diuresis at this time. 4. Protein supplement to follow. 5. Antimicrobials. 6. Respiratory hygiene. 7. DVT prophylaxis. Gee Davey M.D. DR: DAYANNA JOB#: [id number] CC:
[2019-02-10] MEDS: NovoLOG Insulin Flexpen SUBQ SCH ×5 (05:47→20:31)
--- NOTE | 2019-02-10 06:57 | NUR ---
NURSE NOTES: pt remains stable, pt NPO. no acute distress or change in condition during my shift. safety precautions in place. bed locked and lowest position. call aid within reach. all needs met during my shift. will endorse care to incoming nurse.
[2019-02-10 07:03] LABS: HEMATOCRIT 29.3 % (42.0-52.0); HEMOGLOBIN 9.8 G/DL (14.2-18.0); MEAN CORPUSCULAR VOLUME 92 FL (80-99); PLATELET COUNT 222 K/UL (150-450); RED BLOOD COUNT 3.19 M/UL (4.70-6.10); RED CELL DISTRIBUTION WIDTH 12.7 % (11.6-14.8); WHITE BLOOD COUNT 10.4 K/UL (4.8-10.8)
[2019-02-10 07:14] LABS: ALANINE AMINOTRANSFERASE 132 U/L (12-78); ALBUMIN 2.1 G/DL (3.4-5.0); ALBUMIN/GLOBULIN RATIO 0.5 (1.0-2.7); ALKALINE PHOSPHATASE 91 U/L (46-116); ANION GAP 11 mmol/L (5-15); ASPARTATE AMINO TRANSFERASE 96 U/L (15-37); BILIRUBIN,TOTAL 1.1 MG/DL (0.2-1.0); BLOOD UREA NITROGEN 29 mg/dL (7-18); CALCIUM 8.3 MG/DL (8.5-10.1); CARBON DIOXIDE 20 MMOL/L (21-32); CHLORIDE 105 MMOL/L (98-107); CREATINE KINASE 55 U/L (26-308); CREATININE 1.1 MG/DL (0.55-1.30); POTASSIUM 4.3 MMOL/L (3.5-5.1); SODIUM 136 MMOL/L (136-145)
[2019-02-10 07:16] LABS: BILIRUBIN,DIRECT 0.6 MG/DL (0.0-0.3)
[2019-02-10 08:00] VITALS: BP 134/68
--- NOTE | 2019-02-10 08:10 | NUR ---
HAND-OFF: Report given to MARICEL Valderrama.
--- NOTE | 2019-02-10 08:15 | NUR ---
NURSE NOTES: Received report from Nadja CONNELLY. Pt awake watching tv in bed. Pt on front desk monitor no signs of distress at this time. Bed locked and in lowest position. Call light next to pt. Will contine plan of care.
--- NOTE | 2019-02-10 09:07 | NUR ---
[employer] SI:RESPIRATORY FAILURE . DYSPHAGIA S/P G-TUBE PLACEMENT 02/09 VS: BP 140/77, P 89, T 98.1, RR 18, SpO2 99 on NC 2.0L O2 RBC 3.19, H&H 9.8/29.3, BUN 29 IS:ALBUTEROL 3ml HHN CIPROFLOXACIN 200ml IV SODIUM 1,000ml IV HEPARIN SUBQ SOLU-MEDROL 30mg NOVOLOG SUBQ TELE STATUS
--- NOTE | 2019-02-10 09:59 | General Progress Note ---
Assessment/Plan Problem List: (1) Troponin level elevated ICD Codes: R74.8 - Abnormal levels of other serum enzymes SNOMED: 851169071, 988045421, 784958205 (2) COPD exacerbation ICD Codes: J44.1 - Chronic obstructive pulmonary disease with (acute) exacerbation; R65.20 - Severe sepsis without septic shock SNOMED: 448847897 (3) Dysphagia ICD Codes: R13.10 - Dysphagia, unspecified SNOMED: 76137328 Assessment/Plan: s/p GT placement will start GTF GT care monitor fo residuals Subjective ROS Limited/Unobtainable: No Allergies: Coded Allergies: No Known Allergies (Unverified , 02/10/18) UNABLE TO ASSESS (Unverified , 02/03/19) Objective Last 24 Hour Vital Signs Date Time Temp Pulse Resp B/P (MAP) Pulse Ox O2 Delivery O2 Flow Rate FiO2 02/10/19 08:05 82 18 99 Nasal Cannula 2.0 28 02/10/19 07:46 Nasal Cannula 2.0 28 02/10/19 07:46 80 18 96 Nasal Cannula 2.0 28 02/10/19 07:46 96 Nasal Cannula 2.0 28 02/10/19 04:00 87 02/10/19 04:00 98.1 79 18 140/77 (98) 97 02/10/19 03:33 85 18 99 Nasal Cannula 2.0 28 02/10/19 03:23 86 18 94 Nasal Cannula 2.0 28 02/10/19 00:00 97.9 89 18 139/72 (94) 97 02/10/19 00:00 84 02/09/19 23:30 79 20 99 Nasal Cannula 2.0 28 02/09/19 23:20 83 20 96 Nasal Cannula 2.0 28 02/09/19 21:00 Nasal Cannula 2.0 Nasal Cannula 2.0 02/09/19 20:00 97.7 84 18 141/71 (94) 97 02/09/19 20:00 86 02/09/19 19:33 84 20 99 Nasal Cannula 2.0 28 02/09/19 19:23 87 20 94 Nasal Cannula 2.0 28 02/09/19 19:23 94 Nasal Cannula 2.0 28 02/09/19 19:23 Nasal Cannula 2.0 28 02/09/19 16:00 81 02/09/19 16:00 97.2 87 23 134/68 (90) 87 02/09/19 15:29 83 18 95 Nasal Cannula 2.0 28 02/09/19 15:14 85 18 93 Nasal Cannula 2.0 28 02/09/19 12:00 79 02/09/19 12:00 97.6 92 23 150/79 (102) 92 02/09/19 11:52 88 20 100 Nasal Cannula 2.0 28 02/09/19 11:41 87 20 97 Nasal Cannula 2.0 28 02/09/19 10:20 97.6 83 21 145/83 97 Nasal Cannula 3 02/09/19 10:15 85 17 136/80 96 Nasal Cannula 3 02/09/19 10:05 86 18 138/77 98 Nasal Cannula 3 02/09/19 10:02 85 20 100 02/09/19 10:01 85 19 134/79 98 Nasal Cannula 3 Intake and Output 02/09/19 02/10/19 19:00 07:00 Intake Total 1400 ml 2000 ml Output Total 700 ml 720 ml Balance 700 ml 1280 ml IV Total 1400 ml 2000 ml Output Urine Total 700 ml 720 ml # Bowel Movements 1 1 Laboratory Tests 02/10/19 05:50: White Blood Count 10.4, Red Blood Count 3.19L, Hemoglobin 9.8L, Hematocrit 29.3L , Mean Corpuscular Volume 92, Mean Corpuscular Hemoglobin 30.6, Mean Corpuscular Hemoglobin Concent 33.3, Red Cell Distribution Width 12.7, Platelet Count 222, Mean Platelet Volume 7.3, Neutrophils (%) (Auto) , Lymphocytes (%) ( Auto) , Monocytes (%) (Auto) , Eosinophils (%) (Auto) , Basophils (%) (Auto) , Differential Total Cells Counted 100, Neutrophils % (Manual) 86H, Lymphocytes % (Manual) 7L, Monocytes % (Manual) 3, Eosinophils % (Manual) 0, Basophils % ( Manual) 0, Myelocytes % 1H, Band Neutrophils 3, Platelet Estimate Adequate, Platelet Morphology Normal, Polychromasia Occasional, Sodium Level 136, Potassium Level 4.3, Chloride Level 105, Carbon Dioxide Level 20L, Anion Gap 11 , Blood Urea Nitrogen 29H, Creatinine 1.1, Estimat Glomerular Filtration Rate , Glucose Level 122H, Calcium Level 8.3L, Magnesium Level 1.8, Total Bilirubin 1.1H, Direct Bilirubin 0.6H, Aspartate Amino Transf (AST/SGOT) 96H, Alanine Aminotransferase (ALT/SGPT) 132H, Alkaline Phosphatase 91, Total Creatine Kinase 55, Pro-B-Type Natriuretic Peptide 29056F, Total Protein 6.1L, Albumin 2.1L, Globulin 4.0, Albumin/Globulin Ratio 0.5L Height (Feet): 5 Height (Inches): 4.00 Weight (Pounds): 148 General Appearance: no apparent distress EENT: normal ENT inspection Neck: supple Cardiovascular: normal rate Respiratory/Chest: decreased breath sounds Abdomen: normal bowel sounds, non tender, soft Extremities: non-tender Gabriel Hammond MD February 10, 2019 09:59
[2019-02-10] MEDS: Heparin 5000 units/ml inj SUBQ SCH ×2 (10:17→21:02)
[2019-02-10] MEDS: Aspirin Baby 81mg GT SCH (10:19)
[2019-02-10] MEDS: Phospha 250 Neutral tab GT SCH ×3 (10:19→17:22)
[2019-02-10] MEDS: Solu-MEDROL 40mg Inj IVP SCH (10:19)
[2019-02-10 12:00] VITALS: BP 138/70
--- NOTE | 2019-02-10 13:30 | NUR ---
*-* INSURANCE *-* UPDATED CLINICALS AND REVIEWS HAVE BEEN FAXED TO; [facility] P: [phone] F: [phone]
--- NOTE | 2019-02-10 14:57 | NUR ---
SWALLOW/SPEECH THERAPY NOTE: SWALLOW STATUS PER RN, PATIENT MAY BE DC TO [facility] SOON. PATIENT IS ALERT AND JUST HAD PEG PLACED. EXPLAINED TO PT AND HIS NIECE (ROYCE) THAT HE SHOULD KEEP HIS MOUTH CLEAN AND NOT HAVE ANY PO INTAKE UNTIL HE HAS A MODIFIED BARIUM SWALLOW STUDY COMPLETED AN INPATIENT OR AN OUTPT (IF HE IS D/C FROM [facility]). PLAN: CONTINUE WITH ORAL CARE AND PEG FEEDINGS FOR NOW. COMPLETE MOD BARIUM SWALLOW STUDY IP OR OP IF D/C. DO NOT HOLD UP D/C FOR THIS STUDY. [facility] DOES NOT COMPLETE THESE STUDIES OUTPATIENTS AT THIS TIME. F/UP DYSPHAGIA MANAGEMENT AND TX BY DATA BASE ADMINISTRATOR AT D/C SETTING (AVOID PO TRIALS AT [facility] HE IS AT RISK FOR SILENT ASPIRATION. GOALS MET FOR STAFF/PATIENT/FAM AWARE OF ORAL CARE REQUIRED.
--- NOTE | 2019-02-10 15:47 | NUR ---
DISCHARGE PLANNING DISCHARGE ORDER NOTED Patient has been accepted to; [facility] [id number] [place] [address] Bed: 211-A Skilled for Nurse to Nurse report [facility] ETA for transportation: 16:00
[2019-02-10 16:00] VITALS: BP 137/74
--- NOTE | 2019-02-10 16:57 | Pulmonology Progress Note ---
Assessment/Plan Assessment/Plan respiratory failure COPD leukocytosis likely due to steroids WILTON PLAN GT feeds dc steroids Cipro x 1 more day SNF dc now dc fluids impression, plan, and exam edited and reviewed in detail care discussed with RN Subjective Allergies: Coded Allergies: No Known Allergies (Unverified , 02/10/18) UNABLE TO ASSESS (Unverified , 02/03/19) Subjective care noted and reviewed d/w family s/p GT Objective Last 24 Hour Vital Signs Date Time Temp Pulse Resp B/P (MAP) Pulse Ox O2 Delivery O2 Flow Rate FiO2 02/10/19 16:00 84 02/10/19 16:00 96.1 88 20 137/74 (95) 95 02/10/19 15:46 80 20 99 Nasal Cannula 2.0 28 02/10/19 15:36 83 18 94 Nasal Cannula 2.0 28 02/10/19 12:00 96.4 92 22 138/70 (92) 94 02/10/19 12:00 88 02/10/19 11:07 84 20 99 Nasal Cannula 2.0 28 02/10/19 11:00 84 18 95 Nasal Cannula 2.0 28 02/10/19 08:05 82 18 99 Nasal Cannula 2.0 28 02/10/19 08:00 96.2 84 20 134/68 (90) 95 02/10/19 08:00 83 02/10/19 07:46 Nasal Cannula 2.0 28 02/10/19 07:46 80 18 96 Nasal Cannula 2.0 28 02/10/19 07:46 96 Nasal Cannula 2.0 28 02/10/19 04:00 87 02/10/19 04:00 98.1 79 18 140/77 (98) 97 02/10/19 03:33 85 18 99 Nasal Cannula 2.0 28 02/10/19 03:23 86 18 94 Nasal Cannula 2.0 28 02/10/19 00:00 97.9 89 18 139/72 (94) 97 02/10/19 00:00 84 02/09/19 23:30 79 20 99 Nasal Cannula 2.0 28 02/09/19 23:20 83 20 96 Nasal Cannula 2.0 28 02/09/19 21:00 Nasal Cannula 2.0 Nasal Cannula 2.0 02/09/19 20:00 97.7 84 18 141/71 (94) 97 02/09/19 20:00 86 02/09/19 19:33 84 20 99 Nasal Cannula 2.0 28 02/09/19 19:23 87 20 94 Nasal Cannula 2.0 28 02/09/19 19:23 94 Nasal Cannula 2.0 28 02/09/19 19:23 Nasal Cannula 2.0 28 Intake and Output 02/09/19 02/10/19 19:00 07:00 Intake Total 1400 ml 2000 ml Output Total 700 ml 720 ml Balance 700 ml 1280 ml IV Total 1400 ml 2000 ml Output Urine Total 700 ml 720 ml # Bowel Movements 1 1 Objective WDWN NAD altered reduced breath sounds bilaterally without rhonchi or wheeze [id number] without MRG NABS nontender no HSM; GT no CCE nonfocal Laboratory Tests 02/10/19 05:50: White Blood Count 10.4, Red Blood Count 3.19L, Hemoglobin 9.8L, Hematocrit 29.3L , Mean Corpuscular Volume 92, Mean Corpuscular Hemoglobin 30.6, Mean Corpuscular Hemoglobin Concent 33.3, Red Cell Distribution Width 12.7, Platelet Count 222, Mean Platelet Volume 7.3, Neutrophils (%) (Auto) , Lymphocytes (%) ( Auto) , Monocytes (%) (Auto) , Eosinophils (%) (Auto) , Basophils (%) (Auto) , Differential Total Cells Counted 100, Neutrophils % (Manual) 86H, Lymphocytes % (Manual) 7L, Monocytes % (Manual) 3, Eosinophils % (Manual) 0, Basophils % ( Manual) 0, Myelocytes % 1H, Band Neutrophils 3, Platelet Estimate Adequate, Platelet Morphology Normal, Polychromasia Occasional, Sodium Level 136, Potassium Level 4.3, Chloride Level 105, Carbon Dioxide Level 20L, Anion Gap 11 , Blood Urea Nitrogen 29H, Creatinine 1.1, Estimat Glomerular Filtration Rate , Glucose Level 122H, Calcium Level 8.3L, Magnesium Level 1.8, Total Bilirubin 1.1H, Direct Bilirubin 0.6H, Aspartate Amino Transf (AST/SGOT) 96H, Alanine Aminotransferase (ALT/SGPT) 132H, Alkaline Phosphatase 91, Total Creatine Kinase 55, Pro-B-Type Natriuretic Peptide 13802J, Total Protein 6.1L, Albumin 2.1L, Globulin 4.0, Albumin/Globulin Ratio 0.5L Current Medications Medications (Trade) Dose Ordered Sig/Malik Route PRN Reason Start Time Stop Time Status Last Admin Dose Admin Acetaminophen (Tylenol) 650 mg Q4H PRN ORAL Mild Pain/Temp > 100.5 02/07/19 15:00 03/06/19 14:59 Albuterol/ Ipratropium (Albuterol/ Ipratropium) 3 ml Q4H PRN HHN Shortness of Breath 02/09/19 03:45 02/14/19 03:44 Albuterol/ Ipratropium (Albuterol/ Ipratropium) 3 ml Q4HRT HHN 02/09/19 07:00 02/14/19 06:59 02/10/19 15:36 Aspirin (ASA) 81 mg DAILY GT 02/10/19 09:00 03/06/19 08:59 02/10/19 10:19 Ciprofloxacin 200 ml @ 200 mls/hr Q8HR IV 02/08/19 22:00 02/15/19 21:59 02/10/19 13:37 Dextrose (Dextrose 50%) 25 ml Q30M PRN IV Hypoglycemia 02/07/19 14:00 03/06/19 00:29 Dextrose (Dextrose 50%) 50 ml Q30M PRN IV Hypoglycemia 02/07/19 14:00 03/06/19 00:29 Heparin Sodium (Porcine) (Heparin 5000 units/ml) 5,000 units EVERY 12 HOURS SUBQ 02/07/19 21:00 03/06/19 00:00 02/10/19 10:17 Hydralazine HCl (Apresoline) 10 mg Q6H PRN IV FOR SBP>180 02/07/19 15:00 03/06/19 14:59 Insulin Aspart (NovoLOG) BEFORE MEALS AND HS SUBQ 02/07/19 16:30 03/06/19 06:29 Methylprednisolone Sodium Succinate (Solu-MEDROL) 30 mg Q12HR IVP 02/07/19 21:00 03/08/19 08:59 02/10/19 10:19 Nystatin (Nystatin) 5 ml Q6HR GT 02/09/19 12:00 02/15/19 12:59 02/10/19 13:38 Ondansetron HCl (Zofran) 4 mg Q8H PRN IVP Nausea & Vomiting 02/07/19 14:30 03/06/19 14:29 Pantoprazole (Protonix) 40 mg Q24H IVP 02/08/19 21:00 03/06/19 20:59 02/09/19 21:00 Phosphorus (Phospha 250 Neutral) 250 mg THREE TIMES A DAY GT 02/09/19 13:00 03/10/19 13:29 02/10/19 13:38 Sodium 1,000 ml @ 100 mls/hr Q10H IV 02/08/19 02:00 03/10/19 01:59 02/10/19 13:38 Olegario Dowling MD February 10, 2019 16:57
--- NOTE | 2019-02-10 18:05 | NUR ---
NURSE NOTES: pt niece Gloria Meyer is refusing to have pt be discharge to go to [facility]. she wants her uncle to go to [facility], it is closest to her. Pls call niece to make any arrangements for pt to be DC tomorrow. [facility] has been cancelled for p/u and also rehav facility has been notified about changes.
--- NOTE | 2019-02-10 18:09 | NUR ---
NURSE NOTES: Spoke with Gloria Garcia. She states she wants patient to go to [facility] and not [facility]. Discharge is held. States case management is not here at 6pm. [facility] was contacted for cancelled transport. [facility] was contacted and notified tessy Harvey nurse that patient is not arriving to facility today.
--- NOTE | 2019-02-10 19:45 | NUR ---
NURSE NOTES: received pt from day shift nurse. pt in bed no s/s of distress.safety precaution in place. bed locked and lowest position, call light within reach. will make rounds hourly to ensure pt's safety.
[2019-02-10 20:00] VITALS: BP 131/66
--- NOTE | 2019-02-10 20:35 | NUR ---
HAND-OFF: Report given to Nadja CONNELLY.
[2019-02-10] MEDS: Pantoprazole Inj IVP SCH (21:02)
[2019-02-11] VITALS: BP 140/53
--- NOTE | 2019-02-11 | NUR ---
NURSE NOTES: pt in bed gtube in place. pt tolerating gtube feeding well, no residual at this time, safety precautions in place. will continue to monitor
[2019-02-11] MEDS: Nystatin Susp 500,000 units/5ml GT SCH ×4 (00:34→18:09)
[2019-02-11] MEDS: Albuterol/Ipratropium 3ml neb HHN SCH ×5 (03:12→19:00)
--- NOTE | 2019-02-11 03:30 | Progress Note ---
DATE: 02/10/2019 CARDIOLOGY PROGRESS NOTE SUBJECTIVE: The patient is status post PEG placement. No complications noted. Feedings have been started today. OBJECTIVE: VITAL SIGNS: Blood pressure 137/74, pulse 88, respiratory rate 20, and afebrile. LUNGS: Coarse breath sounds. Few rhonchi. HEART: Regular rhythm and rate. Normal S1 and S2. ABDOMEN: Soft. G-tube intact. EXTREMITIES: No edema. LABORATORY DATA: White count 10 and hemoglobin 10. Sodium 136, potassium 4.3, magnesium 1.8, bicarbonate 20, BUN 29, creatinine 1.1, pro-natriuretic peptide increasing to 12,000, and albumin 2.1. IMPRESSION: 1. Status post PEG, status post respiratory failure. 2. Dysphagia. 3. Cerebrovascular disease. 4. Acute on chronic diastolic congestive heart failure. 5. Recovered dehydration and hypernatremia. 6. Corrected hypomagnesemia. 7. Chronic obstructive pulmonary disease exacerbations. 8. Serratia pneumonia. PLAN: 1. Discontinue intravenous fluids. 2. Cautious diuresis. 3. Nutrition ____ supplement by feeding tube. 4. Respiratory hygiene. 5. DVT prophylaxis. Gee Davey M.D. DR: DUY JOB#: [id number] CC:
[2019-02-11 04:00] VITALS: BP 129/65
--- NOTE | 2019-02-11 04:00 | NUR ---
NURSE NOTES: pt sleeping no change in condition. will continue to monitor.
[2019-02-11] MEDS: NovoLOG Insulin Flexpen SUBQ SCH ×3 (05:33→16:30)
--- NOTE | 2019-02-11 06:50 | NUR ---
NURSE NOTES: pt remains in stable condition. pt tolerating G tube feeding. pt reached gtube feeding goal. pt receiving 55ml/hr at this time. no residual. no change of condition during my shift. all needs met during my shift. safety precautions in place. all needs met during my shift, will endorse care to incoming nurse
--- NOTE | 2019-02-11 07:31 | NUR ---
HAND-OFF: Report given to MARICEL Valderrama.
[2019-02-11 08:00] VITALS: BP 138/73
--- NOTE | 2019-02-11 08:19 | NUR ---
NURSE NOTES: Received report from Nadja CONNELLY. Pt in bed watching TV. Pt on cardiac rn, no signs of distress at this time. Bed is locked and in lowest position. Call light is next to pt for easy access. Willl continue plan of care.
--- NOTE | 2019-02-11 09:05 | General Progress Note ---
Assessment/Plan Problem List: (1) Troponin level elevated ICD Codes: R74.8 - Abnormal levels of other serum enzymes SNOMED: 442832228, 881010132, 202838070 (2) COPD exacerbation ICD Codes: J44.1 - Chronic obstructive pulmonary disease with (acute) exacerbation; R65.20 - Severe sepsis without septic shock SNOMED: 314633847 (3) Dysphagia ICD Codes: R13.10 - Dysphagia, unspecified SNOMED: 45545342 Assessment/Plan: s/p GT placement GTF GT care monitor fo residuals Subjective ROS Limited/Unobtainable: No Allergies: Coded Allergies: No Known Allergies (Unverified , 02/10/18) UNABLE TO ASSESS (Unverified , 02/03/19) Objective Last 24 Hour Vital Signs Date Time Temp Pulse Resp B/P (MAP) Pulse Ox O2 Delivery O2 Flow Rate FiO2 02/11/19 07:47 88 18 99 Nasal Cannula 2.0 28 02/11/19 07:33 98 Nasal Cannula 2.0 28 02/11/19 07:33 88 18 98 Nasal Cannula 2.0 28 02/11/19 07:33 Nasal Cannula 2.0 28 02/11/19 04:00 95 02/11/19 04:00 97.6 94 18 129/65 (86) 96 02/11/19 03:22 85 18 99 Nasal Cannula 2.0 28 02/11/19 03:12 85 18 95 Nasal Cannula 2.0 28 02/11/19 00:00 89 02/11/19 00:00 98.2 75 18 140/53 (82) 98 02/10/19 23:17 88 18 99 Nasal Cannula 2.0 28 02/10/19 23:07 87 20 96 Nasal Cannula 2.0 28 02/10/19 21:00 Nasal Cannula 2.0 Nasal Cannula 2.0 02/10/19 20:00 98.1 89 20 131/66 (87) 100 02/10/19 20:00 90 02/10/19 19:25 85 18 99 Nasal Cannula 2.0 28 02/10/19 19:15 Nasal Cannula 2.0 28 02/10/19 19:15 85 18 94 Nasal Cannula 2.0 28 02/10/19 19:15 94 Nasal Cannula 2.0 28 02/10/19 16:00 84 02/10/19 16:00 96.1 88 20 137/74 (95) 95 02/10/19 15:46 80 20 99 Nasal Cannula 2.0 28 02/10/19 15:36 83 18 94 Nasal Cannula 2.0 28 02/10/19 12:00 96.4 92 22 138/70 (92) 94 02/10/19 12:00 88 02/10/19 11:07 84 20 99 Nasal Cannula 2.0 28 02/10/19 11:00 84 18 95 Nasal Cannula 2.0 28 Intake and Output 02/10/19 02/11/19 19:00 07:00 Intake Total 400 ml Output Total 1100 ml 400 ml Balance -1100 ml 0 ml IV Total 400 ml Output Urine Total 1100 ml 400 ml # Bowel Movements 1 1 Height (Feet): 5 Height (Inches): 4.00 Weight (Pounds): 148 General Appearance: no apparent distress EENT: normal ENT inspection Neck: supple Cardiovascular: normal rate Respiratory/Chest: decreased breath sounds Abdomen: normal bowel sounds, non tender, soft Extremities: non-tender Gabriel Hammond MD February 11, 2019 09:05
[2019-02-11] MEDS: Aspirin Baby 81mg GT SCH (09:08)
[2019-02-11] MEDS: Phospha 250 Neutral tab GT SCH ×3 (09:10→18:09)
[2019-02-11] MEDS: Heparin 5000 units/ml inj SUBQ SCH (09:11)
--- NOTE | 2019-02-11 10:03 | NUR ---
NURSE NOTES: Elan from [facility] called and he will see if he can make arrangements for pt to be admitted to [facility].
[2019-02-11 12:00] VITALS: BP 132/70
--- NOTE | 2019-02-11 12:33 | Pulmonology Progress Note ---
Assessment/Plan Assessment/Plan respiratory failure COPD leukocytosis likely due to steroids WILTON PLAN GT feeds awaiting snf admission impression, plan, and exam edited and reviewed in detail care discussed with RN Subjective ROS Limited/Unobtainable: Yes Allergies: Coded Allergies: No Known Allergies (Unverified , 02/10/18) UNABLE TO ASSESS (Unverified , 02/03/19) Subjective care noted and reviewed family wants different snf s/p GT Objective Last 24 Hour Vital Signs Date Time Temp Pulse Resp B/P (MAP) Pulse Ox O2 Delivery O2 Flow Rate FiO2 02/11/19 11:33 85 18 99 Nasal Cannula 2.0 28 02/11/19 11:23 86 18 97 Nasal Cannula 2.0 28 02/11/19 09:09 138/73 02/11/19 08:00 92 02/11/19 08:00 97.3 98 18 138/73 (94) 93 02/11/19 07:47 88 18 99 Nasal Cannula 2.0 28 02/11/19 07:33 98 Nasal Cannula 2.0 28 02/11/19 07:33 88 18 98 Nasal Cannula 2.0 28 02/11/19 07:33 Nasal Cannula 2.0 28 02/11/19 04:00 95 02/11/19 04:00 97.6 94 18 129/65 (86) 96 02/11/19 03:22 85 18 99 Nasal Cannula 2.0 28 02/11/19 03:12 85 18 95 Nasal Cannula 2.0 28 02/11/19 00:00 89 02/11/19 00:00 98.2 75 18 140/53 (82) 98 02/10/19 23:17 88 18 99 Nasal Cannula 2.0 28 02/10/19 23:07 87 20 96 Nasal Cannula 2.0 28 02/10/19 21:00 Nasal Cannula 2.0 Nasal Cannula 2.0 02/10/19 20:00 98.1 89 20 131/66 (87) 100 02/10/19 20:00 90 02/10/19 19:25 85 18 99 Nasal Cannula 2.0 28 02/10/19 19:15 Nasal Cannula 2.0 28 02/10/19 19:15 85 18 94 Nasal Cannula 2.0 28 02/10/19 19:15 94 Nasal Cannula 2.0 28 02/10/19 16:00 84 02/10/19 16:00 96.1 88 20 137/74 (95) 95 02/10/19 15:46 80 20 99 Nasal Cannula 2.0 28 02/10/19 15:36 83 18 94 Nasal Cannula 2.0 28 Intake and Output 02/10/19 02/11/19 19:00 07:00 Intake Total 400 ml Output Total 1100 ml 400 ml Balance -1100 ml 0 ml IV Total 400 ml Output Urine Total 1100 ml 400 ml # Bowel Movements 1 1 Objective WDWN NAD altered reduced breath sounds bilaterally without rhonchi or wheeze [id number] without MRG NABS nontender no HSM; GT no CCE nonfocal Current Medications Medications (Trade) Dose Ordered Sig/Malik Route PRN Reason Start Time Stop Time Status Last Admin Dose Admin Acetaminophen (Tylenol) 650 mg Q4H PRN ORAL Mild Pain/Temp > 100.5 02/07/19 15:00 03/06/19 14:59 Albuterol/ Ipratropium (Albuterol/ Ipratropium) 3 ml Q4H PRN HHN Shortness of Breath 02/09/19 03:45 02/14/19 03:44 Albuterol/ Ipratropium (Albuterol/ Ipratropium) 3 ml Q4HRT HHN 02/09/19 07:00 02/14/19 06:59 02/11/19 11:23 Aspirin (ASA) 81 mg DAILY GT 02/10/19 09:00 03/06/19 08:59 02/11/19 09:08 Benazepril HCl (Lotensin) 40 mg DAILY GT 02/11/19 09:00 03/13/19 08:59 02/11/19 09:09 Ciprofloxacin 200 ml @ 200 mls/hr Q8HR IV 02/08/19 22:00 02/15/19 21:59 02/11/19 05:33 Dextrose (Dextrose 50%) 25 ml Q30M PRN IV Hypoglycemia 02/07/19 14:00 03/06/19 00:29 Dextrose (Dextrose 50%) 50 ml Q30M PRN IV Hypoglycemia 02/07/19 14:00 03/06/19 00:29 Heparin Sodium (Porcine) (Heparin 5000 units/ml) 5,000 units EVERY 12 HOURS SUBQ 02/07/19 21:00 03/06/19 00:00 02/11/19 09:11 Hydralazine HCl (Apresoline) 10 mg Q6H PRN IV FOR SBP>180 02/07/19 15:00 03/06/19 14:59 Insulin Aspart (NovoLOG) BEFORE MEALS AND HS SUBQ 02/07/19 16:30 03/06/19 06:29 02/10/19 17:18 Nystatin (Nystatin) 5 ml Q6HR GT 02/09/19 12:00 02/15/19 12:59 02/11/19 12:05 Ondansetron HCl (Zofran) 4 mg Q8H PRN IVP Nausea & Vomiting 02/07/19 14:30 03/06/19 14:29 Pantoprazole (Protonix) 40 mg Q24H IVP 02/08/19 21:00 03/06/19 20:59 02/10/19 21:02 Phosphorus (Phospha 250 Neutral) 250 mg THREE TIMES A DAY GT 02/09/19 13:00 03/10/19 13:29 02/11/19 12:02 Olegario Dowling MD February 11, 2019 12:33
[2019-02-11 16:00] VITALS: BP 129/61
[2019-02-11] MEDS ORDERED: ACETAMINOPHEN325 M1 ORAL (16:34)
[2019-02-11] MEDS ORDERED: ASPIR 8181 MG GT (16:36)
[2019-02-11] MEDS ORDERED: BENAZEPRIL HCL40 MG GT (16:38)
[2019-02-11] MEDS ORDERED: DUONEB 0.5-3(2.53 ML HHN ×2 (16:42→16:44)
[2019-02-11] MEDS ORDERED: HEPARIN SO5000 UNIT2 SUBQ (16:44)
[2019-02-11] MEDS ORDERED: NOVOLOG100 UNIT/4 SQ (16:47)
[2019-02-11] MEDS ORDERED: NYSTATIN100000 UN1 GT (16:49)
[2019-02-11] MEDS ORDERED: PHOSPHA 250 NE250 M1 GT (16:51)
--- NOTE | 2019-02-11 20:11 | NUR ---
NURSE NOTES: dr Dowling aware pt hasn't urinated since 1699 when Thompson was dc. said. I can place a thompson and dc pt or the the facility receiving pt can place the Thompson.
--- NOTE | 2019-02-11 20:15 | NUR ---
NURSE NOTES: pt refusing Sanon insertion at this time. pt said "I want to wait to see if I am able to pee if not they can inserted"
--- NOTE | 2019-02-11 20:24 | NUR ---
NURSE NOTES: Per Doctor Curry, there is an insurance authorization for pt to be admitted to [facility] so pt is ok to be admitted there when they have a room available and after they check all necessary admission documentation. pt niece (Wanad) is aware of pt's transfer to [facility] ([facility] She will meet pt at facility [facility] All necessary paperwork for admitting pt to [facility] has been faxed to [facility] so process can get started once they are review all documentation.
--- NOTE | 2019-02-11 20:27 | NUR ---
NURSE NOTES: Patient is being discharged from medical care. ambulance here to pick him up, pt Awake, alert and oriented x4. All medical devices such as IV, Telemonitor, and ID band were removed. Patient received all personal belongings. pt left the unit in stable condition.
--- NOTE | 2019-02-11 20:33 | NUR ---
Pt Sanon was DC at 5pm waiting for pt to void.
--- NOTE | 2019-02-11 20:35 | NUR ---
HAND-OFF: Report given to Nadja CONNELLY.
--- NOTE | 2019-02-12 02:15 | Progress Note ---
DATE: 02/11/2019 SUBJECTIVE: The patient is status post PEG placement with nutrition being tolerated now. He is in no respiratory distress. OBJECTIVE: VITAL SIGNS: Blood pressure 138/73, heart rate 98, respirations 18, and afebrile. LUNGS: Bilateral breath sounds. Few rhonchi. HEART: Regular rhythm and rate. Normal S1, S2 with a fourth heart sound. ABDOMEN: Soft. G-tube intact. EXTREMITIES: No edema. IMPRESSION: 1. Acute on chronic diastolic congestive heart failure. 2. Dysphagia status post PEG. 3. Hypertensive heart disease. 4. Cerebrovascular disease with history of CVA. 5. Resolved dehydration and hyponatremia and corrected hypomagnesemia. 6. Aspiration pneumonia. 7. Chronic obstructive pulmonary disease exacerbation. PLAN: 1. Additional diuresis. 2. Trend natriuretic peptide assay. 3. Monitor volume status and cardiorenal parameters. 4. Nutritional support by feeding tube. 5. DVT prophylaxis. 6. Respiratory hygiene. Gee Davey M.D. DR: LUIS JOB#: [id number] CC:
--- NOTE | 2019-02-12 17:45 | Operative Note - Dictated ---
DATE OF OPERATION: 02/09/2019 GASTROENTEROLOGY PROCEDURE REPORT PROCEDURE: Upper gastrointestinal endoscopy with gastrostomy tube placement. SURGEON: Chavez Fenton M.D. ANESTHESIA: Please see the separate anesthesiologist notes for details. PRE-ENDOSCOPIC DIAGNOSIS: Dysphagia. POSTOPERATIVE DIAGNOSIS: Status post gastrostomy tube placement. DESCRIPTION OF PROCEDURE: The procedure, its risks, indications, alternatives, and possible complications including, but not limited to bleeding, infection, perforation, , and anesthesia complications were explained to the patient's family and informed consent was obtained. The patient was then sedated in the left lateral decubitus position. A diagnostic upper endoscope was introduced through oropharynx and advanced to the duodenum without difficulty. The endoscope was then gradually withdrawn and mucosa examined carefully. Examination of the upper gastrointestinal mucosa revealed no abnormalities. Location for placement of gastrostomy tube was identified by palpation and transillumination techniques. The outside skin was sterilized, anesthetized, and incised. Trocar needle was used to place the gastrostomy tube in the standard pull technique. The patient tolerated the procedure well and left to recovery in good condition. COMPLICATIONS: None. RECOMMENDATIONS: 1. Observe overnight. 2. Begin tube feedings tomorrow. Chavez Fenton M.D. DR: YURI JOB#: [id number] CC:
--- NOTE | 2019-02-13 12:10 | Discharge Summary ---
Discharge Summary Discharge Summary _ DATE OF ADMISSION: 02/03/2019 DATE OF DISCHARGE: 02/11/2019 DISCHARGED BY: Dr. Dowling REASON FOR ADMISSION: 88 years old male with past medical history of COPD, hypertension, prostate cancer, active smoker, presented to the emergency room due to severe shortness of breath. Paramedics found patient to be severely short of breath , and he was placed on the BiPAP prior to arrival. Patient was unable to provide significant history , since he was not able to speak in full words sentences. Patient was tachycardic ,tachypneic, and hypoxic. Blood pressure was severely elevated 170/107. BiPAP failed , and patient required emergency oral intubation Laboratory work-up revealed leukocytosis WBC 15.7, stable hemoglobin and hematocrit. Stable electrolytes. BUN 53, creatinine 3.3. Total bilirubin 1.8, direct bilirubin 0.9. Troponin elevated- 0.12. Lactic acid 4.8. EKG revealed sinus tachycardia, no acute ischemic changes. Chest x-ray confirmed satisfactory placement of endotracheal tube. Chest x- ray revealed evidence of increased density in the lungs . Chronic lung disease noted as well, no pneumothorax Urinalysis revealed +3 protein, +2 glucose, no evidence of acute UTI. Patient pancultured, started on empiric antibiotics and admitted to ICU for further management. CONSULTANTS: proposal manager writer GI specialist Dr. Fenton [facility]SE: Patient admitted to ICU. Hemodynamic status was closely monitored to keep mean arterial blood pressure above 65 Patient started the IV hydration and empiric antibiotics. Ventilator support and pulmonary toilet provided. Patient follow-up with ABG and chest x-ray. Ventilator setting further titrated based on ABGs. Patient started on intravenous steroids which were gradually tapered down. Patient eventually was able to be extubated . Blood cultures were negative. Sputum culture revealed Serratia. Antibiotic regimen optimized based on culture. Anti-platelet therapy with aspirin continued. DVT and GI prophylaxis provided. Blood pressure was closely monitored and managed with the current medication regimen. Dental Assistant Teacher followed. Echocardiogram demonstrated mild hypokinesis of the inferior septal and inferior wall. Left ventricular ejection fraction estimated to be 45%. Moderate left ventricular hypertrophy with prominent basal septum noted. Right ventricular systolic pressure of 45 consistent with borderline moderate pulmonary hypertension. Venous duplex bilateral lower extremity revealed no evidence of acute DVT. Troponin was trending. Second troponin -0.339 and then started to go down. No acute ischemic changes on EKG/telemetry. Per proposal manager writer patient had acute myocardial ischemia. Patient was on antiplatelet therapy with aspirin. Lipid panel was stable. TSH within normal limits. Patient started on gentle diuresis after initial hypovolemia resolved. Volumes and cardiorenal parameters were closely monitored. Supplemental oxygen provided as needed to keep pulse oximetry above 92%. Pulmonary toilet provided. Patient failed bedside swallow evaluation. Speech therapist recommended keep n.p.o. and reinsert NG tube. GI consult was requested. Patient subsequently undergone EGD with gastrostomy tube placement. Patient was observed overnight, and tube feeding started in the morning. Patient was able to tolerate tube feeding. G-tube site care provided. Strict aspiration /reflux precaution provided. Abdominal ultrasound revealed cholelithiasis , no ascites, no hydronephrosis, no dilated ducts. Patient clinically stabilized and was transferred to the detention facility for continuation of care FINAL DIAGNOSES: Acute respiratory failure requiring intubation, s/p extubation COPD exacerbation Aspiration pneumonia with Serratia Hypovolemia and dehydration -resolved Acute myocardial ischemia Acute on chronic diastolic congestive heart failure Acute renal failure likely due to dehydration resolved Lactic acidosis -resolved Electrolyte imbalances: hypomagnesemia hypophosphatemia hypokalemia, hypernatremia Dysphagia, status post G-tube placement Cerebrovascular disease with history of CVA DISCHARGE MEDICATIONS: See Medication Reconciliation list. DISCHARGE INSTRUCTIONS: Patient was discharged to the detention facility. Follow up with medical doctor at the facility. I have been assigned to dictate discharge summary for this account. I was not involved in the patient's management. May Coelho NP February 13, 2019 12:10
== END 2019-02-11 20:50 | DRG 208 ==
LOC: EDBD 18:52 → EMR 19:08 → ICU 19:42 → EDBEDREQ 21:14 → 2E 02-07 15:00
DX: J44.0 Chronic obstructive pulmonary disease with (acute) lower respiratory infection (principal); J15.6 Pneumonia due to other Gram-negative bacteria; J69.0 Pneumonitis due to inhalation of food and vomit; I21.4 Non-ST elevation (NSTEMI) myocardial infarction; I50.33 Acute on chronic diastolic (congestive) heart failure; E43 Unspecified severe protein-calorie malnutrition; J96.01 Acute respiratory failure with hypoxia; E87.2 Acidosis; N17.9 Acute kidney failure, unspecified; E87.0 Hyperosmolality and hypernatremia; J44.1 Chronic obstructive pulmonary disease with (acute) exacerbation; E86.0 Dehydration; E83.42 Hypomagnesemia; E87.6 Hypokalemia; E83.39 Other disorders of phosphorus metabolism; R13.10 Dysphagia, unspecified; I11.0 Hypertensive heart disease with heart failure; Z86.73 Personal history of transient ischemic attack (TIA), and cerebral infarction without residual deficits; Z68.25 Body mass index [BMI] 25.0-25.9, adult; F17.200 Nicotine dependence, unspecified, uncomplicated
CPT/HCPCS: 31500; 36415; 36600; 71045; 74018; 76700; 80048; 80053; 80061; 81003; 82248; 82550; 82553; 82803; 82962; 83605; 83690; 83735; 83880; 84100; 84132; 84443; 84484; 85007; 85025; 85610; 85730; 87040; 87070; 87081; 87181; 87205; 93005; 93306; 93970; 94002; 94003; 94150; 94640; 94664; 94760; 96365; 96368; 96375; 96376; 99291; C9399; J1815; J7620; J8499